=== PATIENT | male | born 1965 | race Caucasian/White ===

== ENCOUNTER 2024-02-28 11:13 | Inpatient (IN) | payer OTHER, SELFPAY ==
[2024-02-28 04:43] VITALS: BMI 30.8
[2024-02-28 04:49] VITALS: BP 163/82
--- NOTE | 2024-02-28 05:16 | ED.SKININJ ---
HPI-Injury
<JIMMY Dean - Last Filed: 02/28/24 06:58>
General
Chief Complaint: Skin Surface Trauma
Time Seen by Provider: 02/28/24 04:56
Travel History
Have you had any contact with someone who has COVID-19?: No
Do you have any symptoms of coronavirus? Fever > 100 degrees, chills, cough, shortness of breath, sore throat, loss of taste or smell, muscle aches, or headache?: No
History of Present Illness-Injury
Is pt an associate of [facility]?: No
Initial Injury comments:
This is a 58 yo male presenting for a laceration x 1 week. He states he cut his L index finger on a pulp grinder last week. States wound became more tender and swollen, and yellow throughout the week. Woke up this morning to throbbing pain. States
extremely tender to touch. He denies purulent drainage.
Past History
<JIMMY Dean - Last Filed: 02/28/24 06:58>
Past History
ED Past Medical History: HTN and Other (Migraine headache)
ED Past Surgical History: Appendectomy
Social History
Tobacco: Smoker
Alcohol: None
Drug: None
Review of Systems
<JIMMY Dean - Last Filed: 02/28/24 06:58>
Review of Systems
Allergies reviewed?: Yes
Constitutional: Reports no symptoms
Phy Exam
<JIMMY Dean - Last Filed: 02/28/24 06:58>
Physical Exam
Physical Exam:
<1 cm closed laceration located on dorsal aspect of L index finger. Finger held in slight flexion, swollen, tender, and pain with passive extension. Area is yellow with no drainage. Sensation intact, capillary refill time normal.
General Physical Exam
General Presentation: well appearing
General age: appears stated age
General Habitus: normal
General Mental: alert
Course
<JIMMY Dean - Last Filed: 02/28/24 06:58>
Orders/Labs/Results
Orders:
Orders
02/28/24 05:08
Finger(s)/Thumb 2 View Lt [CR Finger(s)/thumb Min 2 Vw Lt] Urgent
Comment:
Reason For Exam: possible FB, pus
Indicate Which Finger:: Index Finger
02/28/24 05:24
Tetanus/Diphth/Acelpertussis [Adacel] 0.5 ml IM .ONCE ONE
02/28/24 05:52
Complete Blood Count/With Diff Urgent
Comprehensive Metabolic Panel Urgent
02/28/24 05:53
CeFAZolin 2 GRAM [Ancef] 2 grams in 10 ml IV NOW
Abnormal Lab Results
02/28/24
05:52
RBC 4.13 L 10^6/uL
(4.70-6.10)
MCV 96.9 H fL
(80.0-94.0)
MCH 33.9 H pg
(27.0-31.0)
MPV 11.0 H fL
(7.4-10.4)
Absolute Monos (auto) 0.8 H 10^3/uL
(0.1-0.6)
Lymphocytes % 18.6 L %
(20.5-51.1)
Monocytes % 9.5 H %
(1.7-9.3)
Chloride 111 H mmol/L
(98-107)
Carbon Dioxide 21 L mmol/L
(22-30)
BUN 23 H mg/dl
(9-20)
Glucose 113 H mg/dl
(70-99)
02/28/24 05:52
02/28/24 05:52
Vital Signs
Initial and Last Documented VS:
Initial Vital Signs
Temp Pulse Resp BP Pulse Ox
98.2 F 51 20 163/82 99
02/28/24 04:49 02/28/24 04:49 02/28/24 04:49 02/28/24 04:49 02/28/24 04:49
Last Documented Vital Signs
Temp Pulse Resp BP Pulse Ox
98.2 F 51 20 163/82 99
02/28/24 04:49 02/28/24 04:49 02/28/24 04:49 02/28/24 04:49 02/28/24 04:49
<Celestine Alcantara, DO - Last Filed: 02/28/24 05:31>
Orders/Labs/Results
Orders:
Orders
02/28/24 05:08
Finger(s)/Thumb 2 View Lt [CR Finger(s)/thumb Min 2 Vw Lt] Urgent
Comment:
Reason For Exam: possible FB, pus
Indicate Which Finger:: Index Finger
02/28/24 05:24
Tetanus/Diphth/Acelpertussis [Adacel] 0.5 ml IM .ONCE ONE
02/28/24 05:52
Complete Blood Count/With Diff Urgent
Comprehensive Metabolic Panel Urgent
02/28/24 05:53
CeFAZolin 2 GRAM [Ancef] 2 grams in 10 ml IV NOW
Abnormal Lab Results
02/28/24
05:52
RBC 4.13 L 10^6/uL
(4.70-6.10)
MCV 96.9 H fL
(80.0-94.0)
MCH 33.9 H pg
(27.0-31.0)
MPV 11.0 H fL
(7.4-10.4)
Absolute Monos (auto) 0.8 H 10^3/uL
(0.1-0.6)
Lymphocytes % 18.6 L %
(20.5-51.1)
Monocytes % 9.5 H %
(1.7-9.3)
Chloride 111 H mmol/L
(98-107)
Carbon Dioxide 21 L mmol/L
(22-30)
BUN 23 H mg/dl
(9-20)
Glucose 113 H mg/dl
(70-99)
02/28/24 05:52
02/28/24 05:52
Vital Signs
Initial and Last Documented VS:
Initial Vital Signs
Temp Pulse Resp BP Pulse Ox
98.2 F 51 20 163/82 99
02/28/24 04:49 02/28/24 04:49 02/28/24 04:49 02/28/24 04:49 02/28/24 04:49
Last Documented Vital Signs
Temp Pulse Resp BP Pulse Ox
98.2 F 51 20 163/82 99
02/28/24 04:49 02/28/24 04:49 02/28/24 04:49 02/28/24 04:49 02/28/24 04:49
<JIMMY Dean - Last Filed: 02/28/24 06:58>
MDM/Problems Addressed
Differential Diagnosis Includes:
Infectious Tenosynovitis, abcess
MDM/Problems Addressed:
1. Infectious Tenosynovitis
- Kanaval signs positive
- X ray of L digit
- Orthopedic surgery
2. Finger Abcess
-
<JIMMY Dean - Last Filed: 02/28/24 06:58>
*Critical Care Note
Total Time (30-74mins, 75-104mins- exclusive of procedures): Not Applicable
ED Attending Note
<JIMMY Dean - Last Filed: 02/28/24 06:58>
-
Portions of this chart may have been created with voice recognition software.� Occasional wrong word or��sound alike� substitutions may have occurred due to the inherent limitations of voice recognition software.
<Celestine Alcantara, - Last Filed: 02/28/24 05:31>
ED Attending Note
Patient seen and examined by attending physician: Yes
I performed the substantive portion of visit, reviewed & personally made and approve the management plan that is documented in note by myself or ASHER.: Yes
ED Attending Note:
58-year-old male presents with injury to his left index finger that he sustained over a week ago. He states that a developed abrasion and injury to his left index finger while using a pulp grinder. Is possible that piece of metal flew off into his
wound. Patient denies fever, chills, nausea or vomiting. Patient is concerned due to infection. Patient was seen in conjunction with the PA student. I have reviewed and agree with the history and treatment plan presented. On my independent
physical exam, patient is awake, alert, and oriented x3 and spoke with Dr. Spence who states that patient should get Ancef, and kept in the emergency department until the Ortho PA gets into work. For possible aspiration.
Discharge Plan
Departure
Prescriptions:
No Action
Eliquis 5 mg Tablet
5 mg PO BID Qty: 60 0RF
furosemide 40 mg Tablet
40 mg PO DAILY Qty: 30 0RF
atorvastatin 40 mg Tablet
40 mg PO DAILY
amiodarone 200 mg tablet
200 mg PO DAILY
carvedilol 12.5 mg Tablet
6.25 mg PO BID Qty: 60 0RF
Rx Instructions:
Please note decreased dose
Referrals:
UNKNOWN - PT DOES,NOT KNOW [Unknown Provider] -
Interventions
Interventions:
*Risk Screen - Suicide Last Done: 02/28/24 04:49
*General Assessment Last Done: 02/28/24 04:49
*Neglect/Abuse Screening Last Done: 02/28/24 04:49
ED- Fall Risk Assessment Last Done: 02/28/24 04:49
*ED COVID-19 Vaccine History Last Done: 02/28/24 04:49
ED-Skin Assessment Last Done: 02/28/24 05:44
Discharge Date and Time
Print Language: [place] CITIZ[place]
[2024-02-28] MEDS: ADACEL 0.5 ML IM (05:54)
[2024-02-28 06:04] LABS: % Basophils 0.6 % (0-2); % Eosinophils 1.4 % (0-6); % Immature Granulocytes 0.2 % (0-0.5); % Lymphocytes 18.6 % (20.5-51.1); % Monocytes 9.5 % (1.7-9.3); % Neutrophils 69.7 % (42.2-75.2); Absolute Basophils 0.1 10^3/uL (0-0.2); Absolute Eosinophils 0.1 10^3/uL (0-0.7); Absolute Lymphocytes 1.7 10^3/uL (1.2-3.4); Absolute Monocytes 0.8 10^3/uL (0.1-0.6); Absolute Neutrophils 6.2 10^3/uL (1.4-6.5); Mean Corpuscular Hgb 33.9 pg (27.0-31.0); Mean Corpuscular Volume 96.9 fL (80.0-94.0); Nucleated Red Blood Cells % 0 % (-); Platelet Count 173 10^3/uL (130-400); Red Blood Cell Count 4.13 10^6/uL (4.70-6.10); Red Cell Dist. Width 12.1 % (11.5-14.5); White Blood Cell Count 8.9 10^3/uL (4.8-10.8)
[2024-02-28] MEDS: ANCEF 10 IV (06:08)
[2024-02-28 06:17] LABS: ALT (SGPT) 28 U/L (0-50); AST (SGOT) 29 U/L (17-59); Albumin 4.1 g/dl (3.5-5.0); Alkaline Phosphatase 100 U/L (38-126); Blood Urea Nitrogen 23 mg/dl (9-20); Carbon Dioxide 21 mmol/L (22-30); Chloride 111 mmol/L (98-107); Estimated Creatinine Clearance 108 ml/min; Glucose 113 mg/dl (70-99); Potassium 3.9 mmol/L (3.5-5.1); Sodium 139 mmol/L (135-145); Total Bilirubin 0.5 mg/dl (0.2-1.3); Total Protein 6.5 g/dl (6.3-8.2); eGFR > 60.00
--- NOTE | 2024-02-28 07:58 | CON.ORTHO ---
Consultation
-
Date/Time Consultation Requested: 02/28/2024; 0600
Date/Time Consultation Performed: 02/28/2024; 07
Requesting Provider: unknown
Performing Provider: Sarah Bacon PA-C for Dr. Amos Spence
Reason for Consultation: Left index finger laceration
Consultation - Orthopedics
History
Is a 58-year-old LHD male with past medical history of hypertension and migraine headaches seen today for evaluation of a laceration of his left index finger. 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
finger on a tool grinder operator external. He denies any significant bleeding from the laceration initially, but reports over the last week his finger has become progressively more swollen and tender. He woke up this morning with throbbing pain and it was extremely
tender to touch. This prompted him to present to [facility]. He denies any drainage, or purulence from the wound. He denies any fevers. He denies any issues like this in the past. He has not been evaluated for the wound up to this point.
Allergies / Home Medications
Allergy/AdvReac Type Severity Reaction Status Date / Time
No Known Allergies Allergy Verified 02/28/24 04:47
�Medication �Instructions �Recorded
apixaban 5 mg tablet (Eliquis) 5 mg PO BID Blood clot 02/08/23
prevention/tx #60 tabs
furosemide 40 mg tablet 40 mg PO DAILY Blood clot 02/08/23
prevention/tx #30 tabs
amiodarone 200 mg tablet 200 mg PO DAILY arrythmia 05/05/23
atorvastatin 40 mg tablet 40 mg PO DAILY 05/05/23
carvedilol 12.5 mg tablet 6.25 mg (1/2 x 12.5 mg) PO BID 05/05/23
Arrhythmia #60 tabs
Vital Signs / Lab Results
Temp Pulse Resp BP Pulse Ox
98.2 F 51 20 163/82 99
02/28/24 04:49 04/17/24 04:49 02/28/24 04:49 02/28/24 04:49 02/28/24 04:49
02/28/24 05:52
02/28/24 05:52
XR of the left hand taken today and independently interpreted by me reveal soft tissue swelling over the dorsum of the index finger. No obvious foreign body present.
Directed exam of the left hand reveals small laceration over the dorsal aspect of the PIP joint. Erythema over the dorsum of the finger, no streaking or extension into the rest of the hand. No obvious flexor tenosynovitis present. Small area of
fluctuance over the PIP joint. No active draining, bleeding or purulence able to be expressed. Very limited flexion of the finger secondary to pain. Patient able to maintain full extension. Sensation intact to light touch. Capillary refill less
than 2 seconds.
Assessment / Plan
Left index finger laceration
--Patient was seen and evaluated with the assistance of Dr. Bailey.
--There does appear to be a small collection overlying the PIP joint of Silvestre's left index finger. At this point there is not indication for surgical intervention. Could consider bedside incision and drainage, but will continue to monitor for the
time being.
--Admit patient for IV antibiotics and observation. Recommend Zosyn.
--TID finger soaks with warm water and chlorhexidine.
--Encouraged gentle ROM of the finger. Patient may benefit from PT/OT while admitted.
--Pain control per primary.
--Orthopedics will continue to follow along.
[2024-02-28] MEDS: ZOSYN 100 IV (09:33)
--- NOTE | 2024-02-28 10:36 | HPS.HSE ---
Family Physician
-
Family Physician: Husam Baldwin
Chief Complaint
-
Left second finger pain and swelling
History of Present Illness
58-year-old male injured his left index finger using a grinder mill operator 2 weeks ago. Subsequently developed increasing pain and swelling of the finger over the past 2 weeks. Did not seek medical care prior to arrival today. Has not been on antibiotics.
Denies fevers or chills.
Medical History
Past Medical History
Past Medical History: Reports Other
Additional Past Medical History:
Paroxysmal atrial fibrillation
Essential hypertension
Migraine headaches
Nonischemic cardiomyopathy, chronic heart failure reduced EF
Past Surgical History: Reports Appendectomy
Social History
Tobacco: Smoker
Alcohol: None
Drug: None
Family History
Family History: Not pertinent
Allergies / Home Medications
Allergies reflects when Allergies were last updated in [facility].
Home Medications with original date entered in [facility]
Allergy/Medication List:
Allergies
Allergy/AdvReac Type Severity Reaction Status Date / Time
No Known Allergies Allergy Verified 02/28/24 04:47
Home Medications
acetaminophen 325 mg tablet (Tylenol) 650 mg PO DAILYPRN PRN mild pain 02/28/24
apixaban 5 mg tablet (Eliquis) 5 mg PO BID 02/28/24
carvedilol 6.25 mg tablet 6.25 mg PO BID 02/28/24
lisinopril 5 mg tablet 5 mg PO DAILY 02/28/24
spironolactone 25 mg tablet 25 mg PO DAILY 02/28/24
Review of Systems
-
History Source: Patient
A 12 point ROS was completed and negative except as noted: Yes
Physical Exam
Vital Signs
Vital Signs
Temp Pulse Resp BP Pulse Ox
98.2 F 51 20 163/82 99
02/28/24 04:49 02/28/24 04:49 02/28/24 04:49 02/28/24 04:49 02/28/24 04:49
Physical Exam
General: Well Developed, No Apparent Distress and Comfortable
HEENT: Anicteric and Moist mucous membranes
Respiratory: Clear
Cardiac: S1/S2 and Regular Rhythm
GI: Soft, Non Tender and Non Distended
Genito-urinary: Deferred by me
Musculoskeletal: No Clubbing, No Cyanosis, No Edema and Other (Left second PIP joint diffuse erythema, swelling, tenderness with limited range of motion, superficial ulcer without drainage)
Skin: Warm and Dry
Neuro: AO x 3
Hematologic/Lymphatic: No Lymphadenopathy
Psych: Calm
Laboratory Results
-
02/28/24 05:52
02/28/24 05:52
Laboratory Results
Total Bilirubin 0.5 mg/dl (0.2-1.3) 02/28/24 05:52
AST 29 U/L (17-59) 02/28/24 05:52
ALT 28 U/L (0-50) 02/28/24 05:52
Alkaline Phosphatase 100 U/L (38-126) 02/28/24 05:52
Impression/Plan
-
Left second finger tenosynovitis -involving PIP joint. X-ray of finger shows mild diffuse soft tissue swelling, no foreign body noted. No cortical destruction. Orthopedic surgery recommends admission to the hospital, IV antibiotics, soaks. Admit
to [facility].
Start IV vancomycin, ceftriaxone.
Paroxysmal atrial fibrillation -continue Eliquis if okay with orthopedics.
Chronic heart failure reduced EF -stable.
Essential hypertension -stable.
History of migraines
Obesity due to excess calories
Full code
[2024-02-28 11:43] LABS: Erythrocyte Sed Rate 16 mm/hour (0-20)
[2024-02-28 12:00] VITALS: BP 118/84
[2024-02-28 13:29] VITALS: BP 144/58; BMI 30.3
--- NOTE | 2024-02-28 13:42 | PHA.VAN.IN ---
Assessment
- Assessment
Renal Function: Appears similar to baseline
Concomitant Antimicrobials: ceftriaxone
AUC Dosing Plan
- Dosing Variables
Dosing Weight (kg): 90
Dosing CrCl (ml/min): 108
Vd coefficient (L/kg): 0.7
- Empiric Dosing
Initial / Loading Dose: 2000mg - administration pending
Maintenance Regimen: Vanc 1250mg Q12H starting 02/28 06
Estimated AUC (mcg*h/mL): 452
Estimated Peak (mcg*h/mL): 29.3
Estimated Trough (mcg/ml): 10.9
Estimated Half Life (H): 7.4
- Monitoring
No levels ordered at this time: consider levels in next few days
Pharmacokinetics Vancomycin I
- -
Patient Age: 58
Patient Sex: Male
Vancomycin Day #: 1
Indication: Skin And Soft Tissue
Requesting Provider: Dr. Varela
Pertinent Antimicrobial Allergies:
NKDA
Height / Weight:
Height 5 ft 8 in
Actual Weight 90.35 kg
Pertinent Past Medical History: BMI ~30
- Vital Signs / Lab Results
Temp Pulse Resp BP Pulse Ox
98 F 63 18 144/58 96
02/28/24 13:29 02/28/24 13:29 02/28/24 13:29 02/28/24 13:29 02/28/24 13:29
Lab Results - Hematology
02/28/24
05:52
WBC 8.9
Lab Results - Chemistry
02/28/24
05:52
BUN 23 H
Creatinine 0.8
Estimated Creat Clear 108
Albumin 4.1
--- NOTE | 2024-02-28 14:18 | PTCARENOTE ---
Received pt from ER via [facility]; accompanied by ER staff. PT AAO x3, CAI; has decreased ROM Lt index finger d/t redness/edema/pain. pt ambulatory to bed. VSS. ON room air- pulseox 96%. Abd obese, round, to start reg diet. Pt DTV; will void in BR;
urinal at bedside. Lt index finger reddened/edematous/tender; has yellowed central area with laceration; no drainage noted. Pt instructed to keep LUE elevated on pillow. Oriented to 4East, currently resting quietly. Will continue to monitor.
[2024-02-28] MEDS: ROCEPHIN 2000 MG IV (14:57)
[2024-02-28] MEDS: VANCOCIN 540 MG IV (14:57)
[2024-02-28] MEDS: STERILE WATER FOR INJECTION 20 ML IV (14:57)
[2024-02-28 15:11] VITALS: BP 123/54
[2024-02-28] MEDS: ELIQUIS 5 MG PO (20:19)
[2024-02-28] MEDS: COREG 6.25 MG PO (20:20)
[2024-02-28 23:09] VITALS: BP 124/51
[2024-02-29] MEDS: VANCOCIN 275 MG IV ×2 (06:10→18:08)
[2024-02-29 07:55] VITALS: BP 96/65
--- NOTE | 2024-02-29 08:54 | W.PN.HOSP.TC ---
Today's Communication/Plan
-
Continue antibiotics
Await cultures
Assessment / Plan
Assessment / Plan
Gen-AAOx3, NAD
HEENT-NC, AT, anicteric, clear oral mm
Neck-supple
CV-reg, no M, +S1/S2
Lungs-clear B/L
Abd-soft, NT, ND
Ext-no edema
Musculoskeletal-no cyanosis, clubbing, left index finger with inflammation, erythema, drainage of PIP joint
Skin-warm and dry
Neuro-grossly non-focal
Psych-calm, cooperative
Left second finger tenosynovitis -involving PIP joint. X-ray of finger shows mild diffuse soft tissue swelling, no foreign body noted. No cortical destruction. Incision and drainage performed today by orthopedics. Send fluid for culture.
Continue IV antibiotics. Inflammatory markers are normal.
Paroxysmal atrial fibrillation -continue Eliquis.
Chronic heart failure reduced EF -stable.
Essential hypertension -stable.
History of migraines
Obesity due to excess calories
Full code
Anticipated Discharge: 24 - 48 hours
Subjective/Interval History
-
Date of Service: February 29, 2024
Patient seen and examined. Complaining of throbbing of left index finger.
Objective Data
-
Vital Signs:
Vital Signs
Temp Pulse Resp BP Pulse Ox
98.1 F 55 20 124/51 96
02/28/24 23:09 02/28/24 23:09 02/28/24 23:09 02/28/24 23:09 02/28/24 23:09
I&O
02/28/24 02/29/24 03/01/24
06:59 06:59 06:59
Intake Total 1020 / 1020
Balance 1020 / 1020
Review of Systems
-
History Source: Patient
All other systems: Reviewed and negative
[2024-02-29] MEDS: COREG 6.25 MG PO ×2 (09:22→20:44)
[2024-02-29] MEDS: ALDACTONE 25 MG PO (09:22)
[2024-02-29] MEDS: ELIQUIS 5 MG PO ×2 (09:23→20:43)
[2024-02-29] MEDS: ZESTRIL 5 MG PO (09:23)
--- NOTE | 2024-02-29 12:20 | W.PN.UPDATE ---
Update Note
Progress Note Update
Late document entry because of difficulty signing onto [employer]. Patient was seen February 29, 2024 at 7:30 AM.
Patient feels as though left index finger is about the same. He is tolerating IV antibiotics. He is afebrile while WBC/inflammatory markers remain normal. Small laceration noted over the dorsal aspect left index finger at the PIP joint.
Warmth and erythema noted and smallPT/OT just below the PIP joint dorsally. Tenderness noted in this vicinity. Passive motion is uncomfortable but pain does not track up the extensor tendon. Distal neurovascular was intact. After reviewing risk
and potential complications with patient he has agreed to bedside I&D. The left index finger was cleaned and prepped with warm soapy water, Betadine and alcohol. Then a 11 blade scalpel was used to make a small 3 mm incision over the skin.
Purulent drainage came out and aerobic/anaerobic cultures obtained then sent to microbiology. Additional purulent drainage was manually expressed out the incision. Light dressing was applied. He will continue with IV antibiotics, ice with
elevation and pain medication as needed. He will start dilute Hibiclens soaks and may utilize warm compresses additionally. Reevaluate tomorrow and if improvement may switch over to oral antibiotics and sent home.
[2024-02-29] MEDS: ROCEPHIN 2000 MG IV (14:01)
[2024-02-29] MEDS: STERILE WATER FOR INJECTION 20 ML IV (14:01)
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
--- NOTE | 2024-02-29 14:55 | PHA.VAN.FU ---
Vancomycin Assessment / Plan
- Assessment
Renal Function: No New Labs Today
In the past 24 hrs, patient has been: Afebrile
Concomitant Antimicrobials: ceftriaxone
- Dosing Plan
Continue: Vanc 1250mg Q12H
- Monitoring Plan
No level(s) ordered at this time: consider levels in next few days
- Follow Up
Pharmacy will continue to follow.
Vancomycin Follow UP
- -
Patient Age: 58
Patient Sex: Male
Vancomycin Day #: 2
Indication: Skin And Soft Tissue
Requesting Provider: Dr. Varela
Pertinent Antimicrobial Allergies:
NKDA
Height / Weight:
Height 5 ft 8 in
Actual Weight 90.35 kg
Pertinent Past Medical History: BMI ~30
- Vital Signs / Lab Results
Temp Pulse Resp BP Pulse Ox
98.0 F 63 18 96/65 97
02/29/24 07:55 02/29/24 09:23 02/29/24 07:55 02/29/24 09:23 02/29/24 09:21
Lab Results - Hematology
02/28/24
05:52
WBC 8.9
Lab Results - Chemistry
02/28/24
05:52
BUN 23 H
Creatinine 0.8
Estimated Creat Clear 108
Albumin 4.1
[2024-02-29 15:55] VITALS: BP 122/51
--- NOTE | 2024-02-29 16:54 | PTCARENOTE ---
Pt AAO x3, CAI well, ambulatory in room/rodas, rodo well. VSS. On room air- pulse ox 94%, no SOB noted. Abd obese, firm, rodo reg diet. Voiding in BR without difficulty. Lt index finger dsg currently D/I; pt did warm soaks x2 this shift, utilizing
K-pad to site as ordered. Resting in bed at present, no c/o. Will continue to monitor.
[2024-02-29] MEDS: FLUSH (NSS) 1 FLUSH IV (18:09)
[2024-02-29 20:36] VITALS: BP 160/70
[2024-02-29 23:43] VITALS: BP 134/52
[2024-03-01] MEDS: VANCOCIN 275 MG IV (05:31)
--- NOTE | 2024-03-01 08:25 | W.PN.HOSP.TC ---
Addendum entered and electronically signed by Saul Varela DO 03/01/24 15:13:
I spoke with Dr. Bailey of orthopedics.
Can transition to oral antibiotics and discharge. Gram stain shows preliminary gram-positive cocci. Anticipate this will be staph.
Will discharge on clindamycin, continue dilute Hibiclens soaks for the finger. Follow-up with orthopedics and primary care doctor next week.
Discussed discharge plans with the patient. He is agreeable.
Original Note:
Today's Communication/Plan
-
Await orthopedics input
Assessment / Plan
Assessment / Plan
Gen-AAOx3, NAD
HEENT-NC, AT, anicteric, clear oral mm
Neck-supple
CV-reg, no M, +S1/S2
Lungs-clear B/L
Abd-soft, NT, ND
Ext-no edema
Musculoskeletal-no cyanosis, clubbing, left index finger with inflammation, erythema, drainage of PIP joint
Skin-warm and dry
Neuro-grossly non-focal
Psych-calm, cooperative
Left second finger tenosynovitis -involving PIP joint. X-ray of finger shows mild diffuse soft tissue swelling, no foreign body noted. No cortical destruction. Incision and drainage performed 02/28 by orthopedics. Send fluid for culture.
Continue IV antibiotics. Inflammatory markers are normal. Awaiting Ortho input for today.
Paroxysmal atrial fibrillation -continue Eliquis.
Chronic heart failure reduced EF -stable.
Essential hypertension -stable.
History of migraines
Obesity due to excess calories
Full code
Anticipated Discharge: Within 24 hours
Subjective/Interval History
-
Date of Service: March 01, 2024
Patient seen and examined. States that his range of motion of the finger is improving. No complaints.
Objective Data
-
Vital Signs:
Vital Signs
Temp Pulse Resp BP Pulse Ox
97.7 F 61 14 134/52 97
03/01/24 07:41 03/01/24 07:41 03/01/24 07:41 02/29/24 23:43 03/01/24 07:41
I&O
02/29/24 03/01/24 03/02/24
06:59 06:59 06:59
Intake Total 1020 / 1020 1379 / 1379
Output Total 230 / 230
Balance 1020 / 1020 1149 / 1149
Review of Systems
-
History Source: Patient
All other systems: Reviewed and negative
[2024-03-01 08:30] VITALS: BP 144/63
--- NOTE | 2024-03-01 09:28 | PHA.VAN.FU ---
Addendum entered and electronically signed by Christina Rojas [facility] 03/01/24 09:31:
Will hold off levels for now. Anticipated to be discharged in 24 hours
Original Note:
Vancomycin Assessment / Plan
- Assessment
Renal Function: Stable
WBC's are: WNL
In the past 24 hrs, patient has been: Afebrile
Concomitant Antimicrobials: Ceftriaxone
- Monitoring Plan
Peak Level: 03/01 @ 2100
Trough Level: 03/02 @ 0530
- Follow Up
Pharmacy will continue to follow.
Vancomycin Follow UP
- -
Patient Age: 58
Patient Sex: Male
Vancomycin Day #: 3
Indication: Skin And Soft Tissue
Requesting Provider: Dr. Varela
Pertinent Antimicrobial Allergies:
NKDA
Height / Weight:
Height 5 ft 8 in
Actual Weight 90.35 kg
Pertinent Past Medical History: BMI ~30
- Vital Signs / Lab Results
Temp Pulse Resp BP Pulse Ox
97.7 F 61 14 134/52 97
03/01/24 07:41 03/01/24 07:41 03/01/24 07:41 02/29/24 23:43 03/01/24 07:41
Lab Results - Hematology
02/28/24
05:52
WBC 8.9
Lab Results - Chemistry
02/28/24
05:52
BUN 23 H
Creatinine 0.8
Estimated Creat Clear 108
Albumin 4.1
Microbiology Results
02/29/24 07:30 Body Fluid Culture - Preliminary
Fluid Gram Stain - Preliminary
[2024-03-01] MEDS: FLUSH (NSS) 1 FLUSH IV (09:37)
[2024-03-01] MEDS: ELIQUIS 5 MG PO (09:37)
[2024-03-01] MEDS: ALDACTONE 25 MG PO (09:37)
[2024-03-01] MEDS: ZESTRIL 5 MG PO (09:37)
[2024-03-01] MEDS: COREG 6.25 MG PO (09:37)
--- NOTE | 2024-03-01 10:27 | W.PN.UPDATE ---
Update Note
Progress Note Update
Patient seen this morning on a.m. rounds. Significant improvement about the index finger PIP joint demonstrates spontaneous range of motion with minimal discomfort. Cultures with early growth of gram-positive cocci but pending sensitivities.
Given the patient is typically clinically improved after superficial debridement low suspicion for septic arthritis at the PIP joint. Recommend transition towards oral antibiotics for gram-positive cocci and outpatient follow-up in 1 week, sooner
if progressing or worsening clinical symptoms.
--- NOTE | 2024-03-01 11:02 | CM ---
Patient seen bedside, provided resources for [facility]. Per chart, patient likely to transition to oral antibiotics upon discharge. CM will continue to follow for discharge planning needs.
Plan; home no needs likely.
[2024-03-01] MEDS: ROCEPHIN 2000 MG IV (14:22)
[2024-03-01] MEDS: STERILE WATER FOR INJECTION 20 ML IV (14:23)
--- NOTE | 2024-03-01 15:12 | W.DS.TRANS ---
DC Summary - [employer]
-
Discharge Instructions:
Discharge Diagnosis/Procedures Left 2nd finger tenosynovitis
Diet Regular
Activity As tolerated
Driving Restrictions As prior to admission
Bathing Restrictions None
Instructions:
Stand-Alone Forms:
Changes to Home Medications: No
Discharge Medications:
DC Medications w/original date entered in [employer] & other things you bake
acetaminophen 325 mg tablet (Tylenol) 650 mg PO DAILYPRN PRN mild pain 02/28/24
apixaban 5 mg tablet (Eliquis) 5 mg PO BID Blood Clot Prevention/Tx 02/28/24
carvedilol 6.25 mg tablet 6.25 mg PO BID Blood Pressure 02/28/24
lisinopril 5 mg tablet 5 mg PO DAILY Blood Pressure 02/28/24
spironolactone 25 mg tablet 25 mg PO DAILY Fluid Retention/Swelling 02/28/24
clindamycin HCl 300 mg capsule 600 mg (2 x 300 mg) PO TID #48 caps 03/01/24
Home Medication Changes
Pending Results: No
[2024-03-01 15:26] VITALS: BP 132/55
== END 2024-03-01 17:31 | disposition home or self-care (01) | DRG 558 ==
LOC: 4 EAST ACU 11:13
PROVIDERS: Orthopaedic Surgery Hand Surgery; ADMITTING PHYSICIAN Hospitalist; EMERGENCY PHYSICIAN Student in an Organized Health Care Education/Training Program; FAMILY PHYSICIAN Family Medicine; OTHER PHYSICIAN Orthopaedic Surgery
PROC: 0H9GXZZ Drainage of Left Hand Skin, External Approach (ICD-10-PCS; 2024-02-29)
DX: M65.9 Synovitis and tenosynovitis, unspecified (principal); I50.20 Unspecified systolic (congestive) heart failure; S61.211A Laceration without foreign body of left index finger without damage to nail, initial encounter; Z79.01 Long term (current) use of anticoagulants; F17.200 Nicotine dependence, unspecified, uncomplicated; I48.0 Paroxysmal atrial fibrillation; I11.0 Hypertensive heart disease with heart failure; E66.09 Other obesity due to excess calories; X58.XXXA Exposure to other specified factors, initial encounter
CPT/HCPCS: 73140; 80053; 85025; 85652; 86140; 87015; 87070; 87077; 87147; 87186; 87205; 90471; 90715; 96365; 96375; 99284

== ENCOUNTER 2025-05-23 23:02 | Inpatient (IN) | payer OTHER, SELFPAY ==
[2025-05-23 17:11] VITALS: BP 135/100
[2025-05-23 17:47] LABS: Hematocrit 42.2 % (39.0-52.0); Hemoglobin 13.7 g/dL (13.0-18.0); Mean Corp Hgb Conc. 32.5 g/dL (33.0-37.0); Mean Corpuscular Volume 95.3 fL (80.0-94.0); Nucleated Red Blood Cells % 1.3 % (-); Platelet Count 263 10^3/uL (130-400); Red Cell Dist. Width 16.3 % (11.5-14.5)
[2025-05-23 17:57] LABS: ALT (SGPT) 125 U/L (0-50); AST (SGOT) 116 U/L (17-59); Albumin 4.0 g/dl (3.5-5.0); Alkaline Phosphatase 129 U/L (38-126); Blood Urea Nitrogen 32 mg/dl (9-20); Calcium 8.5 mg/dl (8.4-10.2); Carbon Dioxide 22 mmol/L (22-30); Chloride 106 mmol/L (98-107); Glucose 135 mg/dl (70-99); Potassium 4.1 mmol/L (3.5-5.1); Sodium 136 mmol/L (135-145); Total Protein 6.4 g/dl (6.3-8.2); eGFR > 60.00
--- NOTE | 2025-05-23 19:51 | ED.GENMED ---
History of Present Illness
General
Chief Complaint: Breathing Problem
Source: patient
Exam Limitations: none
Time Seen by Provider: 05/23/25 19:40
History of Present Illness
History of Present Illness:
See MDM
Past History
Past History
ED Past Medical History: HTN and Other (Migraine headache)
ED Past Surgical History: Appendectomy
Social History
Tobacco: Smoker
Alcohol: None
Drug: None
Phy Exam
Physical Exam
Physical Exam:
See MDM
Scores
Heart Failure Risk
Heart Failure Risk Score: Yes
History of Stroke or TIA: No
History of intubation for respiratory distress: No
Heart rate on ED arrival >/= 110: Yes
SaO2 <90% on arrival on room air: No
HR >/=110 during 3min walk test (or too ill to perform test): Yes
ECG has acute ischemic changes: No
Urea >/=12mmol/L (BUN 33.6mg/dL): No
Serum CO2>/=35mmol/L: No
Troponin I or T elevated to TX Level (0.4mg/dL): No
NT-proBNP >/=5,000ng/L (5,000pg/ml): Yes
HF Risk Score: 3
Admission Status: HIGH RISK 15.9% Consider SNF treatment or admission to hospital
Course
Orders/Labs/Results
Orders:
Orders
05/23/25 17:14
Electrocardiogram (*1) Urgent
Reason for Study: Shortness of Breath
EKG- Treatment ONCE
05/23/25 17:29
Complete Blood Count/With Diff Urgent
Comprehensive Metabolic Panel Urgent
05/23/25 19:49
Diltiazem 125 mg/125 ml Nss [Cardizem] 125 mg in 125 ml IV NOW
Initial dose in mg/hr, then titrate:: 5
Titrate to keep:: Heart rate 80-100 bpm
Titrate by mg/hr:: 5 mg/hr
Frequency of titrations (minutes):: 15
Maximum dose in mg/hr:: 15
Diltiazem HCl [Cardizem] 20 mg IV NOW STA
05/23/25 19:52
CR Chest - 2 Views Urgent
Comment:
Reason For Exam: SOB
05/23/25 20:00
NT-proBNP Urgent
PTT Urgent
Prothrombin Time Urgent
Troponin I Urgent
05/23/25 21:16
Aspirin Chewable [Low Strength Aspirin] 324 mg PO NOW STA
Diltiazem HCl [Cardizem] 25 mg IV NOW STA
Furosemide [Lasix] 40 mg IV NOW STA
Abnormal Lab Results
05/23/25 05/23/25
17:29 20:00
WBC 16.8 H 10^3/uL
(4.8-10.8)
RBC 4.43 L 10^6/uL
(4.70-6.10)
MCV 95.3 H fL
(80.0-94.0)
MCHC 32.5 L g/dL
(33.0-37.0)
RDW 16.3 H %
(11.5-14.5)
MPV 11.0 H fL
(7.4-10.4)
Abs Immat Gran (auto) 0.1 H 10^3/uL
(0-0.05)
Absolute Neuts (auto) 11.9 H 10^3/uL
(1.4-6.5)
Absolute Monos (auto) 1.5 H 10^3/uL
(0.1-0.6)
Lymphocytes % 18.8 L %
(20.5-51.1)
PT 16.0 H Sec
(11.4-14.6)
BUN 32 H mg/dl
(9-20)
Glucose 135 H mg/dl
(70-99)
AST 116 H U/L
(17-59)
ALT 125 H U/L
(0-50)
Alkaline Phosphatase 129 H U/L
(38-126)
Troponin I 0.056 H* ng/ml
05/23/25 17:29
05/23/25 17:29
Vital Signs
Initial and Last Documented VS:
Initial Vital Signs
Temp Pulse Resp BP Pulse Ox
97.9 F 162 18 135/100 96
05/23/25 17:11 05/23/25 17:11 05/23/25 17:11 05/23/25 17:11 05/23/25 17:11
Last Documented Vital Signs
Temp Pulse Resp BP Pulse Ox
97.9 F 139 27 129/96 95
05/23/25 17:11 05/23/25 21:04 05/23/25 21:04 05/23/25 20:09 05/23/25 21:04
MDM/Problems Addressed
Differential Diagnosis Includes:
HPI and MDM Narrative:
59-year-old male presenting for evaluation of shortness of breath and palpitations. Patient has a history of A-fib. He states he stopped his medications about 2 weeks ago. Palpitations and tachycardia occurred about 1 week ago. Patient states
that shortness of breath occurred earlier today. On exam, patient is tachycardic and irregular. He is not a cardioversion candidate due to his noncompliance to Eliquis. Patient has +2 pitting edema in bilateral lower extremities. Will place on
Cardizem drip and give Cardizem bolus and obtain chest x-ray with concern for CHF
Physical exam
General: Well appearing and non-toxic
HEENT: protecting airway
Neck: appears supple
CV: No evidence of cyanosis. Tachycardic and irregular
Resp: No accessory muscle use poor air exchange
Abd: Non-distended
Extremities: +2 pitting edema bilateral lower extremities
Neuro: alert
Psych: Normal affect
Skin: Intact
Problems Addressed including Acute and Chronic Conditions affecting care:
1. A-fib with RVR
Acuity: acute
Prognosis: unstable
Details: Based on Eliquis noncompliance, patient is not a cardioversion candidate. Will give Cardizem bolus and placed on Cardizem drip
2. Leg edema
Acuity: acute
Prognosis: stable
Details: Given concern for CHF, will obtain chest x-ray
Updates
Troponin mildly elevated but this could be rate related. Will give aspirin. Chest x-ray consistent with pulmonary edema. Will give IV Lasix. Will give second dose of Cardizem bolus given persistent tachycardia and admit
Given tachypnea and pulse ox of 90%, patient placed on 2 L nasal cannula
Differential Diagnosis (but not limited to): A-fib, congestive heart failure, pneumonia
Testing considered: D-dimer
Drug therapy (if applicable): OTC meds, please see d/c instruction regarding Rx drugs
Amount and/or Complexity of Data Reviewed
Clinical info obtained from: Patient
External data reviewed: N/A
Labs I independently reviewed (but not limited to): Leukocytosis
Radiology: X-ray independently reviewed: Chest x-ray consistent with pulmonary edema
Pulse Ox: not hypoxic
EKG independently reviewed: A-fib with RVR, normal axis, no STEMI
Knife Operator: A-fib
Critical Care: The high probability of a clinically significant, sudden or life threatening deterioration of the cardiovascular system(s) required my full and direct attention, intervention and personal management. The aggregate critical care time
was 33 minutes. This time is in addition to time spent performing reported procedures but includes the following:
[x] Data Review and interpretation
[x] Patient assessment and monitoring of vital signs
[x] Documentation
[x] Medication orders and management
Risk of Complication:
Social Determinants of health: Good social support
Discussed with other providers: Hospitalist
Escalation of Care includes Admit/Obs: Given uncontrolled A-fib and pulmonary edema, will admit
Occasional wrong word or 'sound a like' substitutions may have occurred due to the inherent limitations of voice recognition software. Read the chart carefully and recognize, using context, where substitutions have occurred.
*Pulse Oximetry
SaO2: 90
Nasal Cannula flow liters per minute: 2
Patient hypoxic: yes
*Critical Care Note
Total Time (30-74mins, 75-104mins- exclusive of procedures): 33 min
ED Attending Note
-
Portions of this chart may have been created with voice recognition software.� Occasional wrong word or��sound alike� substitutions may have occurred due to the inherent limitations of voice recognition software.
Discharge Plan
Departure
Patient Disposition: Admit
Date of Disposition: 05/23/25
Time of Disposition: 21:19
Admit to: Telemetry
Presentation/result/management discussed w/ accepting MD/DO: Hospitalist
Discharge Problem:
Pulmonary edema, Atrial fibrillation with RVR
Prescriptions:
No Action
acetaminophen [Tylenol] 325 mg Tablet
325 mg PO DAILYPRN PRN (Reason: mild pain)
carvedilol 6.25 mg Tablet
6.25 mg PO BID
spironolactone 25 mg Tablet
25 mg PO DAILY
lisinopril 5 mg Tablet
5 mg PO DAILY
Eliquis 5 mg Tablet
5 mg PO BID
Referrals:
Husam Baldwin MD [Family Provider, Family Practice]
Interventions
Interventions:
*Risk Screen - Suicide Last Done: 05/23/25 17:14
*General Assessment Last Done: 05/23/25 17:13
*Neglect/Abuse Screening Last Done: 05/23/25 17:14
*ED COVID-19 Vaccine History Last Done: 05/23/25 17:14
ED- Cardiac Assessment Last Done: 05/23/25 20:35
ED- Pulmonary Assessment Last Done: 05/23/25 20:35
Discharge Date and Time
Print Language: PANAMANIAN
[2025-05-23] MEDS: CARDIZEM 20 MG IV (20:03)
[2025-05-23] MEDS: CARDIZEM 125 IV (20:04)
[2025-05-23 20:09] VITALS: BP 129/96; BMI 32.0
[2025-05-23 20:48] LABS: Troponin I 0.056 ng/ml
[2025-05-23 20:49] LABS: APTT 27.2 Sec (23.4-35.0); PT 16.0 Sec (11.4-14.6)
[2025-05-23 20:51] LABS: INR 1.25
[2025-05-23 21:08] VITALS: BP 118/95
[2025-05-23] MEDS: LOW STRENGTH ASPIRIN 324 MG PO (21:23)
[2025-05-23] MEDS: LASIX 40 MG IV (21:24)
[2025-05-23] MEDS: CARDIZEM 25 MG IV (21:24)
[2025-05-23 23:00] VITALS: BP 117/97
--- NOTE | 2025-05-23 23:49 | HPS.HSE ---
Family Physician
-
Family Physician: Husam Baldwin
Chief Complaint
-
Dypsnea
History of Present Illness
59-year-old male with paroxysmal A-fib, hypertension, CHF who presents with dyspnea for the last 2 weeks, progressively worsening. Today his friend encouraged him to come to the ER because he was so short of breath with conversation. Patient is
supposed to be on Eliquis, carvedilol, lisinopril, spironolactone but reports that he recently ran out 2 weeks ago and did not refill his meds due to the cost. He notes progressively worsening lower extremity edema, weight gain, a distended
abdomen, cough productive of white sputum, fatigue, and orthopnea. He denies chest pain, fevers or chills.
In ED patient was found to be in A-fib with RVR with heart rate as high as 177 on EKG.
Medical History
Past Medical History
Past Medical History: Reports Other
Additional Past Medical History:
Paroxysmal atrial fibrillation
Essential hypertension
Migraine headaches
Nonischemic cardiomyopathy, chronic heart failure reduced EF
Past Surgical History: Reports Appendectomy
Social History
Tobacco: Former Smoker
Alcohol: Occasional (1 drink per week socially)
Drug: None
Living: Alone
Family History
Family History: Cancer (Mother) and Other (Father in an accident)
Allergies / Home Medications
Allergies reflects when Allergies were last updated in [facility].
Home Medications with original date entered in [facility]
Allergy/Medication List:
Allergies
Allergy/AdvReac Type Severity Reaction Status Date / Time
No Known Allergies Allergy Verified 02/28/24 13:33
Home Medications
acetaminophen 325 mg tablet (Tylenol) 325 mg PO DAILYPRN PRN mild pain 02/28/24
apixaban 5 mg tablet (Eliquis) 5 mg PO BID Blood Clot Prevention/Tx 02/28/24
carvedilol 6.25 mg tablet 6.25 mg PO BID Blood Pressure 02/28/24
lisinopril 5 mg tablet 5 mg PO DAILY Blood Pressure 02/28/24
spironolactone 25 mg tablet 25 mg PO DAILY Fluid Retention/Swelling 02/28/24
Review of Systems
-
A 12 point ROS was completed and negative except as noted: Yes
Physical Exam
Vital Signs
Vital Signs
Temp Pulse Resp BP Pulse Ox
97.9 F 114 18 118/95 92
05/23/25 17:11 05/23/25 22:47 05/23/25 22:47 05/23/25 21:08 05/23/25 22:30
Physical Exam
General: Respiratory Distress, Obese and Other (Conversational dyspnea)
HEENT: Moist mucous membranes and PERRLA
Respiratory: Rales (Bilaterally at base of); No Accessory Resp Muscle Use
Cardiac: S1/S2, Irregular Rhythm and Tachycardia; No Murmur
GI: Non Tender, Normal Bowel Sounds and Distended
Musculoskeletal: Edema, Right Upper Extremity and Edema, Left Lower Extremity
Skin: Warm and Dry; No Rash, Jaundice or Ulcers
Neuro: Awake, Alert and AO x 3
Hematologic/Lymphatic: No Lymphadenopathy
Psych: Calm
Laboratory Results
-
05/23/25 17:29
05/23/25 17:29
Laboratory Results
PT 16.0 Sec (11.4-14.6) H 05/23/25 20:00
INR 1.25 05/23/25 20:00
APTT 27.2 Sec (23.4-35.0) 05/23/25 20:00
Total Bilirubin 0.9 mg/dl (0.2-1.3) 05/23/25 17:29
AST 116 U/L (17-59) H 05/23/25 17:29
ALT 125 U/L (0-50) H 05/23/25 17:29
Alkaline Phosphatase 129 U/L (38-126) H 05/23/25 17:29
Troponin I 0.056 ng/ml H* 05/23/25 20:00
CXR: Interstitial pulmonary edema with small bilateral pleural effusions.
Data Reviewed
-
Diagnostic Radiology: Image Personally Visualized and interpreted
Lab Data: Labs Reviewed by me
Impression/Plan
-
IMPRESSION:
59-year-old male with A-fib, hypertension, and CHF, presenting with A-fib with RVR and flash pulmonary edema in setting of medical noncompliance.
PLAN:
Atrial fibrillation with RVR:
Patient still tachycardic, but improved. Placed on Cardizem drip, continue. Resume home Coreg and titrate down drip as able. Cardiology consult placed.
Resume Eliquis.
Acute on chronic CHF:
In setting of A-fib with RVR and medical noncompliance. Elevated proBNP and pulmonary edema on x-ray, as well as dyspnea and lower extremity edema. Will check repeat echo, last was from 2022.
Start IV Lasix twice daily.
Resume LAKESHA I, spironolactone, carvedilol.
Daily weights, I/O
Cardiology follow-up
Leukocytosis:
Could be reactive, patient denies any infectious signs or symptoms, and no evidence of infection on current workup. Monitor trend and watch for fever.
Elevated LFTs:
Suspect congestive hepatopathy, continue to trend with diuresis. If not improved then can check abdominal ultrasound
HTN: Continue lisinopril, Coreg, spironolactone
DVT prophylaxis with Eliquis
full code
[2025-05-24] VITALS (56 sets, daily range): BP systolic 44–152; BP diastolic 27–130; BMI 30.3
[2025-05-24] MEDS: COREG PO ×2 (03:10→21:54)
[2025-05-24] MEDS: CARDIZEM 125 IV (03:56)
[2025-05-24 03:58] LABS: Hematocrit 40.3 % (39.0-52.0); Hemoglobin 13.1 g/dL (13.0-18.0); Mean Corp Hgb Conc. 32.5 g/dL (33.0-37.0); Mean Corpuscular Volume 94.2 fL (80.0-94.0); Nucleated Red Blood Cells % 0.9 % (-); Platelet Count 241 10^3/uL (130-400); Red Cell Dist. Width 16.1 % (11.5-14.5)
[2025-05-24 04:20] LABS: Blood Urea Nitrogen 32 mg/dl (9-20); Calcium 8.3 mg/dl (8.4-10.2); Carbon Dioxide 18 mmol/L (22-30); Chloride 107 mmol/L (98-107); Estimated Creatinine Clearance 87 ml/min; Glucose 129 mg/dl (70-99); Potassium 4.0 mmol/L (3.5-5.1); Sodium 138 mmol/L (135-145); eGFR > 60.00
[2025-05-24 04:32] LABS: Troponin I 0.064 ng/ml
[2025-05-24] MEDS: ELIQUIS 5 MG PO ×2 (09:30→21:55)
[2025-05-24] MEDS: ALDACTONE 25 MG PO (09:31)
[2025-05-24] MEDS: ZESTRIL 5 MG PO (09:31)
[2025-05-24] MEDS: LASIX 40 MG IV (09:31)
[2025-05-24] MEDS: COREG 6.25 MG PO (09:31)
--- NOTE | 2025-05-24 09:58 | CON.CAR ---
Addendum entered and electronically signed by Dameon Kyle MD 05/24/25 12:47:
59-year-old man who presented in 2022 with new onset atrial fibrillation and tachycardia mediated cardiomyopathy, now admitted with recurrent atrial fibrillation after running out of medication, with most recent EF in June 2023 51%. Last seen in
our office in December 2019 for
PMH: Nonischemic cardiomyopathy, normal coronary arteries by cardiac catheterization 2022, PAF, hypertension, former smoker, degenerative disc disease, migraines
SH: Lives alone, former smoker 1 drink per week
Family history noncontributory
Outpatient meds (not taking recently) apixaban 5 mg twice daily, carvedilol 6.25 mg twice daily, lisinopril 5 mg daily, spironolactone 25 mg daily, had been on amiodarone as outpatient
128/105, pulse 118, respiratory rate 24, afebrile, weight is 93.1 kg, if accurate 5 kg, now intubated, was obtunded/unresponsive, lungs were clear, bradycardic distant heart sounds, not much edema.
ECG atrial fibrillation, nonspecific ST-T wave changes, PVCs versus aberrantly ventricular conduction, borderline low voltage
White count 18.5, hemoglobin 13.1, BUN and creatinine are 32 and 1, potassium 4.0, proBNP 6860, troponin 0.064
Impression:
As below per Joselyn Holly. Reviewed in detail and agree, unless otherwise specified.
Plan:
Seen after rapid response/code 9 called, bradycardia down, blood pressure less than 50, heart rate approximately 40. Required paralysis and intubation after receiving epi and started on norepinephrine. Now heart rate in 80s, blood pressure
approximately 100.
Suspect this related to diltiazem and hypotension from diuresis.
He presented with initially with atrial fibrillation possibly related to withdrawal of medications and I suspect may now have a recurrence of HFrEF related to a tachycardia mediated cardiomyopathy.
Plan will be for rate control as possible and diuresis.
Initial plan had been for transesophageal echo and cardioversion, we will need to rethink strategy based on his clinical course in the ICU.
Original Note:
Consultation
Consultation Request
Date/Time Consultation Requested: 05/24/2025, 0245
Date/Time Consultation Performed: 05/24/2025, 1000
Requesting Provider: Dr Brasher
Performing Provider: TABITHA Ortiz for Dr Kyle
Reason for Consultation: afib
Medical History
-
Chief Complaint: SOB
History of Present Illness:
59-year-old man past medical history of heart failure recovered EF, paroxysmal/persistent atrial fibrillation, nonischemic cardiomyopathy, PVCs, hypertension presented to ED 05/23/2025 with 2-week history of dyspnea on exertion, abdominal distention
and lower extremity edema. He ran out of meds one week ago and did not refill due to cost. Home meds are Eliquis, carvedilol, spironolactone, lisinopril.
ED workup revealed pulmonary edema on x-ray, elevated proBNP 6860, EKG atrial fibrillation with rapid ventricular response, heart rate 177 bpm.
He was started on diltiazem drip and treated with IV Lasix. Heart rates now improved to 110s. Restarted on home meds including Eliquis, carvedilol, lisinopril, spironolactone.
Troponin 0.056�> 0.064
PMHx:
Paroxysmal/persistent atrial fibrillation
-Status post LENARD/cardioversion January 2023, CV February 2023, started on Amio 01/2023
-Seen by EP, Dr. Uribe in outpatient setting for evaluation for rhythm control. At the time had intermittent hematochezia- GI evaluation advised to ensure no issues with continued anticoagulation. He had colonoscopy which revealed polyp and
internal hemorrhoids and hemorrhoids thought to be source of bleeding.
- He was previously treated with amiodarone, stopped 09/2023 due to concern of half-way toxicity
-in NSR at last cardiology OV 12/2023, per note reports patient did not want to proceed with ablation
Nonischemic cardiomyopathy
Heart failure recovered EF
HTN
Migraine
Appendectomy
Patient had cardiac cath 05/05/2025 with normal coronary arteries
Past Medical History
Past Medical History: Other (as above)
Past Surgical History: Other (as above)
Social History
Tobacco: Former Smoker
Alcohol: Occasional
Employment: Employed
Family History
Family History: CAD and Other (Mom with OK/CHF)
Allergies / Home Medications
Allergy/AdvReac Type Severity Reaction Status Date / Time
No Known Allergies Allergy Verified 02/28/24 13:33
�Medication �Instructions �Recorded �Confirmed �Type
acetaminophen 325 mg tablet 325 mg PO DAILYPRN PRN mild pain 02/28/24 05/23/25 History
(Tylenol)
apixaban 5 mg tablet (Eliquis) 5 mg PO BID Blood Clot 02/28/24 05/23/25 History
Prevention/Tx
carvedilol 6.25 mg tablet 6.25 mg PO BID Blood Pressure 02/28/24 05/23/25 History
lisinopril 5 mg tablet 5 mg PO DAILY Blood Pressure 02/28/24 05/23/25 History
spironolactone 25 mg tablet 25 mg PO DAILY Fluid 02/28/24 05/23/25 History
Retention/Swelling
Review of Systems
-
History Source: Patient
All other systems: Negative unless noted
Physical Exam
Vital Signs
Temp Pulse Resp BP Pulse Ox
97.4 F 118 24 128/105 95
05/24/25 07:49 05/24/25 09:31 05/24/25 07:15 05/24/25 09:31 05/24/25 07:15
Lab Results
05/24/25 03:32
05/24/25 03:32
Troponin I 0.064 ng/ml H* 05/24/25 03:32
Xrc-V-Dcnmurhobfa Pept 6860 pg/ml 05/23/25 20:00
GEN: No distress, awake, Ox3
HEENT: supple, anicteric, mmm
LUNGS: CTA, decreased breath sounds bilateral bases
CV: Irregular irregular, no murmur
ABD: soft, BS+, distended
EXT: Trace lower extremity edema
NEURO: Gross non-focal
SKIN: No rash
Impression / Plan
-
PCP: Dr. Baldwin
Appeals Reviewer Veteran: Dr Donaldson
Assessment:
AFib RVR
Acute heart failure recovered EF
Elevated troponin
Nonischemic cardiomyopathy
HTN
Hyperglycemia
Leukocytosis
Previous cardiovascular testing:
Left heart cath 05/05/2023: Normal coronary arteries
Echo 02/06/2023: EF 41%, mild to moderate MR
Echo 06/29/2023: EF 51%
Plan:
Presents in AFib with rapid ventricular response and acute heart failure.
A-fib:
-ventricular rates still elevated but better controlled with diltiazem gtt at 15 mg/hr and back on Coreg 6.25 mg bid
-Telemetry personally reviewed: Atrial fibrillation 100s to 120s
-Restarted on Eliquis but had been off for a week
- try to wean down Diltiazem gtt, could uptitrate Coreg dose if HRs remain elevated with wean
-h/o CM in setting of afib with RVR in past, 2022. At that time was started on short term Amiodarone and had CV x2, restoring NSR. Ablation discussed but not performed.
-Check TTE
-if doesn't convert spontaneously, tentatively plan for LENARD/DCCC on Monday
-[id number] 2 HTN, HF
-check TSH
-Mildly volume overloaded and elevated BNP and pulm edema on CXR. Requiring O2 3L c/w acute HF
-Cont IV lasix
-Check TTE
-restarted home GDMT: Spironolactone, lisinopril, carvedilol. Consider addition of SGLT2
-Troponin elevation, suspect nonmyocardial troponin elevation
-Trend to peak
Data Reviewed
-
EKG: Tracing Personally Visualized and interpreted
Labs: Labs Reviewed by me
--- NOTE | 2025-05-24 10:00 | PTCARENOTE ---
Addendum entered by Erich Kay RN 05/24/25 12:49:
Patient reported feeling tired and requested to get back to bed. Tech helped patient back to bed. Patient reported dizziness, VSS. Cardizem gtt turned off at 1210. Patient urinated 100ml in bed in urinal. 1215 patient used call moreira but became
restless briefly followed by unresponsive, gasping, hannon and bradycardic. Code 9 called. See code 9 paper documentation.
Original Note:
Patient AAOx3. Up in chair. VSS. Cardizem gtt infusing per protocol, see documentation. Afib, HRs 90-110. Patient denies chest pain. Some SALDA[place]A. 3L NC. Using call moreira appropriately. Will closely monitor.
--- NOTE | 2025-05-24 11:25 | W.PN.HOSP.TC ---
Today's Communication/Plan
-
see plan
Assessment / Plan
Assessment / Plan
Gen: NAD, AAOx3.
Eyes: EOMI, PERRLA, no scleral icterus.
Neck: supple.
CV: tachy, irreg/irreg, +S1/S2, no m/r/g.
Resp: dec BS in the bases
Abd: +BS, soft, NT, ND
Skin: No rashes. 1+ B/L LE edema R>L
Neuro: CN 2-12 intact, non-focal.
Psych: Normal mood and affect.
CXR: Interstitial pulmonary edema with small bilateral pleural effusions.
Atrial fibrillation with RVR:
-s/p LENARD/cardioversion January 2023, CV February 2023, started on Amio 01/2023
-h/o GIB due to hemorrhoids
-in the past pt did not want to have ablation
-cont Coreg/eliquis
-cont Cardizem gtt
Acute on chronic HF with recovered EF:
-due to Afib with RVR due to medical noncompliance
-check echo
-cont ACEi/Aldactone/Coreg
-cont IV Lasix
-daily wts, I/Os
-cards following
Other problems:
Leukocytosis, likely reactive, no evidence of infection
Mild transaminitis, likely due to congestive hepatopathy
Essential HTN: Continue lisinopril/Coreg/spironolactone
Obesity due to excess calories
FULL/Eliquis
Total time spent on today's encounter was 50 minutes which included time spent in counseling the patient/family regarding diagnosis and treatment plan as listed above, goals of care, and symptom management. Case was discussed with nursing staff,
specialists, and care coordinators/case management. All labs and imaging personally reviewed by me. Remainder the time spent in detailed review of previous records, lab data, imaging, and other medical provider documentation.
Anticipated Discharge: 24 - 48 hours
Subjective/Interval History
-
Date of Service: May 24, 2025
No new complaints. Still with shortness of breath and cannot answer whether it is better or worse than yesterday.
Objective Data
-
Labs:
Laboratory Results
05/24/25
03:32
WBC 18.5 H
Hgb 13.1
Hct 40.3
Plt Count 241
Sodium 138
Potassium 4.0
Chloride 107
Carbon Dioxide 18 L
BUN 32 H
Creatinine 1.0
Glucose 129 H
Calcium 8.3 L
Vital Signs:
Vital Signs
Temp Pulse Resp BP Pulse Ox
97.4 F 118 24 128/105 95
05/24/25 07:49 05/24/25 09:31 05/24/25 07:15 05/24/25 09:31 05/24/25 07:15
I&O
05/23/25 05/24/25 05/25/25
06:59 06:59 06:59
Intake Total 120 / 120
Output Total 100 / 100
Balance 20 / 20
--- NOTE | 2025-05-24 12:32 | W.PN.UPDATE ---
Update Note
Progress Note Update
FREELANCE COPYWRITER called for bradycardia and unresponsiveness. Became hypotensive, and was given 1mg epi. Never because pulseless. Intubated for airway protection. Case discussed with cardiology. Stop cardizem gtt. Was given IVFs for hypotension. Stop IVFs. Start
Levophed. Case discussed with Drs. JUSTUS Kyle and Sami, and RN. Transfer to ICU.
[2025-05-24] MEDS: SUBLIMAZE 50 MCG IV ×2 (12:41→13:29)
[2025-05-24 12:44] LABS: Glucose - Point of Care 202 mg/dl (70-99)
[2025-05-24] MEDS: LEVOPHED 250 IV ×4 (12:45→19:58)
--- NOTE | 2025-05-24 12:45 | CON.INTV ---
Consultation
Consultation Request
Date/Time Consultation Requested: 05/24
Date/Time Consultation Performed: 05/24
Reason for Consultation: Critical care
Medical History
-
History of Present Illness:
History obtained from the chart, reviewed case with primary service, cardiology. 59-year-old male with history of hypertension, history of heart failure, atrial fibrillation who brought himself into [facility] because of increasing
shortness of breath. According to ED records, patient had stopped medications about 2 weeks ago. Patient developed palpitations about 1 week ago with increasing shortness of breath. Upon arrival to [facility], afebrile, pulse 162,
breathing at 18, blood pressure 135/100, 96%. Patient was noted to have 2+ edema, started on Cardizem drip. Chest x-ray with evidence of mild heart failure with small pleural effusions. Additional history review revealed noncompliance with
Eliquis. Troponin was mildly elevated. Patient was given aspirin and IV Lasix in the ED as well, admitted 05/23. Hospital course reviewed. Patient with minimal diuresis since admission, code 9 was called in the a.m. of 05/24. Patient apparently
was moving from the chair to the bed, felt fatigued. According to the nurse, 'did not look good', heart rate decreased and code was called. Pulse was not lost. Patient had pulse, heart rate in the 40s. Cardizem drip was stopped, patient was
given IV fluids, epi x 1 with improvement in blood pressure to systolic 100s. Patient with agonal breathing, decreased breath sounds. Decision was made to intubate. Initial breath sounds adequate, patient transferred to ICU for further management.
.
PMH: Atrial fibrillation status post cardioversion 2022 on amiodarone in the past, Eliquis, noncompliant with the latter, history of nonischemic cardiomyopathy with recovered EF 51%, hypertension, history of heart failure systolic/diastolic,
Past Medical History
Past Medical History: None (See above)
Past Surgical History: None (See above)
Social History
Tobacco: Former Smoker (quit )
Alcohol: Occasional (occ beer)
Drug: None
Personal:
Living: Alone
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
Family History
Family History: Other (Mother with coronary disease, heart failure)
Allergies / Home Medications
Allergies
Allergy/AdvReac Type Severity Reaction Status Date / Time
No Known Allergies Allergy Verified 02/28/24 13:33
Home Medications
�Medication �Instructions �Recorded �Confirmed �Last Taken �Type
acetaminophen 325 mg tablet 325 mg PO DAILYPRN PRN mild pain 02/28/24 05/23/25 05/23/25 History
(Tylenol)
apixaban 5 mg tablet (Eliquis) 5 mg PO BID Blood Clot 02/28/24 05/23/25 2 Weeks Ago History
Prevention/Tx ~05/09/25
carvedilol 6.25 mg tablet 6.25 mg PO BID Blood Pressure 02/28/24 05/23/25 2 Weeks Ago History
~05/09/25
lisinopril 5 mg tablet 5 mg PO DAILY Blood Pressure 02/28/24 05/23/25 2 Weeks Ago History
~05/09/25
spironolactone 25 mg tablet 25 mg PO DAILY Fluid 02/28/24 05/23/25 2 Weeks Ago History
Retention/Swelling ~05/09/25
Review of Systems
-
Unable to Obtain full review of systems at this time due to: Acuity and Patient Intubation
History Source: Family
Vitals / Labs / Diagnostic Testing
Vital Signs
Temp Pulse Resp BP Pulse Ox
98.2 F 73 12 91/60 91
05/24/25 11:57 05/24/25 12:30 05/24/25 12:30 05/24/25 12:30 05/24/25 12:43
Lab Data
05/24/25 03:32
05/24/25 03:32
Laboratory Results
05/23/25
20:00
PT 16.0 H
INR 1.25
APTT 27.2
Diagnostic Testing:
Physical Exam
-
HEENT: Normocephalic, Anicteric, Other (Poor dentition) and Other (Large neck)
Cardiovascular: S1/S2, Regular Rhythm (Bradycardia), Murmur (n) and Peripheral Edema (1-2+)
Respiratory: Wheeze (n), Rales (n), Rhonchi (n), Non-Labored Respirations, Other (ET tube) and Other (Decreased breath sounds)
GI: Soft, Non Distended (Obese) and Non Tender
Neurology: Other (Sedated)
Skin: Other (Chronic venous stasis changes) and Other (Mild macular rash right flank)
General: Comfortable
Assessment
-
59-year-old male with history of nonischemic cardiomyopathy recovered in 2022 to 51%, atrial fibrillation with RVR, history of ablation in the past, noncompliant with medications, off anticoagulation, presents with worsening shortness of breath,
palpitations, increased lower extremity TJ admitted 05/23. Started on Cardizem drip, diuresis. Patient had episode of bradycardia with change in mental status, loss of consciousness 05/24. Patient did not lose pulse, did not require CPR. Cardizem
drip stopped, given IV fluids, 1 mg epinephrine with improvement in heart rate and blood pressure but patient with agonal breathing, decreased breath sounds. Decision was made to intubate, transferred to ICU 05/24
VDRF,s/p intubation
Agonal breathing, airway protection
Mental status changes, in the setting of bradycardia
Hypotension, suspect cardiac
Atrial fibrillation with RVR
Admitted 05/23, started on Cardizem drip
History of ablation 2022
Stopped medications 2 weeks ago (Eliquis)
On amiodarone in the past, discontinued
Acute congestive heart failure
Suspect secondary to diastolic dysfunction, poorly controlled atrial fibrillation
[facility] 2022 normal coronaries
Leukocytosis
Mild transaminitis
Conditions present prior to admission
Morbid obesity
Poor dentition
Tobacco history
Family history of coronary disease/heart failure (mother)
Plan/recommendations
At this time, patient is critically ill, intubated for airway protection, mental status changes, agonal breathing
Upon arrival to ICU, persistent hypotension noted, bradycardia in the 40s to 50s
Patient became agitated, was not ventilating appropriately. Improved with suction
Ace catheter placed
Fentanyl drip started, propofol initiated
Was able to better synchronize with the ventilator
Per discussion with cardiology, provided glucagon IV, calcium gluconate, calcium chloride
With this blood pressure improved. Currently on norepinephrine
Vasopressin also added
Presently blood pressure in the 110s, heart rate remains in the 50s
Patient adequately sedated
Breath sounds bilateral
Chest x-ray with what appears to be congestive heart failure, pleural effusions
ABG reviewed. Creatinine increased to 1.6
Moving forward
Continue with volume-cycled ventilation
Hold off on increasing PEEP for now, wean FiO2 to maintain saturation greater than 92%
Decrease to 80%, try to get down to 60%
Reassessed PEEP depending on hemodynamics
Would hold Lasix for now given hypotension but this will be deferred to cardiology. May consider intermittent Lasix as patient appears to be in heart failure
Will discontinue diltiazem for now
Echocardiogram pending although suspect EF will be depressed based on discussion with cardiology
Hold IV fluids
Remains on Eliquis 5 mg twice a day
Dobbhoff tube placed. Can continue with oral meds via Dobbhoff
Creatinine increased to 1.[address]
Urine output minimal
Hold nephrotoxic agents for now
Would prefer to hold on IV contrast head and neck CT imaging at this time. Doubt stroke
Patient thrashing about, attempting to pull tube out, eyes open, tracking appropriately when in ICU prior to resedation
This will be deferred to primary service and neurology
I did contact patient family currently in [place]
Spoke with [id number] and sister Frances
All questions answered
Reviewed with critical care nursing, respiratory care, pharmacy
Reviewed with primary service, cardiology
TCCT 76 min
[2025-05-24 12:54] LABS: Hematocrit 44.1 % (39.0-52.0); Hemoglobin 14.2 g/dL (13.0-18.0); Mean Corp Hgb Conc. 32.2 g/dL (33.0-37.0); Mean Corpuscular Volume 96.9 fL (80.0-94.0); Nucleated Red Blood Cells % 2.1 % (-); Platelet Count 239 10^3/uL (130-400); Red Cell Dist. Width 16.4 % (11.5-14.5)
--- NOTE | 2025-05-24 12:58 | W.PN.UPDATE ---
Update Note
Progress Note Update
Case discussed with JUSTUS Kyle over [facility]. He raised the concern of whether pt's unresponsive episode could be due to acute stroke. In my opinion the alternative etiology of cardiogenic syncope due to bradycardia in the setting of uncontrolled
atrial fibrillation on a Cardizem drip as well as decompensated congestive heart failure is exceedingly more likely. Nevertheless I did place an order for stat CT scan of the brain. I did discuss the case with Dr. Lovell over the phone and she
will see the pt in consult. Dr. Gallardo updated over the phone. Dr. Lovell will also be ordering CTA head/neck and CT Brain perfusion as per my discussion with her.
[2025-05-24 13:06] LABS: APTT 27.8 Sec (23.4-35.0); INR 1.70; PT 20.2 Sec (11.4-14.6)
--- NOTE | 2025-05-24 13:06 | CON.NEURO ---
Consultation
Order
Date of Consultation: 05/24/25
Requesting Provider: Giovanni Villarreal MD
Reason for Consult: Change in mental status.
Neurology Consultation Note.
HPI: This is a 59-year-old man who presented to [facility] 05/23/2025 with dyspnea and found to have atrial fibrillation RVR. Neurology consultation was requested for evaluation and management of acute encephalopathy.
The patient sustained unwitnessed fall?. VS(12:19) BP�49/38, heart rate�46, afebrile
EKG: atrial fibrillation, ventricular rate�51 with QTc�495 ms.
He was intubated after being given 100 mg of Succinylcholine and 100mg of Propofol
PDMP: none
ER labs: Glucose�135, AST�168, ALT�125, normal sodium, creatinine�1.1, troponin�0.056
Labs: Fingerstick�202, Na 129, WBC 20.0, creatinine 1, proBNP 6860, troponin 0.064
Mr. Pennington was intubated and started on Levophed.
MAR: Fentanyl 50 mcg given at 12:41 today.
PMH: persistent AFib, HFrEF, HTN, IGT, NICM, BMI 30, medication nonadherence, migraine LUNDY wo aura
PSH:appendectomy, eye surgery?
SH: Lives alone, former smoker, no history excessive alcohol use
FH: premature coronary artery disease
All:NKDA
ROS: Unable to obtain
General: Sedated, intubated
Cardio: Regular rate
Mental Status: opens eyes to sternal rub, does not attend or follow requests
Cranial Nerves: Pupils are 2.5 mm, nonreactive. Negative oculocephalics, corneals, gag. RR=vent
Motor: increased motor tone in LEs
Reflexes: neg clonus at the ankles
Sensory: does not grimace or localize
Coordination: No tremors myoclonic movements
Gait: unable
Assessment and Plan:
I. Vasovagal syncope
II. Multifactorial encephalopathy (toxic, vascular)
III. Permanent A-fib
- Continue Telemetry monitoring
- Avoid cerebral hypoperfusion
- Continue aspirin 81 mg once a day for stroke prophylaxis
- MRI without emily
- Please follow-up CTA/CTP
- Please check HbA1C, LDL.
- DVT prophylaxis.
I personally reviewed all radiology and labs along with past medical records pertinent to current medical problems. Total time spent in patient care is 60 minutes.
Thank you for allowing us to participate in the care of this patient. We will continue to follow. Please do not hesitate to contact us with any questions or concerns.
Subjective/Objective
Subjective Data
Date of Service: May 24, 2025
Objective Data
Vital Signs
Temp Pulse Resp BP Pulse Ox
36.8 C 73 12 91/60 91
05/24/25 11:57 05/24/25 12:30 05/24/25 12:30 05/24/25 12:30 05/24/25 12:43
Lab Results
05/24/25 12:43
PT 16.0 Sec (11.4-14.6) H 05/23/25 20:00
INR 1.25 05/23/25 20:00
APTT 27.2 Sec (23.4-35.0) 05/23/25 20:00
Sodium 138 mmol/L (135-145) 05/24/25 03:32
Potassium 4.0 mmol/L (3.5-5.1) 05/24/25 03:32
BUN 32 mg/dl (9-20) H 05/24/25 03:32
Glucose 129 mg/dl (70-99) H 05/24/25 03:32
Calcium 8.3 mg/dl (8.4-10.2) L 05/24/25 03:32
Fmf-W-Zyvhuwznqbs Pept 6860 pg/ml 05/23/25 20:00
Patient Allergies
No Known Allergies Allergy (Verified 02/28/24 13:33)
Medications
-
Active Medications
Generic Name Dose Route Start Last Admin
Trade Name Freq PRN Reason Stop Dose Admin
Acetaminophen 325 mg 05/24/25 02:45
Acetaminophen 325 Mg Tablet PO 06/21/25 02:44
DAILYPRN PRN
mild pain
Apixaban 5 mg 05/24/25 08:00 05/24/25 09:30
Apixaban (Eliquis) 5 Mg Tablet PO 06/21/25 07:59 5 mg
BID DEMETRI Administration
Carvedilol 6.25 mg 05/24/25 02:45 05/24/25 09:31
Carvedilol 6.25 Mg Tablet PO 06/21/25 02:44 6.25 mg
BID DEMETRI Administration
Fentanyl Citrate 50 mcg 05/24/25 12:32 05/24/25 12:41
Fentanyl (50 Mcg/Ml) 100 Mcg/2 Ml Ampul IV 06/07/25 12:31 50 mcg
[id number] PRN Administration
see protocol
Protocol
Fentanyl Citrate 50 mcg 05/24/25 12:39
Fentanyl (50 Mcg/Ml) 100 Mcg/2 Ml Ampul IV 06/07/25 12:38
[id number] PRN
see protocol
Protocol
Furosemide 40 mg 05/24/25 08:00 05/24/25 09:31
Furosemide 40 Mg (10 Mg/Ml) 4 Ml Vial IV 06/21/25 07:59 40 mg
BID AT 0800,1600 DEMETRI Administration
Diltiazem HCl 125 mg in 125 mls @ 0 mls/hr 05/24/25 04:00 05/24/25 03:56
Cardizem IV 125 mls
PER PROTOCOL DEMETRI Administration
Protocol
Per Protocol
Norepinephrine Bitartrate 4 mg in 250 mls @ 0 mls/hr 05/24/25 12:45 05/24/25 12:45
Levophed IV 250 mls
PER PROTOCOL DEMETRI Administration
Protocol
Per Protocol
Propofol 1,000,000 mcg in 100 mls @ 0 mls/hr 05/24/25 12:45
Diprivan IV
PER PROTOCOL DEMETRI
Protocol
Per Protocol
Fentanyl Citrate 1,000 mcg in 100 mls @ 0 mls/hr 05/24/25 12:45
Sublimaze IV
PER PROTOCOL DEMETRI
Protocol
Per Protocol
Lisinopril 5 mg 05/24/25 08:00 05/24/25 09:31
Lisinopril 5 Mg Tablet PO 06/21/25 07:59 5 mg
DAILY DEMETRI Administration
Polyethylene Glycol 17 grams 05/25/25 08:00
Polyethylene Glycol Powder 17 Grams Packet TUBE 06/22/25 07:59
DAILY DEMETRI
Polyethylene Glycol 17 grams 05/25/25 08:00
Polyethylene Glycol Powder 17 Grams Packet TUBE 06/22/25 07:59
DAILY DEMETRI
Sodium Chloride 0 flush 05/24/25 03:00
Sodium Chloride 0.9% (Flush) Syringe IV 06/21/25 02:59
PER PROTOCOL DEMETRI
Spironolactone 25 mg 05/24/25 08:00 05/24/25 09:31
Spironolactone 25 Mg Tablet PO 06/21/25 07:59 25 mg
DAILY DEMETRI Administration
Home Medications
�Medication �Instructions �Recorded
acetaminophen 325 mg tablet 325 mg PO DAILYPRN PRN mild pain 02/28/24
(Tylenol)
apixaban 5 mg tablet (Eliquis) 5 mg PO BID Blood Clot 02/28/24
Prevention/Tx
carvedilol 6.25 mg tablet 6.25 mg PO BID Blood Pressure 02/28/24
lisinopril 5 mg tablet 5 mg PO DAILY Blood Pressure 02/28/24
spironolactone 25 mg tablet 25 mg PO DAILY Fluid 02/28/24
Retention/Swelling
Vital Signs and Labs
-
Vital Signs and Labs:
Vital Signs
Temp Pulse Resp BP Pulse Ox
36.8 C 73 12 91/60 91
05/24/25 11:57 05/24/25 12:30 05/24/25 12:30 05/24/25 12:30 05/24/25 12:43
Lab Results
05/24/25 12:43
PT 16.0 Sec (11.4-14.6) H 05/23/25 20:00
INR 1.25 05/23/25 20:00
APTT 27.2 Sec (23.4-35.0) 05/23/25 20:00
Sodium 138 mmol/L (135-145) 05/24/25 03:32
Potassium 4.0 mmol/L (3.5-5.1) 05/24/25 03:32
BUN 32 mg/dl (9-20) H 05/24/25 03:32
Glucose 129 mg/dl (70-99) H 05/24/25 03:32
Calcium 8.3 mg/dl (8.4-10.2) L 05/24/25 03:32
Xoe-V-Gecgoibuezs Pept 6860 pg/ml 05/23/25 20:00
Medications
-
Medications:
Generic Name Dose Route Start Last Admin
Trade Name Freq PRN Reason Stop Dose Admin
Acetaminophen 325 mg 05/24/25 02:45
Acetaminophen 325 Mg Tablet PO 06/21/25 02:44
DAILYPRN PRN
mild pain
Apixaban 5 mg 05/24/25 08:00 05/24/25 09:30
Apixaban (Eliquis) 5 Mg Tablet PO 06/21/25 07:59 5 mg
BID DEMETRI Administration
Carvedilol 6.25 mg 05/24/25 02:45 05/24/25 09:31
Carvedilol 6.25 Mg Tablet PO 06/21/25 02:44 6.25 mg
BID DEMETRI Administration
Fentanyl Citrate 50 mcg 05/24/25 12:32 05/24/25 12:41
Fentanyl (50 Mcg/Ml) 100 Mcg/2 Ml Ampul IV 06/07/25 12:31 50 mcg
[id number] PRN Administration
see protocol
Protocol
Fentanyl Citrate 50 mcg 05/24/25 12:39
Fentanyl (50 Mcg/Ml) 100 Mcg/2 Ml Ampul IV 06/07/25 12:38
[id number] PRN
see protocol
Protocol
Furosemide 40 mg 05/24/25 08:00 05/24/25 09:31
Furosemide 40 Mg (10 Mg/Ml) 4 Ml Vial IV 06/21/25 07:59 40 mg
BID AT 0800,1600 DEMETRI Administration
Diltiazem HCl 125 mg in 125 mls @ 0 mls/hr 05/24/25 04:00 05/24/25 03:56
Cardizem IV 125 mls
PER PROTOCOL DEMETRI Administration
Protocol
Per Protocol
Norepinephrine Bitartrate 4 mg in 250 mls @ 0 mls/hr 05/24/25 12:45 05/24/25 12:45
Levophed IV 250 mls
PER PROTOCOL DEMETRI Administration
Protocol
Per Protocol
Propofol 1,000,000 mcg in 100 mls @ 0 mls/hr 05/24/25 12:45
Diprivan IV
PER PROTOCOL DEMETRI
Protocol
Per Protocol
Fentanyl Citrate 1,000 mcg in 100 mls @ 0 mls/hr 05/24/25 12:45
Sublimaze IV
PER PROTOCOL DEMETRI
Protocol
Per Protocol
Lisinopril 5 mg 05/24/25 08:00 05/24/25 09:31
Lisinopril 5 Mg Tablet PO 06/21/25 07:59 5 mg
DAILY DEMETRI Administration
Polyethylene Glycol 17 grams 05/25/25 08:00
Polyethylene Glycol Powder 17 Grams Packet TUBE 06/22/25 07:59
DAILY DEMETRI
Polyethylene Glycol 17 grams 05/25/25 08:00
Polyethylene Glycol Powder 17 Grams Packet TUBE 06/22/25 07:59
DAILY DEMETRI
Sodium Chloride 0 flush 05/24/25 03:00
Sodium Chloride 0.9% (Flush) Syringe IV 06/21/25 02:59
PER PROTOCOL DEMETRI
Spironolactone 25 mg 05/24/25 08:00 05/24/25 09:31
Spironolactone 25 Mg Tablet PO 06/21/25 07:59 25 mg
DAILY DEMETRI Administration
Home Medications
-
Home Medications
acetaminophen 325 mg tablet (Tylenol) 325 mg PO DAILYPRN PRN mild pain 02/28/24
apixaban 5 mg tablet (Eliquis) 5 mg PO BID Blood Clot Prevention/Tx 02/28/24
carvedilol 6.25 mg tablet 6.25 mg PO BID Blood Pressure 02/28/24
lisinopril 5 mg tablet 5 mg PO DAILY Blood Pressure 02/28/24
spironolactone 25 mg tablet 25 mg PO DAILY Fluid Retention/Swelling 02/28/24
[2025-05-24 13:12] LABS: B.E. -11.6 mmol/L; O2 Saturation % 92.7 % (94-98); PCO2 39 mmHg (35-48); PO2 72 mmHg (83-108)
[2025-05-24] MEDS: DIPRIVAN 100 IV (13:13)
[2025-05-24 13:17] LABS: HCO3 15.6 mmol/L (21-28)
[2025-05-24 13:27] LABS: Troponin I 0.071 ng/ml
[2025-05-24] MEDS: SUBLIMAZE 100 IV ×2 (13:30→22:29)
[2025-05-24] MEDS: PITRESSIN 100 IV ×2 (13:33→19:57)
--- NOTE | 2025-05-24 13:40 | PTCARENOTE ---
echo done at bedside
[2025-05-24] MEDS: CALCIUM CHLORIDE 10% SYRINGE 500 MG IV (13:55)
--- NOTE | 2025-05-24 14:00 | W.PN.ANESINT ---
Anesthesia Intubation Note
- Intubation Note
Intubation Note:
Diagnosis: Cardiac Arrest
Blade: Mac 3
Tube Size: 8.0
Depth: 23 cm @lip
Side Taped: right
Drugs Used: succs- 100 mg, propofol-100mg
Grade View: 1
EtCO2 Present: yes
Atraumatic: yes
Attempts: 1
Insertion Start and Stop Time: 12:31-12:32
SaO2 Pre: 74
SaO2 Post: 97
Glidescope Used: no
Other Airway Adjustments: no
Pre-Oxygenated: yes
Portable Chest X-Ray: yes
RSI: yes
Suctioned: no
Bilateral Breath Sounds Confirmed: yes
Vent Settings:
Settings per ___Attending Physician
[2025-05-24 14:03] LABS: Glucose - Point of Care 147 mg/dl (70-99)
--- NOTE | 2025-05-24 14:22 | PTCARENOTE ---
IV team at bedside to place picc
[2025-05-24 14:29] LABS: ALT (SGPT) 274 U/L (0-50); AST (SGOT) 370 U/L (17-59); Albumin 3.2 g/dl (3.5-5.0); Alkaline Phosphatase 103 U/L (38-126); Blood Urea Nitrogen 36 mg/dl (9-20); Calcium 8.0 mg/dl (8.4-10.2); Carbon Dioxide 15 mmol/L (22-30); Chloride 108 mmol/L (98-107); Estimated Creatinine Clearance 55 ml/min; Glucose 148 mg/dl (70-99); Potassium 4.3 mmol/L (3.5-5.1); Sodium 136 mmol/L (135-145); Total Protein 5.5 g/dl (6.3-8.2); Triglycerides 99 mg/dl (10-149); eGFR 48.72
[2025-05-24] MEDS: CALCIUM GLUCONATE 100 IV (14:42)
[2025-05-24 15:41] LABS: Magnesium 2.3 mg/dl (1.6-2.3)
--- NOTE | 2025-05-24 15:55 | VATNOTE ---
Rt. Picc inserted today with tip in right atrium. TT Dr. Swain, Radiologist, recommended to retract tip 6cm's to place tip SVC. Endorsed per protocol. aluminum molder aware.
--- NOTE | 2025-05-24 17:24 | PTCARENOTE ---
Received pt after being intubated in IMU for agonal breathing with bradycardia. Pt was given epi/about 200 ml ivf and initiated on levo prior to transfer. Upon transfer, pt diaphoretic, initially minimally responsive, but coughing and
overbreathing vent. Shortly after transfer, pt woke, attempting to pull out ett/dht. Agitated requiring multiple fentanyl boluses and initiation of fentanyl and propofol gtts. Pt also continued to be hypotensive despite increasing levo, so
vasopressin added. Pt also given calcium/glucagon as charted for reversal of cardizem that had been stopped prior to intubation. BP has improved, weaning levo as charted. Otherwise please see work list.
--- NOTE | 2025-05-24 21:21 | PTCARENOTE ---
Assumed care of pt. approx 1900.
Remains intubated/sedated. See titration flowsheets.
Tolerating vent settings approp. volumes.
Vasopressors downtitrating.
ICU ASHER bedside for arterial line placement.
CT scans to be completed upon patient stability.
--- NOTE | 2025-05-24 21:55 | W.PN.UPDATE ---
Update Note
Progress Note Update
� Left Wrist Arrow 20 (01/14)�
Diagnosis:��Acute Respiratory failure
IV Line Comments: Uneventful Procedure�
Hermes's test completed pre-procedure: Yes�
A-Line Comments: Sterile technique as per standard protocol, Ultrasound guided insertion�
Functioning A-line in situ: Yes�
A-line Insertion Start Time:�2109�
A-line in at:��2129
[2025-05-24 22:06] LABS: B.E. -4.9 mmol/L; HCO3 16.7 mmol/L (21-28); O2 Saturation % 98.2 % (94-98); PCO2 23 mmHg (35-48); PO2 112 mmHg (83-108); Potassium 3.7 mMOL/L (3.5-5.1); Sodium 130 mMOL/L (136-145)
[2025-05-24 22:34] LABS: Blood Urea Nitrogen 41 mg/dl (9-20); Calcium 9.2 mg/dl (8.4-10.2); Carbon Dioxide 13 mmol/L (22-30); Chloride 106 mmol/L (98-107); Estimated Creatinine Clearance 58 ml/min; Glucose 168 mg/dl (70-99); Potassium 3.8 mmol/L (3.5-5.1); Sodium 131 mmol/L (135-145); eGFR 52.64
[2025-05-24] MEDS: SODIUM BICARBONATE 50 MEQ IV (22:56)
[2025-05-24] MEDS: VERSED 2 MG IV (22:56)
[2025-05-24] MEDS: KCL ELIXIR 20 MEQ TUBE (22:56)
--- NOTE | 2025-05-25 00:09 | PTCARENOTE ---
Addendum entered by Moreno Kyle RN 05/25/25 00:27:
Rate decreased to 16, amp bicarb given. K repleted.
Original Note:
Pt. taken to CT scan uneventfully --> returned to room.
No further change in assessment.
Vasopressor titrations made from Arterial metrics --> correlating within 10 pts. of NIBP.
[2025-05-25] MEDS: DIPRIVAN 100 IV ×3 (03:03→21:04)
[2025-05-25] MEDS: LEVOPHED 258 MG IV ×2 (03:03→22:21)
[2025-05-25] MEDS: PITRESSIN 100 IV (03:20)
[2025-05-25 03:35] LABS: B.E. -4.8 mmol/L; HCO3 17.7 mmol/L (21-28); O2 Saturation % 98.5 % (94-98); PCO2 26 mmHg (35-48); PO2 120 mmHg (83-108); Potassium 4.0 mMOL/L (3.5-5.1); Sodium 129 mMOL/L (136-145)
--- NOTE | 2025-05-25 03:39 | PTCARENOTE ---
No change in assessment.
[2025-05-25 03:40] LABS: Hematocrit 41.2 % (39.0-52.0); Hemoglobin 13.8 g/dL (13.0-18.0); Mean Corp Hgb Conc. 33.5 g/dL (33.0-37.0); Mean Corpuscular Volume 91.8 fL (80.0-94.0); Platelet Count 231 10^3/uL (130-400); Red Cell Dist. Width 16.6 % (11.5-14.5)
[2025-05-25 04:02] LABS: Blood Urea Nitrogen 41 mg/dl (9-20); Calcium 8.5 mg/dl (8.4-10.2); Carbon Dioxide 15 mmol/L (22-30); Chloride 106 mmol/L (98-107); Estimated Creatinine Clearance 67 ml/min; Glucose 145 mg/dl (70-99); Magnesium 2.1 mg/dl (1.6-2.3); Potassium 4.3 mmol/L (3.5-5.1); Sodium 132 mmol/L (135-145); eGFR > 60.00
[2025-05-25] MEDS: SODIUM BICARBONATE 50 MEQ IV (05:13)
[2025-05-25 05:40] VITALS: BMI 30.6
--- NOTE | 2025-05-25 06:59 | W.PN.INTV ---
Today's Communication / Plan
Recommendations
Daily chest x-ray, ABG
Failed sedation vacation today with heart rate in the 150s, agitation
Doubt pneumonia, continue with heart failure treatment per cardiology
Lasix currently held
Start tube feeds
Assessment
-
59-year-old male with history of nonischemic cardiomyopathy recovered in 2022 to 51%, atrial fibrillation with RVR, history of ablation in the past, noncompliant with medications, off anticoagulation, presents with worsening shortness of breath,
palpitations, increased lower extremity TJ admitted 05/23. Started on Cardizem drip, diuresis. Patient had episode of bradycardia with change in mental status, loss of consciousness 05/24. Patient did not lose pulse, did not require CPR. Cardizem
drip stopped, given IV fluids, 1 mg epinephrine with improvement in heart rate and blood pressure but patient with agonal breathing, decreased breath sounds. Decision was made to intubate, transferred to ICU 05/24
VDRF,s/p intubation, 05/24
Agonal breathing, airway protection
Mental status changes, in the setting of bradycardia
Hypotension, suspect cardiac
Atrial fibrillation with RVR
Admitted 05/23, started on Cardizem drip
History of ablation 2022
Stopped medications 2 weeks ago (Eliquis)
On amiodarone in the past, discontinued
Acute congestive heart failure
Suspect secondary to diastolic dysfunction, poorly controlled atrial fibrillation
[facility] 2022 normal coronaries
Leukocytosis
Mild transaminitis
Conditions present prior to admission
Morbid obesity
Poor dentition
Tobacco history
Family history of coronary disease/heart failure (mother)
Plan/recommendations
At this time, patient is critically ill, remains on vasopressin, norepinephrine
This morning, with sedation weaned, became tachycardic in the 150s, dyssynchronous with the ventilator
Given EF of 20%, was placed back on sedation
Moderate secretions per respiratory
Urine output 500+, creatinine decreased to 1.3
Moving forward
Continue with volume-cycled ventilation
Remains on AC 16/500/5/40%
Ppk 26, Pplat 19
Maintain PEEP of 5
We will try to wean pressors as able. Presently on vasopressin and norepinephrine
Obtain chest x-ray today
suspect heart failure, pleural effusions
Daily chest x-ray, ABG
Maintain sedation for now given tachycardia in the 150s and agitation with sedation vacation this a.m.
Defer Lasix therapy to cardiology, currently being held
Remains on norepinephrine, vasopressin. Attempt to wean pressors
Not sure whether he needs better rate control but with any sedation vacation, heart rate goes into the 150s
Echocardiogram EF 15 to 20%, dilated RV with hypokinesis, PA pressure 33. This is worse compared to 2022 when EF was 51%
Hold IV fluids
Hope to avoid persistent tachycardia in the setting
Patient did receive glucagon, calcium gluconate given possibility of Cardizem induced bradycardia yesterday
Remains on Eliquis 5 mg twice a day via Dobbhoff
Transaminitis likely from heart failure
Minimal troponin leak
Cardiology following
Creatinine increased to 1.6, now 1.3
[address] in [address]
Urine output minimal, but picking up
Hold nephrotoxic agents for now
Neurology following patient
No acute findings. However there is right vertebral artery pathology
Defer further workup to primary service
Presently, patient is moving all extremities when agitated, nodding appropriately
Dobbhoff tube in place
Will start tube feeds
I did contact patient family currently in [place]
Spoke with [id number] and sister Frances on 05/24
Reviewed with critical care nursing, respiratory care
Reviewed with primary service
TCCT 40 min
Subjective Dataa
Subjective Data
Date of Service:
Date of Service: May 25, 2025
Subjective:
Patient remains critically ill, on norepinephrine and vasopressin. Remains ventilator dependent. Patient does open eyes and follow commands, but then easily gets agitated with sedation weaned, heart rate in the 150s. Mild secretions noted
Objective Data
Data Reviewed
Vital Signs / I&O / Oxygen:
Vital Signs
Temp Pulse Resp BP Pulse Ox
98.3 F 72 16 126/79 97
05/25/25 03:26 05/25/25 06:00 05/25/25 06:00 05/24/25 21:00 05/25/25 06:00
Intake and Output
05/23/25 05/24/25 05/25/25
06:59 06:59 06:59
Intake Total 120 / 120 1677.3 / 1677.3
Output Total 100 / 100 675 / 675
Balance 20 20 1002.3 / 1002.3
SaO2 [A/C] 98
SaO2 97
Nasal Cannula flow liters per 3
minute
Physical Exam
General: Comfortable and Other (Upper extremity A-line, right upper extremity PICC)
HEENT: Normocephalic and Anicteric
Cardiovascular: S1-S2, Irregular Rhythm (Tachycardic at times), Murmur (n) and Peripheral Edema (1+)
Respiratory: Wheeze (n), Crackles (n), Rhonchi (n), Non-Labored Respirations, Stridor (n), Crepitus (n), ET Tube and Other (Decreased breath sounds)
GI: Soft, Non Distended (Obese) and Non Tender
Neurology: Awake and Lethargic (Sedated, moves extremities, nods appropriately)
Skin: Good Color (n), Cyanosis (n) and Jaundice (n)
Labs/Micro/Reports
Lab Data
05/25/25 03:26
05/25/25 03:26
Laboratory Results
05/24/25 05/24/25 05/24/25
12:43 13:03 21:56
PT 20.2 H
INR 1.70
APTT 27.8
pH 7.21 L 7.47 H
pCO2 39 23 L
pO2 72 L 112 H
HCO3 15.6 L* 16.7 L
O2 Delivery Level Not Reportable
05/25/25
03:26
PT
INR
APTT
pH 7.44
pCO2 26 L
pO2 120 H
HCO3 17.7 L
O2 Delivery Level
Microbiology
05/24/25 13:48 Endotracheal Gram Stain - Preliminary
[2025-05-25 07:05] VITALS: BP 124/89
--- NOTE | 2025-05-25 07:36 | W.PN.HOSP.TC ---
Today's Communication/Plan
-
see plan
Assessment / Plan
Assessment / Plan
Gen: NAD, AAOx3.
Eyes: EOMI, PERRLA, no scleral icterus.
Neck: supple.
CV: tachy, irreg/irreg, +S1/S2, no m/r/g.
Resp: dec BS in the bases
Abd: +BS, soft, NT, ND
Skin: No rashes. 1+ B/L LE edema R>L
Neuro: CN 2-12 intact, non-focal.
Psych: Normal mood and affect.
CXR: Interstitial pulmonary edema with small bilateral pleural effusions.
Echo:
1. Top normal left ventricular size with severe global hypokinesis, EF 15 to 20% with possible akinesis of the inferior segments
2. Thickened mitral leaflets, moderate mitral regurgitation, mitral annular calcification, and dilated left atrium
3. Aortic sclerosis without stenosis or regurgitation
4. Borderline dilated right ventricle with hypokinesis and dilated right atrium, mild tricuspid regurgitation, pulmonary artery systolic pressure 33mmHg
In June 2023, the ejection fraction was 51%. The apical septum was akinetic there is mild mitral regurgitation.
CXR 05/25/25: Progressed prominence of the central vasculature and opacification lower lung roberts concerning for pulmonary edema. Bilateral pneumonia and pleural effusions cannot be excluded. Cardiomegaly. Stable.
CT brain: No acute intracranial abnormality noted.
CTA head/neck: No evidence of acute vascular pathology. No M1 nor M2 occlusion. Right vertebral artery pathology as described above. Unclear if chronic/congenital or acute. Large bilateral pleural effusions. New. Moderate bilateral lower lobe
consolidation. This may represent pneumonia or atelectasis. New. Multilevel degenerative disc disease.
Atrial fibrillation with RVR:
-s/p LENARD/cardioversion January 2023, CV February 2023, started on Amio 01/2023
-h/o GIB due to hemorrhoids
-in the past pt did not want to have ablation
-was on a Cardizem gtt. On 05/24/25 pt developed bradycardia and hypotension while on the Cardizem drip, received 1mg epi, was intubated for airway protection. BB/ACEi/Aldactone held for hypotension.
-currently intubated/sedated (but arousable)
-cont eliquis
-as per cards, likely will start Amio gtt without bolus today
Unresponsive episode:
-very likely due to hypotension/bradycardia
-appreciate neurology
-CT brain and CTA head/neck above, no evidence of CVA or vascular occlusion
-neuro following
-check a1c and FLP
-currently intubated/sedated (but arousable). Case discussed with Dr. Gallardo today. As pt had agitation with tachycardia today he will remain intubated today.
MELANIA:
-due to hypoperfusion due to cardiogenic shock
-improving
-Non-AG met acidosis likely due to MELANIA
Acute on chronic HFrEF:
-due to Afib with RVR due to medical noncompliance
-previously had a recovered EF, now EF 15-20%
-ACEi/Aldactone/Coreg/IV Lasix have been on hold with hypotension/cardiogenic shock, currently on Levophed. Was on Neosynephrine overnight, stopped 0800 05/25/25.
-case discussed with Dr. JUSTUS Kyle, will start IV Lasix with vasopressor support
-daily wts, I/Os
-cards following
Other problems:
Hyponatremia, mild, trend
Leukocytosis, likely reactive, no evidence of infection
Mild transaminitis, likely due to congestive hepatopathy
Essential HTN: Continue lisinopril/Coreg/spironolactone
Obesity due to excess calories
FULL/Eliquis
Total critical care time spent = 41 min
Anticipated Discharge: > 48 hours
Subjective/Interval History
-
Date of Service: May 25, 2025
Patient arousable and nods his head when asked if how he is feeling.
Objective Data
-
Labs:
Laboratory Results
05/24/25 05/25/25
21:56 03:26
WBC 19.0 H
Hgb 13.8
Hct 41.2
Plt Count 231
HCO3 16.7 L 17.7 L
Sodium 131 L 132 L
Potassium 3.8 4.3
Chloride 106 106
Carbon Dioxide 13 L* 15 L
BUN 41 H 41 H
Creatinine 1.5 H 1.3
Glucose 168 H 145 H
Calcium 9.2 8.5
Vital Signs:
Vital Signs
Temp Pulse Resp BP Pulse Ox
98.3 F 72 16 126/79 97
05/25/25 03:26 05/25/25 06:00 05/25/25 06:00 05/24/25 21:00 05/25/25 06:00
I&O
05/24/25 05/25/25 05/26/25
06:59 06:59 06:59
Intake Total 120 / 120 1677.3 / 1719.9 42.6 / 42.6
Output Total 100 / 100 675 / 715 40 / 40
Balance 20 / 20 1002.3 / 1004.9 2.6 / 2.6
--- NOTE | 2025-05-25 07:39 | W.PN.NEURO.1 ---
Today's Communication / Plan
-
.
Subjective/Objective
Subjective Data
Date of Service: May 25, 2025
Neurology follow-up note.
24-hour events: Intermittently hypotensive down to 92/64, tachycardic up to 130, afebrile.
Continues to require vasopressin and fentanyl.
CTA�no LVO.
PMH: persistent AFib, HFrEF, HTN, IGT, NICM, BMI 30, medication nonadherence, migraine LUNDY wo aura
PSH:appendectomy, eye surgery?
SH: Lives alone, former smoker, no history excessive alcohol use
FH: premature coronary artery disease
All:NKDA
ROS: Unable to obtain
General: Sedated, intubated
Cardio: Regular rate
Mental Status: Awake, attends to examiner. Follows simple requests consistently. Increase processing time. No hemineglect.
Cranial Nerves: Pupils are 2.5 mm, surgical. Blink to threat bilaterally.
Motor: increased motor tone in LEs
Reflexes: neg clonus at the ankles
Sensory: Grimaces to noxious stimuli.
Coordination: No tremors myoclonic movements
Gait: unable
Assessment and Plan:
I. Multifactorial encephalopathy (toxic, vascular), clinically improved.
II. Syncope
III. Permanent A-fib
- Continue Telemetry monitoring
- Avoid cerebral hypoperfusion
- Eliquis 5 mg twice daily for stroke prophylaxis
- Will follow.
I personally reviewed all radiology and labs along with past medical records pertinent to current medical problems. Total time spent in patient care is 35 minutes.
Thank you for allowing us to participate in the care of this patient. We will continue to follow. Please do not hesitate to contact us with any questions or concerns.
Objective Data
Vital Signs
Temp Pulse Resp BP Pulse Ox
36.8 C 72 16 126/79 97
05/25/25 03:26 05/25/25 06:00 05/25/25 06:00 05/24/25 21:00 05/25/25 06:00
Lab Results
05/25/25 03:26
05/25/25 03:26
PT 20.2 Sec (11.4-14.6) H 05/24/25 12:43
INR 1.70 05/24/25 12:43
APTT 27.8 Sec (23.4-35.0) 05/24/25 12:43
Sodium 132 mmol/L (135-145) L 05/25/25 03:26
Potassium 4.3 mmol/L (3.5-5.1) 05/25/25 03:26
BUN 41 mg/dl (9-20) H 05/25/25 03:26
Glucose 145 mg/dl (70-99) H 05/25/25 03:26
Calcium 8.5 mg/dl (8.4-10.2) 05/25/25 03:26
Phosphorus 8.3 mg/dl (2.5-4.5) H 05/24/25 13:45
Wkl-W-Hgmkmqbgfcr Pept 6860 pg/ml 05/23/25 20:00
Patient Allergies
No Known Allergies Allergy (Verified 02/28/24 13:33)
Vital Signs and Labs
-
Vital Signs and Labs:
Vital Signs
Temp Pulse Resp BP Pulse Ox
37.0 C 108 16 123/63 95
05/25/25 11:06 05/25/25 10:00 05/25/25 10:00 05/25/25 11:02 05/25/25 10:37
Lab Results
05/25/25 03:26
05/25/25 03:26
PT 20.2 Sec (11.4-14.6) H 05/24/25 12:43
INR 1.70 05/24/25 12:43
APTT 27.8 Sec (23.4-35.0) 05/24/25 12:43
Sodium 132 mmol/L (135-145) L 05/25/25 03:26
Potassium 4.3 mmol/L (3.5-5.1) 05/25/25 03:26
BUN 41 mg/dl (9-20) H 05/25/25 03:26
Glucose 145 mg/dl (70-99) H 05/25/25 03:26
Calcium 8.5 mg/dl (8.4-10.2) 05/25/25 03:26
Phosphorus 8.3 mg/dl (2.5-4.5) H 05/24/25 13:45
Xit-B-Hwlnskrxhgt Pept 6860 pg/ml 05/23/25 20:00
LDL Cholesterol, Calc Cancelled 05/25/25 07:41
Medications
-
Medications:
Generic Name Dose Route Start Last Admin
Trade Name Freq PRN Reason Stop Dose Admin
Acetaminophen 325 mg 05/24/25 02:45
Acetaminophen 325 Mg Tablet PO 06/21/25 02:44
DAILYPRN PRN
mild pain
Apixaban 5 mg 05/24/25 08:00 05/25/25 07:48
Apixaban (Eliquis) 5 Mg Tablet PO 06/21/25 07:59 5 mg
BID DEMETRI Administration
Carvedilol 6.25 mg 05/24/25 02:45 05/24/25 21:54
Carvedilol 6.25 Mg Tablet PO 06/21/25 02:44 Not Given
On Hold: 05/24/25 21:50 BID DEMETRI
Fentanyl Citrate 50 mcg 05/24/25 12:32 05/25/25 08:45
Fentanyl (50 Mcg/Ml) 100 Mcg/2 Ml Ampul IV 06/07/25 12:31 50 mcg
[id number] PRN Administration
see protocol
Protocol
Fentanyl Citrate 50 mcg 05/24/25 12:39
Fentanyl (50 Mcg/Ml) 100 Mcg/2 Ml Ampul IV 06/07/25 12:38
[id number] PRN
see protocol
Protocol
Furosemide 40 mg 05/24/25 08:00 05/24/25 09:31
Furosemide 40 Mg (10 Mg/Ml) 4 Ml Vial IV 06/21/25 07:59 40 mg
On Hold: 05/24/25 15:23 BID AT 0800,1600 DEMETRI Administration
Propofol 1,000,000 mcg in 100 mls @ 0 mls/hr 05/24/25 12:45 05/25/25 03:03
Diprivan IV 100 mls
PER PROTOCOL DEMETRI Administration
Protocol
Per Protocol
Fentanyl Citrate 1,000 mcg in 100 mls @ 0 mls/hr 05/24/25 12:45 05/25/25 08:47
Sublimaze IV 100 mls
PER PROTOCOL DEMETRI Administration
Protocol
Per Protocol
Vasopressin 20 units in 100 mls @ 0 mls/hr 05/24/25 18:20 05/25/25 03:20
Pitressin IV 100 mls
PER PROTOCOL DEMETRI Administration
Protocol
Per Protocol
Norepinephrine Bitartrate 8 mg 258 mls @ 0 mls/hr 05/25/25 00:30 05/25/25 03:03
/ Sodium Chloride IV 258 mls
PER PROTOCOL DEMETRI Administration
Protocol
Per Protocol
Lisinopril 5 mg 05/24/25 08:00 05/24/25 09:31
Lisinopril 5 Mg Tablet PO 06/21/25 07:59 5 mg
On Hold: 05/24/25 15:23 DAILY DEMETRI Administration
Midazolam HCl 2 mg 05/24/25 13:23 05/24/25 22:56
Midazolam (Preservative Free) 1 Mg/Ml 2 Ml Vial IV 06/21/25 13:22 2 mg
Q2HPRN PRN Administration
agitation
Polyethylene Glycol 17 grams 05/25/25 08:00 05/25/25 07:49
Polyethylene Glycol Powder 17 Grams Packet TUBE 06/22/25 07:59 17 grams
DAILY DEMETRI Administration
Sodium Chloride 0 flush 05/24/25 03:00
Sodium Chloride 0.9% (Flush) Syringe IV 06/21/25 02:59
PER PROTOCOL DEMETRI
Spironolactone 25 mg 05/24/25 08:00 05/24/25 09:31
Spironolactone 25 Mg Tablet PO 06/21/25 07:59 25 mg
On Hold: 05/24/25 15:24 DAILY DEMETRI Administration
Home Medications
-
Home Medications
acetaminophen 325 mg tablet (Tylenol) 325 mg PO DAILYPRN PRN mild pain 02/28/24
apixaban 5 mg tablet (Eliquis) 5 mg PO BID Blood Clot Prevention/Tx 02/28/24
carvedilol 6.25 mg tablet 6.25 mg PO BID Blood Pressure 02/28/24
lisinopril 5 mg tablet 5 mg PO DAILY Blood Pressure 02/28/24
spironolactone 25 mg tablet 25 mg PO DAILY Fluid Retention/Swelling 02/28/24
[2025-05-25] MEDS: ELIQUIS 5 MG PO ×2 (07:48→21:04)
[2025-05-25] MEDS: MIRALAX 17 GRAMS TUBE (07:49)
[2025-05-25] MEDS: SUBLIMAZE 50 MCG IV ×3 (08:06→17:12)
[2025-05-25 08:15] VITALS: BP 148/88
[2025-05-25 08:17] LABS: HDL Cholesterol 29 mg/dl; LDL Cholesterol, Calculated 49 mg/dl; Very Low Density Lipoprotein 23 mg/dl (0-30)
[2025-05-25] MEDS: SUBLIMAZE 100 IV ×2 (08:47→22:19)
[2025-05-25 08:53] VITALS: BP 97/69
--- NOTE | 2025-05-25 09:38 | PTCARENOTE ---
Sister Frances was called and given update.
[2025-05-25 09:40] VITALS: BP 92/64
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
--- NOTE | 2025-05-25 11:00 | W.PN.CARDCBS ---
Today's Communication / Plan
-
IV amiodarone for rate control
Continue anticoagulation
IV Lasix
Avoid calcium blockers
Eventual transesophageal echo/cardioversion
Impression / Plan
-
PCP: Dr. Baldwin
Senior Controls Analyst: Dr Donaldson
Assessment:
AFib RVR
Acute heart failure with reduced EF, possibly tachycardia mediated
Transient cardiogenic shock in the setting of IV diltiazem, requiring pressors, calcium, glucagon
Elevated troponin
Nonischemic cardiomyopathy
HTN
Hyperglycemia
Leukocytosis
Previous cardiovascular testing:
Left heart cath 05/05/2023: Normal coronary arteries
Echo 02/06/2023: EF 41%, mild to moderate MR
Echo 06/29/2023: EF 51%
Echo 05/24/2025: EF 15 to 20%, top normal LV, possible inferior akinesis with severe global hypokinesis, moderate MR, MAC, dilated left atrium, aortic sclerosis, borderline dilated RV with hypokinesis and dilated RA, pulmonary artery pressure was 33
at the time of the study
Plan:
He remains in acute heart failure with reduced EF in the setting of atrial fibrillation, possibly with tachycardia induced cardiomyopathy.
He was transiently in cardiogenic shock yesterday with IV diltiazem requiring intubation, inotropic support/pressor support, and calcium/glucagon
Currently doing better, Levophed is down to 4 mcg/min. Off vasopressin.
Ventricular response is now rapid, he had been with a heart rate of 40, junctional and with blood pressures under 50 mmHg systolic, blood pressure now much improved.
Agree with IV Lasix.
We will start IV amiodarone for rate control.
Will need to hold off on transesophageal echo and cardioversion at the present time.
Progress Note - Senior Controls Analyst
Subjective
Date of Service: May 25, 2025:
59-year-old man who presented in 2022 with new onset atrial fibrillation and tachycardia mediated cardiomyopathy, now admitted with recurrent atrial fibrillation after running out of medication, with most recent EF in June 2023 51%. Last seen in
our office in December 2023. Following admission, patient had rapid response/code 9 with bradycardia and essentially PEA, diltiazem discontinued, intubated, placed on pressors, received calcium and glucagon for presumed calcium charlie toxicity,
now improved, still intubated pressors weaning, still in atrial fibrillation now with RVR. Plan had been for transesophageal echo and cardioversion 05/26
PMH: Nonischemic cardiomyopathy, normal coronary arteries by cardiac catheterization 2022, PAF, hypertension, former smoker, degenerative disc disease, migraines
Current meds: Apixaban 5 mg twice daily, carvedilol on hold, lisinopril on hold, spironolactone on hold, furosemide 40 mg IV twice daily on hold, MiraLAX, propofol, fentanyl, vasopressin, now stopped, norepinephrine at 4
92/64, pulse 108, respirations 16, afebrile, sats are 95%, weight is 94 kg, had been 93.1 kg yesterday and on admission was 98 kg, sedated but awake nods in response to questions appropriately, diminished breath sounds in bases, relatively
tachycardic, neck veins hard to assess, obese, edema
CTA head neck with pleural effusions, bilateral lower lobe consolidation
Chest x-ray large bilateral effusions head CT NAD
ECG junctional rhythm, low voltage,
White count 19, hemoglobin 13.8, platelets 231, INR 1.7, 7.4 03/08/120/18 on ventilator
Sodium 132 potassium 4.3, BUN and creatinine are 41 and 1.3, troponin is 0.071
ECG today: Atrial fibrillation, nonspecific ST and T wave changes, rate 115 bpm
Objective
Labs:
05/25/25 03:26
05/25/25 03:26
Labs
Hgb 13.8 g/dL (13.0-18.0) 05/25/25 03:26
Hct 41.2 % (39.0-52.0) 05/25/25 03:26
Plt Count 231 10^3/uL (130-400) 05/25/25 03:26
PT 20.2 Sec (11.4-14.6) H 05/24/25 12:43
INR 1.70 05/24/25 12:43
APTT 27.8 Sec (23.4-35.0) 05/24/25 12:43
Sodium 132 mmol/L (135-145) L 05/25/25 03:26
Potassium 4.3 mmol/L (3.5-5.1) 05/25/25 03:26
BUN 41 mg/dl (9-20) H 05/25/25 03:26
Creatinine 1.3 mg/dL (0.7-1.3) 05/25/25 03:26
Glucose 145 mg/dl (70-99) H 05/25/25 03:26
Troponins
05/23/25 05/24/25 05/24/25
20:00 03:32 12:43
Troponin I 0.056 H* 0.064 H* 0.071 H*
Vital Signs and I&O:
Vital Signs
Temp Pulse Resp BP Pulse Ox
36.5 C 108 16 92/64 95
05/25/25 07:00 05/25/25 10:00 05/25/25 10:00 05/25/25 09:40 05/25/25 10:37
Vital Signs
Temp Pulse Resp BP Pulse Ox
36.5 C 108 16 92/64 95
05/25/25 07:00 05/25/25 10:00 05/25/25 10:00 05/25/25 09:40 05/25/25 10:37
Intake & Output
05/23/25 05/24/25 05/25/25 05/26/25
07:59 07:59 07:59 07:59
Intake Total 120 / 120 1719.9 / 1891.8 222.4 / 222.4
Output Total 100 / 100 715 / 760 130 / 130
Balance 20 20 1004.9 / 1131.8 92.4 / 92.4
Physical Exam
Physical Exam
See above
[2025-05-25] MEDS: LASIX 40 MG IV ×2 (11:02→18:03)
[2025-05-25 11:07] VITALS: BP 113/75
[2025-05-25 12:00] LABS: Glycohemoglobin (HgbA1c) 5.6 % (4.0-5.6)
[2025-05-25] MEDS: CORDARONE 518 MG IV (13:40)
--- NOTE | 2025-05-25 14:19 | PTCARENOTE ---
Systems reviewed. No new changes. Pt easily arouses. Denies c/o cp/sob/nausea. Shrugs when asked if he is comfortable. Resting easily when undisturbed. Otherwise see work list
[2025-05-25 16:46] LABS: Calcium 8.2 mg/dl (8.4-10.2); Magnesium 1.9 mg/dl (1.6-2.3); Potassium 3.6 mmol/L (3.5-5.1)
[2025-05-25 17:58] VITALS: BP 87/60
[2025-05-25] MEDS: MAGNESIUM SULFATE 100 IV (18:02)
[2025-05-25] MEDS: KCL 270 MEQ IV (18:02)
--- NOTE | 2025-05-25 20:02 | PTCARENOTE ---
Addendum entered by Moreno Kyle RN 05/25/25 22:24:
RT/ICU ASHER notified discussed switching back to CMV --> switched back to CMV /.
No further changes in assessment.
Original Note:
Assumed care of pt. approx 1900.
Remains intubated and sedated. Tolerating ASV mode at this time.
Pressors weaned down and reviewed with day team.
See assessment flowsheet for details.
--- NOTE | 2025-05-25 23:47 | PTCARENOTE ---
No further change in assessment.
[2025-05-26] MEDS: DIPRIVAN 100 IV ×4 (00:45→18:41)
[2025-05-26 03:18] LABS: B.E. 3.7 mmol/L; HCO3 26.1 mmol/L (21-28); O2 Saturation % 95.9 % (94-98); PCO2 32 mmHg (35-48); PO2 72 mmHg (83-108)
[2025-05-26 03:34] LABS: Hematocrit 40.0 % (39.0-52.0); Hemoglobin 13.2 g/dL (13.0-18.0); Mean Corp Hgb Conc. 33.0 g/dL (33.0-37.0); Mean Corpuscular Volume 92.8 fL (80.0-94.0); Platelet Count 194 10^3/uL (130-400); Red Cell Dist. Width 17.4 % (11.5-14.5)
[2025-05-26 03:59] LABS: Blood Urea Nitrogen 30 mg/dl (9-20); Calcium 7.5 mg/dl (8.4-10.2); Carbon Dioxide 22 mmol/L (22-30); Chloride 108 mmol/L (98-107); Estimated Creatinine Clearance 80 ml/min; Glucose 121 mg/dl (70-99); Potassium 3.7 mmol/L (3.5-5.1); Sodium 135 mmol/L (135-145); eGFR > 60.00
--- NOTE | 2025-05-26 05:18 | PTCARENOTE ---
Vasopressors titrated off.
No further change in assessment.
[2025-05-26 06:00] VITALS: BMI 30.5
--- NOTE | 2025-05-26 07:15 | PTCARENOTE ---
Pt rec'd from night RN, intubated and sedated with Fent/Prop/ and Amiodarone gtts infusing via right DL PICC. RASS -3 with minimal eyelid fluttering to tactile stim. Per protocol, fent and prop turned off for SAT at 08:45 and 09:05. Pt with syed
cath draining yellow urine, left radial art line leveled and zeroed, tolerating current vent settings of 16/500/5/40%, right nare DHT with Jevity 1.5 at ordered rate. Pt in afib on tele as prior, HR in 120-130 range at rest. Pt able to follow
commands during initial phase of SAT, wiggling toes and squeezing hands. Pt turned and repositioned, CHG bath and syed care provided, plan was discussed with Dr. Kyle at the bedside. Safe environment maintained.
--- NOTE | 2025-05-26 08:11 | W.PN.CARDCBS ---
Today's Communication / Plan
-
Convert to oral amiodarone
Add digoxin for rate control
Continue furosemide 40 mg IV twice daily
Continue Eliquis
Impression / Plan
-
PCP: Dr. Baldwin
Inventory Control Planner: Dr Donaldson
Assessment:
AFib RVR
Acute heart failure with reduced EF, possibly tachycardia mediated
Transient cardiogenic shock in the setting of IV diltiazem, requiring pressors, calcium, glucagon
Elevated troponin
Nonischemic cardiomyopathy
HTN
Hyperglycemia
Leukocytosis
Previous cardiovascular testing:
Left heart cath 05/05/2023: Normal coronary arteries
Echo 02/06/2023: EF 41%, mild to moderate MR
Echo 06/29/2023: EF 51%
Echo 05/24/2025: EF 15 to 20%, top normal LV, possible inferior akinesis with severe global hypokinesis, moderate MR, MAC, dilated left atrium, aortic sclerosis, borderline dilated RV with hypokinesis and dilated RA, pulmonary artery pressure was 33
at the time of the study
Plan:
He remains critically ill but overall is improving.
Regarding heart failure he is diuresing, continue IV furosemide 40 mg twice daily
He remains with rapid ventricular response to atrial fibrillation on IV amiodarone for rate control. Avoid calcium blockers. Carvedilol on hold at present related to hypotension. Will add digoxin. Will need to follow level closely given that
patient is on amiodarone.
Continue Eliquis.
Switch amiodarone to oral.
Eventual plan will still be for transesophageal echo and cardioversion.
If blood pressure becomes an issue, Erick-Synephrine may be a better choice than Levophed given A-fib with RVR, though afterload increase.
Progress Note - Inventory Control Planner
Subjective
Date of Service: May 26, 2025:
59-year-old man who presented in 2022 with new onset atrial fibrillation and tachycardia mediated cardiomyopathy, now admitted with recurrent atrial fibrillation after running out of medication, with most recent EF in June 2023 51%. Last seen in
our office in December 2023, at which time he was in sinus rhythm and doing well with improved EF. Thereafter, lost to follow-up but presented on May 24 with heart failure and AF and RVR. He was treated with diltiazem and diuretics. 18 hours
following admission, patient had rapid response/code 9 with bradycardia and essentially PEA, profound hypotension, diltiazem discontinued, intubated, placed on pressors, received calcium and glucagon for presumed calcium charlie toxicity, now
improved, still intubated pressors weaning, still in atrial fibrillation now with RVR. Plan had been for transesophageal echo and cardioversion 05/26
PMH: Nonischemic cardiomyopathy, normal coronary arteries by cardiac catheterization 2022, PAF, hypertension, former smoker, degenerative disc disease, migraines
Current meds: Apixaban 5 mg twice daily, carvedilol 6.25 twice daily, lisinopril 5 mg a day, spironolactone 25 mg a day, furosemide 40 mg IV twice daily, MiraLAX, propofol, IV amiodarone
Systolic blood pressure around 100 pulse 120, respirations 16, afebrile, intake and output -3.2 L, weight is 93.7 kg, if accurate unchanged. Sedated, intubated, lungs with scattered wheezes decreased in bases, JVD not obviously elevated,Soft
systolic murmur, tachycardic abdomen obese, without much clubbing cyanosis or edema
Chest x-ray today, cardiomegaly, effusions, mild vascular congestion, endotracheal tube in place
White count is 14.4, platelets are 194, potassium is 3.7, bicarb is 22, BUN/creatinine are 30 and 1.1
ABG 7.52, 32, 72, bicarb is 26.1, sats are 96%'s
Objective
Labs:
05/26/25 03:04
05/26/25 03:04
Labs
Hgb 13.2 g/dL (13.0-18.0) 05/26/25 03:04
Hct 40.0 % (39.0-52.0) 05/26/25 03:04
Plt Count 194 10^3/uL (130-400) 05/26/25 03:04
PT 20.2 Sec (11.4-14.6) H 05/24/25 12:43
INR 1.70 05/24/25 12:43
APTT 27.8 Sec (23.4-35.0) 05/24/25 12:43
Sodium 135 mmol/L (135-145) 05/26/25 03:04
Potassium 3.7 mmol/L (3.5-5.1) 05/26/25 03:04
BUN 30 mg/dl (9-20) H 05/26/25 03:04
Creatinine 1.1 mg/dL (0.7-1.3) 05/26/25 03:04
Glucose 121 mg/dl (70-99) H 05/26/25 03:04
Troponins
05/23/25 05/24/25 05/24/25
20:00 03:32 12:43
Troponin I 0.056 H* 0.064 H* 0.071 H*
Vital Signs and I&O:
Vital Signs
Temp Pulse Resp BP Pulse Ox
37.0 C 120 16 87/60 93
05/26/25 07:14 05/26/25 06:15 05/26/25 06:15 05/25/25 17:58 05/26/25 08:00
Vital Signs
Temp Pulse Resp BP Pulse Ox
37.0 C 120 16 87/60 93
05/26/25 07:14 05/26/25 06:15 05/26/25 06:15 05/25/25 17:58 05/26/25 08:00
Intake & Output
05/24/25 05/25/25 05/26/25 05/27/25
07:59 07:59 07:59 07:59
Intake Total 120 / 120 1719.9 / 1891.8 1235.9 / 1235.9
Output Total 100 / 715 / 760 4255 / 4255
Balance 1004.9 / 1131.8 -3019.1 / -3019.1
Physical Exam
Physical Exam
See above
[2025-05-26] MEDS: LASIX 40 MG IV ×2 (08:47→16:29)
[2025-05-26] MEDS: MIRALAX 17 GRAMS TUBE (08:47)
[2025-05-26] MEDS: ELIQUIS 5 MG PO ×2 (08:47→20:17)
--- NOTE | 2025-05-26 09:31 | PTCARENOTE ---
Fent and Prop weaned off for RASS -3, pt now opening eyes and following commands, able to CAI.
[2025-05-26] MEDS: SUBLIMAZE 50 MCG IV ×4 (09:49→22:10)
--- NOTE | 2025-05-26 09:58 | PTCARENOTE ---
Pt awakened and coughing / gagging, tachy to 180s, fighting ventilator, reaching for tube, Fent bolus administered, Prop gtt resumed -See MAR. Frequent suction for whitish secrections via oral and endotracheal tube required. No response to lasix
yet. Safe environment maintained. Restraints tightened.
[2025-05-26 10:06] VITALS: BP 94/59
[2025-05-26] MEDS: KCL ELIXIR 40 MEQ TUBE (10:57)
[2025-05-26] MEDS: LANOXIN 250 MCG IV (10:57)
[2025-05-26 11:33] LABS: Magnesium 2.0 mg/dl (1.6-2.3)
[2025-05-26 12:09] VITALS: BMI 30.5
--- NOTE | 2025-05-26 12:28 | PTCARENOTE ---
Pt's was leaking urine around syed cath and saturated underpad, foely repositioned and flushed, now with brisk return clear yellow urine. See worklist for I+O.
--- NOTE | 2025-05-26 13:36 | W.PN.HOSP.TC ---
Today's Communication/Plan
-
amiodarone switched to PO
digoxin
iv diuresis
vent weaning/Trial SBT and extubation once Afib under control
Assessment / Plan
Assessment / Plan
Gen: NAD, AAOx3.
Eyes: EOMI, PERRLA, no scleral icterus.
Neck: supple.
CV: tachy, irreg/irreg, +S1/S2, no m/r/g.
Resp: dec BS in the bases
Abd: +BS, soft, NT, ND
Skin: No rashes. 1+ B/L LE edema R>L
Neuro: CN 2-12 intact, non-focal.
Psych: Normal mood and affect.
CXR: Interstitial pulmonary edema with small bilateral pleural effusions.
Echo:
1. Top normal left ventricular size with severe global hypokinesis, EF 15 to 20% with possible akinesis of the inferior segments
2. Thickened mitral leaflets, moderate mitral regurgitation, mitral annular calcification, and dilated left atrium
3. Aortic sclerosis without stenosis or regurgitation
4. Borderline dilated right ventricle with hypokinesis and dilated right atrium, mild tricuspid regurgitation, pulmonary artery systolic pressure 33mmHg
In June 2023, the ejection fraction was 51%. The apical septum was akinetic there is mild mitral regurgitation.
CXR 05/25/25: Progressed prominence of the central vasculature and opacification lower lung roberts concerning for pulmonary edema. Bilateral pneumonia and pleural effusions cannot be excluded. Cardiomegaly. Stable.
CT brain: No acute intracranial abnormality noted.
CTA head/neck: No evidence of acute vascular pathology. No M1 nor M2 occlusion. Right vertebral artery pathology as described above. Unclear if chronic/congenital or acute. Large bilateral pleural effusions. New. Moderate bilateral lower lobe
consolidation. This may represent pneumonia or atelectasis. New. Multilevel degenerative disc disease.
Ventilator dependent respiratory failure
� In setting of unresponsiveness, hypotension/bradycardia
� Was holding off on extubation until rates of atrial fibrillation under control
� Trial SBT once hemodynamically stable, will hold extubation within 24 to 48 hours
�CT imaging with no evidence of severe vascular occlusion
� Neurology was on board
� Continue propofol, fentanyl for now
Atrial fibrillation with RVR:
-s/p LENARD/cardioversion January 2023, CV February 2023, started on Amio 01/2023
-h/o GIB due to hemorrhoids
-in the past pt did not want to have ablation
-was on a Cardizem gtt. On 05/24/25 pt developed bradycardia and hypotension while on the Cardizem drip, received 1mg epi, was intubated for airway protection. BB/ACEi/Aldactone held for hypotension.
-Mechanically ventilated, Goal RASS 0 to -2 (but arousable)
-cont eliquis
�Amiodarone drip, switch to oral
� Add digoxin
Acute on chronic HFrEF:
-due to Afib with RVR + medical noncompliance
-previously had a recovered EF, now EF 15-20%
-ACEi/Aldactone/Coreg/IV Lasix have been on hold with hypotension/cardiogenic shock
-Now off presors
-re-initiate IV lasix
-daily wts, I/Os
-cards following
#Respiratory Alkalosis
-likely related to agitation on the vent
-propofol as needed
-vent management as per craft center director
MELANIA, likely pre-renal, cardiorenal
-due to hypoperfusion due to cardiogenic shock
-improving
-improving
Other problems:
Hyponatremia, likely SIADH, mild, trend with diuresis
Leukocytosis, likely reactive, no evidence of infection
Mild transaminitis, likely due to congestive hepatopathy
Essential HTN: Continue spironolactone; holding lisinopril due to MELANIA; Holding coreg with afib management and BP control
Obesity due to excess calories
FULL/Eliquis
Total critical care time spent = 45 min
Anticipated Discharge: > 48 hours
Subjective/Interval History
-
Date of Service: May 26, 2025
Remains mechanically ventilated, A-fib with RVR
Objective Data
-
Labs:
Laboratory Results
05/26/25
03:04
WBC 14.4 H
Hgb 13.2
Hct 40.0
Plt Count 194
HCO3 26.1
Sodium 135
Potassium 3.7
Chloride 108 H
Carbon Dioxide 22
BUN 30 H
Creatinine 1.1
Glucose 121 H
Calcium 7.5 L
Vital Signs:
Vital Signs
Temp Pulse Resp BP Pulse Ox
100.2 F 124 21 107/55 94
05/26/25 11:07 05/26/25 12:00 05/26/25 12:00 05/26/25 08:47 05/26/25 12:00
I&O
05/25/25 05/26/25 05/27/25
06:59 06:59 06:59
Intake Total 1677.3 / 1719.9 1198.2 / 1278.5 745.4 / 745.4
Output Total 675 / 715 4295 / 4295 746 / 746
Balance 1002.3 / 1004.9 -3096.8 / -3016.5 -0.6 / -0.6
Review of Systems
-
History Source: Patient
All other systems: Not reviewed unless documented
Data Reviewed
-
Diagnostic Radiology: Report Reviewed by me
Labs: Labs Reviewed by me
--- NOTE | 2025-05-26 14:10 | W.PN.INTV ---
Today's Communication / Plan
Recommendations
- Chest x-ray and ABG in a.m.
- Change vent settings to 450/16/40%/5
- Avoid SAT for today due to RVR. Reattempt SAT/SBT in a.m.
Assessment
-
59-year-old male with history of nonischemic cardiomyopathy recovered in 2022 to 51%, atrial fibrillation with RVR, history of ablation in the past, noncompliant with medications, off anticoagulation, presents with worsening shortness of breath,
palpitations, increased lower extremity TJ admitted 05/23. Started on Cardizem drip, diuresis. Patient had episode of bradycardia with change in mental status, loss of consciousness 05/24. Patient did not lose pulse, did not require CPR. Cardizem
drip stopped, given IV fluids, 1 mg epinephrine with improvement in heart rate and blood pressure but patient with agonal breathing, decreased breath sounds. Decision was made to intubate, transferred to ICU 05/24
Conditions present prior to admission
Morbid obesity
Poor dentition
Tobacco history
Family history of coronary disease/heart failure (mother)
05/26 Overview: Patient currently intubated, mechanically ventilated, 500/16/40%/5. ABG this morning 7.52, 32, 72.
Currently amiodarone infusion also patient is on propofol and fentanyl infusion. Tube feed ongoing. Fluid balance -2.7 L. SAT was attempted, patient developed atrial fibrillation with rapid ventricular rate into 140s to 150s.
Assessment and plan:
#1. Acute respiratory failure with altered mental status, bradycardia and agonal breathing
- Patient emergently intubated and mechanically ventilated on 05/24
- SAT attempt 05/26, patient developed significant rapid ventricular rate, SVT aborted and sedation resumed
- Currently sedated with propofol and fentanyl
- Continue tube feeding, on bowel regimen
#2. Atrial fibrillation with rapid ventricular response
- Admitted to hospital 05/23, had been on Cardizem infusion which has been discontinued due to bradycardia and respiratory failure. Patient required calcium and glucagon in the setting of Cardizem related bradycardia
- Reportedly stopped taking medication as outpatient
- Currently on Eliquis 5 mg p.o. twice daily, amiodarone infusion, digoxin started per cardiology service
#3. Brief cardiogenic shock in the setting of bradycardia after IV Cardizem
- Patient briefly required pressors, received calcium and glucagon with resolution of bradycardia
- Currently patient is tachycardiac with rapid ventricular rate with underlying atrial fibrillation and is on multiple farooq blocking agents
- Cardiology service on case
#4. Acute heart failure with reduced ejection fraction, suspect tachycardia mediated cardiomyopathy
- Continue Lasix 40 mg twice daily, 2.7 L negative fluid balance over last 24 hours
- Continue spironolactone and potassium as prescribed
- Magnesium 2.0 this morning, potassium slightly low at 3.7
- MELANIA improving with diuresis, suggestive of cardiorenal syndrome
#5. MELANIA
- Improving with diuresis, suggestive of cardiorenal syndrome
- Continue Lasix and Aldactone, monitor renal function closely
#6. Nonischemic cardiomyopathy
- Left heart cath in 2022 without significant obstructive coronary artery disease
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
#7. Mild respiratory alkalosis
- Decrease tidal volume to 450 mL, updated vent settings 450/16/40%/5
- Follow-up chest x-ray and ABG in a.m.
#8. Pulmonary hypertension
- Pulmonary artery systolic pressure around 33 with borderline dilated RV with hypokinesis with dilated right atrium on echo.
- Suspect group 2 related to left heart failure and also dilated cardiomyopathy.
- Continue to optimize volume, continue supplemental oxygen as needed to keep saturations above 90%
- Further workup as outpatient may include sleep study, pulmonary function testing etc.
DVT prophylaxis, currently anticoagulated with Eliquis p.o. twice daily
Add GI prophylaxis with IV PPI
Critical Care time 45 mins -- The patient is admitted for acute critical illness for the treatment of vital organ failure and/or prevention of further life-threatening conditions. Total care includes time spent in review of history, physical exam,
medications, hemodynamic/ventilator parameters, laboratory data, imaging and discussion with house staff, pharmacy, respiratory therapy, member service specialist, and nursing.
Data:
ECHO 05/2025: 1. Top normal left ventricular size with severe global hypokinesis, EF 15 to
20% with possible akinesis of the inferior segments
2. Thickened mitral leaflets, moderate mitral regurgitation, mitral annular
calcification, and dilated left atrium
3. Aortic sclerosis without stenosis or regurgitation
4. Borderline dilated right ventricle with hypokinesis and dilated right
atrium, mild tricuspid regurgitation, pulmonary artery systolic pressure 33
mmHg
Subjective Dataa
Subjective Data
Date of Service:
Date of Service: May 26, 2025
Subjective:
Patient awake, lightly sedated, intubated and mechanically ventilated
Review of Systems
General: Unobtainable - Sedation
Objective Data
Data Reviewed
Vital Signs / I&O / Oxygen:
Vital Signs
Temp Pulse Resp BP Pulse Ox
100.2 F 124 21 107/55 94
05/26/25 11:07 05/26/25 12:00 05/26/25 12:00 05/26/25 08:47 05/26/25 12:00
Intake and Output
05/25/25 05/26/25 05/27/25
06:59 06:59 06:59
Intake Total 1677.3 / 1719.9 1198.2 / 1278.5 817.6 / 817.6
Output Total 675 / 715 4295 / 4295 1026 / 1026
Balance 1002.3 / 1004.9 -3096.8 / -3016.5 -208.4 / -208.4
SaO2 [A/C] 94
SaO2 95
Nasal Cannula flow liters per 3
minute
Physical Exam
General: Comfortable and Other
HEENT: Normocephalic and Anicteric
Cardiovascular: S1-S2, Irregular Rhythm (A-fib with RVR on monitor), Murmur (n) and Peripheral Edema (Trace)
Respiratory: Wheeze (n), Crackles (n), Rhonchi (n), Non-Labored Respirations, Stridor (n), Crepitus (n), ET Tube and Other (Decreased breath sounds)
GI: Soft, Non Distended (Obese) and Non Tender
Neurology: Other (Lightly sedated, wakes up with little stimulation)
Skin: Good Color (n), Cyanosis (n) and Jaundice (n)
Labs/Micro/Reports
Lab Data
05/26/25 03:04
05/26/25 03:04
Laboratory Results
05/26/25
03:04
pH 7.52 H
pCO2 32 L
pO2 72 L
HCO3 26.1
O2 Delivery Level
Microbiology
05/24/25 13:48 Endotracheal Respiratory Culture - Final
Usual Respiratory Viviane
05/24/25 13:48 Endotracheal Gram Stain - Final
--- NOTE | 2025-05-26 14:16 | PN.CDI ---
CDI
- -
CDI:
Physician Documentation Request
Admit Date: 05/23/25 23:02
Dear Doctor Cori,
Clinical Indicators:
Patient admitted with atrial fibrillation w/RVR and acute on chronic HFrEF;
05/26 PN, 'Ventilator dependent respiratory failure'
ABG:
05/24/25
13:03
pH 7.21 L
pCO2 39
pO2 72 L
HCO3 15.6 L*
Please clarify the type and acuity of respiratory failure:
Acute hypoxic respiratory failure
Other, please specify
Use of terms such as suspected, likely, concern for, or probable (associated with a specific diagnosis that is being evaluated, monitored, or treated as if it exists) are acceptable and can be coded in the inpatient setting, when documented at the
time of discharge.
Thank you,
DANIEL Lopez RN
CDI Specialist
available via tiger text
Please use your independent medical judgment in providing your response.
[2025-05-26] MEDS: PROTONIX IV 40 MG IV (14:37)
--- NOTE | 2025-05-26 14:37 | PN.CDI ---
CDI
- -
CDI:
Physician Documentation Request
Admit Date: 05/23/25 23:02
Dear Doctor Cori,
Clinical Indicators:
Patient admitted with atrial fibrillation w/RVR and acute on chronic HFrEF.
05/24 Cardiology consult, 'suspect nonmyocardial troponin elevation'
Troponin trend:
05/23/25 05/24/25 05/24/25
20:00 03:32 12:43
Troponin I 0.056 H* 0.064 H* 0.071 H*
Based on the above, could you clarify in the progress notes, the appropriate diagnosis, if significant, that supports the above abnormalities and additional evaluation, monitoring and/or treatment rendered:
Non ischemic myocardial injury
Elevated troponin only
Other, please specify
Use of terms such as suspected, likely, concern for, or probable (associated with a specific diagnosis that is being evaluated, monitored, or treated as if it exists) are acceptable and can be coded in the inpatient setting, when documented at the
time of discharge.
Thank you,
DANIEL Lopez RN
CDI Specialist
available via tiger text
Please use your independent medical judgment in providing your response.
[2025-05-26] MEDS: LANOXIN 125 MCG TUBE (14:38)
--- NOTE | 2025-05-26 14:40 | PTCARENOTE ---
Addendum entered by Andrew Tobar RN 05/26/25 14:58:
Amio gtt dc'd per orders, PO given via NGT. Pt continues with adequate urine output via syed.
Original Note:
Tube feeds adjusted to 30/hr as per orders, new goal rate 40/hr. with Prosource added.
[2025-05-26] MEDS: NSS (PRESERVATIVE FREE) 10 ML IV (14:41)
[2025-05-26] MEDS: PACERONE 400 MG TUBE ×2 (16:30→22:14)
--- NOTE | 2025-05-26 16:31 | CM ---
Remains intubated, IV/Meds. Discharge POC: TBD with medical progression.
--- NOTE | 2025-05-26 16:38 | PTCARENOTE ---
Pt reassessed, PRN Fent bolus given for agitation intermittently, see worklist. Amio gtt dc'd per order, po given-see JAN. Digoxin also administered per orders, see JAN. HR improving, currently 94 in afib. Sister Frances at bedside to visit, update
provided, questions answered. Safe environment continues.
[2025-05-26 16:49] VITALS: BP 108/73
[2025-05-26 19:25] VITALS: BP 92/50
[2025-05-26 20:30] VITALS: BP 98/66
--- NOTE | 2025-05-26 21:17 | PTCARENOTE ---
Received pt from previous RN. Pt is drowsy/lethargic, restless. B/l wrist restraints in place. Afib with PVCs on the monitor. ETT #8 @ 22 cm, AC 16/450/40%/5, O2 sat 92%, lungs coarse, productive moist cough. Right nare dobhoff @ 70 cm, Jevity 1.5
at goal 40 ml/hr with 25 ml water flush. Ace in place. SCDs in place. Prop at 30 mcgs (see worklist). Mouth care provided. Left radial ramila zeroed and transduced. Safe environment maintained.
[2025-05-26] MEDS: LEVOPHED 250 IV (23:33)
--- NOTE | 2025-05-26 23:35 | PTCARENOTE ---
Systems reviewed. ICU RIVET [employer]ATER notified, pts MAP in the 50s-60s, Levo gtt started @ 2 mcgs (see worklist).
[2025-05-27] VITALS: BP 111/69
[2025-05-27] MEDS: DIPRIVAN 100 IV ×5 (00:13→23:46)
[2025-05-27 04:00] VITALS: BP 108/69
[2025-05-27 04:19] LABS: B.E. 7.0 mmol/L; HCO3 30.2 mmol/L (21-28); O2 Saturation % 96.6 % (94-98); PCO2 37 mmHg (35-48); PO2 74 mmHg (83-108)
[2025-05-27 04:22] VITALS: BMI 29.2
--- NOTE | 2025-05-27 04:26 | PTCARENOTE ---
Systems reviewed, no new changes in assessment. Levo gtt titrated (see worklist). Prop gtt maintained. AM labs provided. Safe environment maintained.
[2025-05-27 04:31] LABS: Hematocrit 39.1 % (39.0-52.0); Hemoglobin 13.0 g/dL (13.0-18.0); Mean Corp Hgb Conc. 33.2 g/dL (33.0-37.0); Mean Corpuscular Volume 93.8 fL (80.0-94.0); Platelet Count 159 10^3/uL (130-400); Red Cell Dist. Width 17.0 % (11.5-14.5)
[2025-05-27 04:55] LABS: ALT (SGPT) 193 U/L (0-50); AST (SGOT) 52 U/L (17-59); Albumin 2.8 g/dl (3.5-5.0); Alkaline Phosphatase 98 U/L (38-126); Blood Urea Nitrogen 23 mg/dl (9-20); Calcium 7.5 mg/dl (8.4-10.2); Carbon Dioxide 30 mmol/L (22-30); Chloride 104 mmol/L (98-107); Estimated Creatinine Clearance 86 ml/min; Glucose 138 mg/dl (70-99); Potassium 3.8 mmol/L (3.5-5.1); Sodium 135 mmol/L (135-145); Total Protein 5.0 g/dl (6.3-8.2); Triglycerides 99 mg/dl (10-149); eGFR > 60.00
[2025-05-27] MEDS: KCL ELIXIR 20 MEQ TUBE ×2 (05:11→07:25)
[2025-05-27] MEDS: CALCIUM GLUCONATE 130 MG IV (05:45)
--- NOTE | 2025-05-27 07:14 | PTCARENOTE ---
Assumed care 0700.
Remains intubated/sedated RASS -1. Awaiting rounds w. Front Office Associate to discuss SAT/SBT plan.
Norepi titrated off.
[2025-05-27] MEDS: ALDACTONE 25 MG TUBE (07:24)
[2025-05-27] MEDS: ELIQUIS 5 MG PO ×2 (07:24→19:36)
[2025-05-27] MEDS: PACERONE 400 MG TUBE ×3 (07:24→22:42)
[2025-05-27] MEDS: PROTONIX IV 40 MG IV (07:25)
[2025-05-27] MEDS: MIRALAX 17 GRAMS TUBE (07:25)
[2025-05-27] MEDS: LASIX 40 MG IV ×2 (07:25→17:13)
[2025-05-27] MEDS: NSS (PRESERVATIVE FREE) 10 ML IV (07:25)
[2025-05-27 08:00] VITALS: BP 117/71
--- NOTE | 2025-05-27 10:19 | W.PN.CARDCBS ---
Today's Communication / Plan
-
Heart rates remain rapid in A-fib�continue amiodarone and digoxin for rate control
Levophed may be further driving tachycardia, consider transition to phenylephrine or vasopressin
Continue IV Lasix
Impression / Plan
-
PCP: Dr. Baldwin
Shelving Supervisor: Dr Donaldson
Assessment:
AFib RVR
Acute heart failure with reduced EF, possibly tachycardia mediated
Transient cardiogenic shock in the setting of IV diltiazem, requiring pressors, calcium, glucagon
Elevated troponin
Nonischemic cardiomyopathy
HTN
Hyperglycemia
Leukocytosis
Previous cardiovascular testing:
Left heart cath 05/05/2023: Normal coronary arteries
Echo 02/06/2023: EF 41%, mild to moderate MR
Echo 06/29/2023: EF 51%
Echo 05/24/2025: EF 15 to 20%, top normal LV, possible inferior akinesis with severe global hypokinesis, moderate MR, MAC, dilated left atrium, aortic sclerosis, borderline dilated RV with hypokinesis and dilated RA, pulmonary artery pressure was 33
at the time of the study
Plan:
Critically ill, intubated in the MICU on levophed
He remains with rapid ventricular response to atrial fibrillation
Cont PO amiodarone and digoxin for rate control
Avoid calcium blockers given systolic dysfunction
Carvedilol on hold at present related to hypotension
Levophed is likely driving up heart rate, would consider phenylephrine or vasopressin as alternatives
If rates remain difficult to control will need to consider direct-current cardioversion when optimized from a volume standpoint
Continue Eliquis
Regarding acute heart failure with severely reduced left ventricular ejection fraction, he is diuresing and Cr remains stable
Continue IV furosemide 40 mg twice daily
Wean ventilatory support as able
Hypotension limits GDMT at this time
Low-level troponin elevation noted
Nonspecific ST/T wave changes on ECG are similar to prior tracings
Left heart catheterization in 2022 with normal coronaries
Overall suspect nonischemic myocardial injury troponin elevation due to acute heart failure and A-fib RVR
CC time - 33 minutes
Progress Note - Shelving Supervisor
Subjective
Date of Service: May 27, 2025
No acute overnight events. Remains intubated and sedated in the medical ICU.
Objective
Labs:
05/27/25 04:11
05/27/25 04:11
Labs
Hgb 13.0 g/dL (13.0-18.0) 05/27/25 04:11
Hct 39.1 % (39.0-52.0) 05/27/25 04:11
Plt Count 159 10^3/uL (130-400) 05/27/25 04:11
PT 20.2 Sec (11.4-14.6) H 05/24/25 12:43
INR 1.70 05/24/25 12:43
APTT 27.8 Sec (23.4-35.0) 05/24/25 12:43
Sodium 135 mmol/L (135-145) 05/27/25 04:11
Potassium 3.8 mmol/L (3.5-5.1) 05/27/25 04:11
BUN 23 mg/dl (9-20) H 05/27/25 04:11
Creatinine 0.9 mg/dL (0.7-1.3) 05/27/25 04:11
Glucose 138 mg/dl (70-99) H 05/27/25 04:11
Troponins
05/24/25
12:43
Troponin I 0.071 H*
Vital Signs and I&O:
Vital Signs
Temp Pulse Resp BP Pulse Ox
100.4 F H 121 20 117/71 93
05/27/25 08:00 05/27/25 09:15 05/27/25 09:15 05/27/25 08:00 05/27/25 09:15
Vital Signs
Temp Pulse Resp BP Pulse Ox
100.4 F H 121 20 117/71 93
05/27/25 08:00 05/27/25 09:15 05/27/25 09:15 05/27/25 08:00 05/27/25 09:15
Intake & Output
05/25/25 05/26/25 05/27/25 05/28/25
06:59 06:59 06:59 06:59
Intake Total 1677.3 / 1719.9 1198.2 / 1278.5 2284.4 / 2301.2 50.4 / 50.4
Output Total 675 / 715 4295 / 4295 3451 / 3521 1969 / 1969
Balance 1002.3 / 1004.9 -3096.8 / -3016.5 -1166.6 / -1219.8 -1919.6 / -1919.6
Physical Exam
Physical Exam
Gen: NAD
HEENT: NC/AT, sclera anicteric
Neck: No JVD
CV: Tachycardic, irregularly irregular
Lungs: Mechanically ventilated
Abd: S/ND
: Ace with naif urine.
Ext: 1+ LE edema
Skin: Warm, dry.
Neuro: Sedated
[2025-05-27] MEDS: SUBLIMAZE 100 IV (11:13)
[2025-05-27] MEDS: LANOXIN 125 MCG TUBE (11:26)
[2025-05-27] MEDS: SENOKOT-S 2 TABLET TUBE ×2 (11:26→19:36)
[2025-05-27] MEDS: MAXIPIME 1000 MG IV ×3 (11:27→23:07)
[2025-05-27] MEDS: STERILE WATER FOR INJECTION 10 ML IV ×3 (11:28→23:07)
--- NOTE | 2025-05-27 11:34 | PTCARENOTE ---
ROUND NOTES:
No SBT/SAT due to uncontrolled tachycardia worsening CXR.
Continue aggressive diuresis. --> Enlarging effusions potential thoracentesis.
Now febrile low grade fever --> Robertson cX. --> start ABX.
Fentanyl added to decrease Diprivan rate.
[2025-05-27 12:00] VITALS: BP 117/70
--- NOTE | 2025-05-27 13:23 | W.PN.HOSP.TC ---
Today's Communication/Plan
-
iv diuresis
cards for control of afib
maintain on vent today
Assessment / Plan
Assessment / Plan
Gen: NAD, AAOx3.
Eyes: EOMI, PERRLA, no scleral icterus.
Neck: supple.
CV: tachy, irreg/irreg, +S1/S2, no m/r/g.
Resp: dec BS in the bases
Abd: +BS, soft, NT, ND
Skin: No rashes. 1+ B/L LE edema R>L
Neuro: CN 2-12 intact, non-focal.
Psych: Normal mood and affect.
CXR: Interstitial pulmonary edema with small bilateral pleural effusions.
Echo:
1. Top normal left ventricular size with severe global hypokinesis, EF 15 to 20% with possible akinesis of the inferior segments
2. Thickened mitral leaflets, moderate mitral regurgitation, mitral annular calcification, and dilated left atrium
3. Aortic sclerosis without stenosis or regurgitation
4. Borderline dilated right ventricle with hypokinesis and dilated right atrium, mild tricuspid regurgitation, pulmonary artery systolic pressure 33mmHg
In June 2023, the ejection fraction was 51%. The apical septum was akinetic there is mild mitral regurgitation.
CXR 05/25/25: Progressed prominence of the central vasculature and opacification lower lung roberts concerning for pulmonary edema. Bilateral pneumonia and pleural effusions cannot be excluded. Cardiomegaly. Stable.
CT brain: No acute intracranial abnormality noted.
CTA head/neck: No evidence of acute vascular pathology. No M1 nor M2 occlusion. Right vertebral artery pathology as described above. Unclear if chronic/congenital or acute. Large bilateral pleural effusions. New. Moderate bilateral lower lobe
consolidation. This may represent pneumonia or atelectasis. New. Multilevel degenerative disc disease.
Ventilator dependent respiratory failure
� In setting of unresponsiveness, hypotension/bradycardia
� Was holding off on extubation until rates of atrial fibrillation under control
� Trial SBT once hemodynamically stable, will hold extubation within 24 to 48 hours
�CT imaging with no evidence of severe vascular occlusion
� Neurology was on board
� Continue propofol, fentanyl for now
Atrial fibrillation with RVR:
-s/p LENARD/cardioversion January 2023, CV February 2023, started on Amio 01/2023
-h/o GIB due to hemorrhoids
-in the past pt did not want to have ablation
-was on a Cardizem gtt. On 05/24/25 pt developed bradycardia and hypotension while on the Cardizem drip, received 1mg epi, was intubated for airway protection. BB/ACEi/Aldactone held for hypotension.
-Mechanically ventilated, Goal RASS 0 to -2 (but arousable)
-cont eliquis
�Amiodarone drip, switch to oral
� Add digoxin
Acute on chronic HFrEF:
-due to Afib with RVR + medical noncompliance
-previously had a recovered EF, now EF 15-20%
-ACEi/Aldactone/Coreg/IV Lasix have been on hold with hypotension/cardiogenic shock
-Now off presors
- IV lasix
-daily wts, I/Os
-cards following
#Respiratory Alkalosis
-likely related to agitation on the vent
-propofol as needed
-vent management as per insulation technician
MELANIA, likely pre-renal, cardiorenal
-due to hypoperfusion due to cardiogenic shock
-improving
-improving
Other problems:
Hyponatremia, likely SIADH, mild, trend with diuresis
Leukocytosis, likely reactive, no evidence of infection
Mild transaminitis, likely due to congestive hepatopathy
Essential HTN: Continue spironolactone; holding lisinopril due to MELANIA; Holding coreg with afib management and BP control
Obesity due to excess calories
FULL/Eliquis
Total critical care time spent = 42 min
Anticipated Discharge: > 48 hours
Subjective/Interval History
-
Date of Service: May 27, 2025
no acute changes, still in rapid afib
Objective Data
-
Labs:
Laboratory Results
05/27/25
04:11
WBC 14.8 H
Hgb 13.0
Hct 39.1
Plt Count 159
HCO3 30.2 H
Sodium 135
Potassium 3.8
Chloride 104
Carbon Dioxide 30
BUN 23 H
Creatinine 0.9
Glucose 138 H
Calcium 7.5 L
Total Bilirubin 0.9
AST 52
ALT 193 H
Alkaline Phosphatase 98
Vital Signs:
Vital Signs
Temp Pulse Resp BP Pulse Ox
100.6 F H 129 19 117/71 96
05/27/25 12:00 05/27/25 11:30 05/27/25 11:30 05/27/25 08:00 05/27/25 12:00
I&O
05/26/25 05/27/25 05/28/25
06:59 06:59 06:59
Intake Total 1198.2 / 1278.5 2284.4 / 2301.2 117.6 / 117.6
Output Total 4295 / 4295 3451 / 3521 4020 / 4020
Balance -3096.8 / -3016.5 -1166.6 / -1219.8 -3902.4 / -3902.4
Review of Systems
-
History Source: Patient
All other systems: Not reviewed unless documented
Data Reviewed
-
Diagnostic Radiology: Report Reviewed by me
Labs: Labs Reviewed by me
--- NOTE | 2025-05-27 13:32 | W.PN.INTV ---
Today's Communication / Plan
Recommendations
- Blood cultures x 2, send tracheal aspirate for Gram stain and culture sensitivities
- Initiate IV cefepime, check nasal MRSA screen
- BMP later today to monitor electrolytes in view of large-volume diuresis
- Follow-up chest x-ray and ABG in a.m.
- DC Levophed, switch to phenylephrine on an as-needed basis
Assessment
-
59-year-old male with history of nonischemic cardiomyopathy recovered in 2022 to 51%, atrial fibrillation with RVR, history of ablation in the past, noncompliant with medications, off anticoagulation, presents with worsening shortness of breath,
palpitations, increased lower extremity TJ admitted 05/23. Started on Cardizem drip, diuresis. Patient had episode of bradycardia with change in mental status, loss of consciousness 05/24. Patient did not lose pulse, did not require CPR. Cardizem
drip stopped, given IV fluids, 1 mg epinephrine with improvement in heart rate and blood pressure but patient with agonal breathing, decreased breath sounds. Decision was made to intubate, transferred to ICU 05/24
Conditions present prior to admission
Morbid obesity
Poor dentition
Tobacco history
Family history of coronary disease/heart failure (mother)
05/27 Overview: Patient currently intubated, mechanically ventilated, 450/16/40%/5. ABG this morning 7.52, 37, 74
Currently on propofol and fentanyl infusion. Tube feed ongoing. Fluid balance -4.8 L. A-fib with RVR in 120s to 140s, SAT and SBT not pursued.
Assessment and plan:
#1. Acute respiratory failure with altered mental status, bradycardia and agonal breathing
- Patient emergently intubated and mechanically ventilated on 05/24
- SAT attempt 05/26, patient developed significant rapid ventricular rate, SAT aborted and sedation resumed
- 05/27, continues to have rapid ventricular rate, SAT/SBT not attempted
- Currently sedated with propofol and fentanyl
- Continue tube feeding, on bowel regimen
#2. Atrial fibrillation with rapid ventricular response
- Admitted to hospital 05/23, had been on Cardizem infusion which has been discontinued due to bradycardia and respiratory failure. Patient required calcium and glucagon in the setting of Cardizem related bradycardia
- Reportedly stopped taking medication as outpatient
- Currently on Eliquis 5 mg p.o. twice daily, amiodarone PO, digoxin started per cardiology service
- Rapid ventricular rate suboptimally controlled but overall improving
#3. Brief cardiogenic shock in the setting of bradycardia after IV Cardizem
- Patient briefly required pressors, received calcium and glucagon with resolution of bradycardia
- Currently patient is tachycardiac with rapid ventricular rate with underlying atrial fibrillation and is on multiple farooq blocking agents
- Cardiology service on case
- DC Levophed, will use phenylephrine on an as-needed basis
#4. 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
- Continue Lasix 40 mg twice daily, significant urine output. Monitor electrolytes later in the evening
- Continue spironolactone and potassium as prescribed
- MELANIA improving with diuresis, suggestive of cardiorenal syndrome
- Bilateral pleural effusions noted, suspect related to volume overload, diurese and reassess in 48 to 72 hours.
#5. MELANIA
- Improving with diuresis, suggestive of cardiorenal syndrome
- Continue Lasix and Aldactone, monitor renal function closely
- Check electrolytes again later today
#6. Nonischemic cardiomyopathy
- Left heart cath in 2022 without significant obstructive coronary artery disease
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
#7. Mild respiratory alkalosis
- Decrease tidal volume to 420 mL, respiratory rate down to 15, updated vent settings 420/15/40%/5
- Follow-up chest x-ray and ABG in a.m.
#8. Pulmonary hypertension
- Pulmonary artery systolic pressure around 33 with borderline dilated RV with hypokinesis with dilated right atrium on echo.
- Suspect group 2 related to left heart failure and also dilated cardiomyopathy.
- Continue to optimize volume, continue supplemental oxygen as needed to keep saturations above 90%
- Further workup as outpatient may include sleep study, pulmonary function testing etc.
#9. Fever with concern for VAP
- Patient noted to have low-grade fever, endotracheal secretions turning more purulent, continue chest x-ray opacities noted
- Blood cultures x 2, send tracheal aspirate for Gram stain and cultures with sensitivities
- Check MRSA screen
- Start cefepime IV. If MRSA screen positive, will add IV vancomycin also
- Add Tylenol on as-needed basis
DVT prophylaxis, currently anticoagulated with Eliquis p.o. twice daily
Add GI prophylaxis with IV PPI
Critical Care time 46 mins -- The patient is admitted for acute critical illness for the treatment of vital organ failure and/or prevention of further life-threatening conditions. Total care includes time spent in review of history, physical exam,
medications, hemodynamic/ventilator parameters, laboratory data, imaging and discussion with house staff, pharmacy, respiratory therapy, lens silverer, and nursing.
Data:
ECHO 05/2025: 1. Top normal left ventricular size with severe global hypokinesis, EF 15 to
20% with possible akinesis of the inferior segments
2. Thickened mitral leaflets, moderate mitral regurgitation, mitral annular
calcification, and dilated left atrium
3. Aortic sclerosis without stenosis or regurgitation
4. Borderline dilated right ventricle with hypokinesis and dilated right
atrium, mild tricuspid regurgitation, pulmonary artery systolic pressure 33
mmHg
Subjective Dataa
Subjective Data
Date of Service:
Date of Service: May 27, 2025
Subjective:
Patient currently intubated, mechanically ventilated and sedated.
Review of Systems
General: Unobtainable - Sedation
Objective Data
Data Reviewed
Vital Signs / I&O / Oxygen:
Vital Signs
Temp Pulse Resp BP Pulse Ox
100.6 F H 129 19 117/71 96
05/27/25 12:00 05/27/25 11:30 05/27/25 11:30 05/27/25 08:00 05/27/25 12:00
Intake and Output
05/26/25 05/27/25 05/28/25
06:59 06:59 06:59
Intake Total 1198.2 / 1278.5 2284.4 / 2301.2 117.6 / 117.6
Output Total 4295 / 4295 3451 / 3521 4020 / 4020
Balance -3096.8 / -3016.5 -1166.6 / -1219.8 -3902.4 / -3902.4
SaO2 [A/C] 96
SaO2 92
Nasal Cannula flow liters per 3
minute
Physical Exam
General: Comfortable and Other
HEENT: Normocephalic and Anicteric
Cardiovascular: S1-S2, Irregular Rhythm (A-fib with RVR on monitor), Murmur (n) and Peripheral Edema (Trace)
Respiratory: Wheeze (n), Crackles (n), Rhonchi (n), Non-Labored Respirations, Stridor (n), Crepitus (n), ET Tube and Other (Decreased breath sounds)
GI: Soft, Non Distended (Obese) and Non Tender
Neurology: Other (Lightly sedated, wakes up with little stimulation)
Skin: Good Color (n), Cyanosis (n) and Jaundice (n)
Labs/Micro/Reports
Lab Data
05/27/25 04:11
Laboratory Results
05/27/25
04:11
pH 7.52 H
pCO2 37
pO2 74 L
HCO3 30.2 H
O2 Delivery Level
Microbiology
05/24/25 13:48 Endotracheal Respiratory Culture - Final
Usual Respiratory Viviane
05/24/25 13:48 Endotracheal Gram Stain - Final
[2025-05-27] MEDS: TYLENOL ORAL SOLUTION 650 MG TUBE ×2 (13:36→23:07)
[2025-05-27] MEDS: NEO-SYNEPHRINE 250 IV (14:53)
--- NOTE | 2025-05-27 15:54 | CM ---
Remains intubated, IV/AB, IV/Lasix . [employer] insurance liaison called to offer support with discharge planning: July @ [phone] until 06/02/25 then Jeanette Lovelace @ [phone]. Discharge POC: TBD with medical progression.
--- NOTE | 2025-05-27 16:00 | PTCARENOTE ---
Levo changed to phenyl-ephrine and started at low dose.
Cont. diuresis.
No further change in assessment.
[2025-05-27 16:55] LABS: Blood Urea Nitrogen 22 mg/dl (9-20); Calcium 8.2 mg/dl (8.4-10.2); Carbon Dioxide 29 mmol/L (22-30); Chloride 102 mmol/L (98-107); Estimated Creatinine Clearance 86 ml/min; Glucose 130 mg/dl (70-99); Potassium 4.6 mmol/L (3.5-5.1); Sodium 137 mmol/L (135-145); eGFR > 60.00
--- NOTE | 2025-05-27 20:33 | PTCARENOTE ---
Received pt from previous RN. Pt is intubated and sedated, drowsy, lethargic. Afib with PVCs on the monitor. ETT #8 @ 22cm, AC 15/420/40%/5, lungs coarse, excessive oral secretions thick white bloody tinged. Right nare dobhoff @ 70 cm, Jevity 1.5 at
40 ml/hr, 25 ml water flush. Ace in place, hygiene provided. SCDs in place. Received pt on prop, fent, and abdullahi (see worklist). G bath provided. Safe environment maintained.
--- NOTE | 2025-05-27 23:18 | PTCARENOTE ---
Systems reviewed, no new changes in assessment. Erick gtt titrated off MAP >65. PRN Tylenol given for temp of 100.8 (see MAR). Safe environment maintained.
[2025-05-28 04:20] LABS: B.E. 7.0 mmol/L; HCO3 30.2 mmol/L (21-28); O2 Saturation % 97.6 % (94-98); PCO2 37 mmHg (35-48); PO2 80 mmHg (83-108)
[2025-05-28 04:22] LABS: Hematocrit 43.0 % (39.0-52.0); Hemoglobin 14.0 g/dL (13.0-18.0); Mean Corp Hgb Conc. 32.6 g/dL (33.0-37.0); Mean Corpuscular Volume 95.1 fL (80.0-94.0); O2 Therapy 40; Platelet Count 149 10^3/uL (130-400); Red Cell Dist. Width 17.2 % (11.5-14.5)
[2025-05-28] MEDS: TYLENOL ORAL SOLUTION 650 MG TUBE ×3 (04:28→18:23)
--- NOTE | 2025-05-28 04:35 | PTCARENOTE ---
Systems reviewed, no new changes in assessment. Prop and fent gtts maintained. AM labs provided. Safe environment maintained.
[2025-05-28 04:53] LABS: ALT (SGPT) 140 U/L (0-50); AST (SGOT) 36 U/L (17-59); Albumin 3.0 g/dl (3.5-5.0); Alkaline Phosphatase 95 U/L (38-126); Calcium 7.7 mg/dl (8.4-10.2); Carbon Dioxide 28 mmol/L (22-30); Chloride 100 mmol/L (98-107); Estimated Creatinine Clearance 86 ml/min; Glucose 154 mg/dl (70-99); Magnesium 2.1 mg/dl (1.6-2.3); Potassium 4.5 mmol/L (3.5-5.1); Sodium 135 mmol/L (135-145); Total Protein 5.4 g/dl (6.3-8.2); eGFR > 60.00
[2025-05-28] MEDS: SUBLIMAZE 100 IV (05:00)
[2025-05-28 05:01] LABS: Blood Urea Nitrogen 25 mg/dl (9-20)
[2025-05-28] MEDS: MAXIPIME 1000 MG IV ×4 (05:25→23:24)
[2025-05-28] MEDS: STERILE WATER FOR INJECTION 10 ML IV ×4 (05:25→23:24)
[2025-05-28] MEDS: SUBLIMAZE 50 MCG IV ×5 (05:44→19:23)
[2025-05-28 06:00] VITALS: BMI 27.7
[2025-05-28 08:25] VITALS: BP 133/89
[2025-05-28 08:30] VITALS: BP 133/89
[2025-05-28] MEDS: PACERONE 400 MG TUBE ×3 (08:47→21:52)
[2025-05-28] MEDS: DIPRIVAN 100 IV (08:49)
[2025-05-28] MEDS: PROTONIX IV 40 MG IV (08:54)
[2025-05-28] MEDS: LASIX 40 MG IV (08:54)
[2025-05-28] MEDS: NSS (PRESERVATIVE FREE) 10 ML IV (08:54)
[2025-05-28] MEDS: MIRALAX 17 GRAMS TUBE (08:55)
[2025-05-28] MEDS: FLUSH (NSS) 3 FLUSH IV (08:55)
[2025-05-28] MEDS: KCL ELIXIR 20 MEQ TUBE (08:55)
[2025-05-28] MEDS: SENOKOT-S 2 TABLET TUBE ×2 (08:55→20:09)
[2025-05-28] MEDS: ELIQUIS 5 MG PO ×2 (08:55→20:09)
--- NOTE | 2025-05-28 09:15 | W.PN.CARDCBS ---
Today's Communication / Plan
-
Continue oral amiodarone and digoxin for rate control. Ventricular rates not ideal.
Continues to have fevers and remains critically ill.
If blood pressure tolerates would try to add back low-dose carvedilol if possible.
Continue Eliquis.
Will decrease Lasix to 40 mg IV daily as he has diuresed significantly. Hopefully over next 24 to 48 hours can start restarting GDMT for LVEF of 15 to 20%
Impression / Plan
-
PCP: Dr. Baldwin
Building Construction Supervisor: Dr Donaldson
Assessment:
AFib RVR
Acute heart failure with reduced EF, possibly tachycardia mediated
Transient cardiogenic shock in the setting of IV diltiazem, requiring pressors, calcium, glucagon
Elevated troponin
Nonischemic cardiomyopathy
HTN
Hyperglycemia
Leukocytosis
Previous cardiovascular testing:
Left heart cath 05/05/2023: Normal coronary arteries
Echo 02/06/2023: EF 41%, mild to moderate MR
Echo 06/29/2023: EF 51%
Echo 05/24/2025: EF 15 to 20%, top normal LV, possible inferior akinesis with severe global hypokinesis, moderate MR, MAC, dilated left atrium, aortic sclerosis, borderline dilated RV with hypokinesis and dilated RA, pulmonary artery pressure was 33
at the time of the study
Plan:
Remains intubated in the ICU. Continues to have fevers on cefepime with significant secretions.
His blood pressure is improved he is now off Levophed. If pressor needed would use Erick-Synephrine.
He remains with rapid ventricular response to atrial fibrillation
Cont PO amiodarone and digoxin for rate control. Ventricular rates are not ideal but for now would make no changes as long as heart rate remains in the 110-130 range.
Avoid calcium blockers given systolic dysfunction
If blood pressure remains stable would consider adding low-dose carvedilol via tube.
If rates remain difficult to control will need to consider direct-current cardioversion when optimized from a volume standpoint
Continue Eliquis
Regarding acute heart failure with severely reduced left ventricular ejection fraction, he is diuresing and Cr remains stable
Will continue IV Lasix but decrease dose to 40 mg IV daily as he has diuresed significantly.
Wean ventilatory support as able
Hypotension limits GDMT at this time
Low-level troponin elevation noted
Nonspecific ST/T wave changes on ECG are similar to prior tracings
Left heart catheterization in 2022 with normal coronaries
Overall suspect nonischemic myocardial injury troponin elevation due to acute heart failure and A-fib RVR
Discussed with nursing
CC time - 36 minutes
Progress Note - Building Construction Supervisor
Subjective
Date of Service: May 28, 2025
Remains in A-fib with modestly elevated rates. Remains febrile with significant secretions from endotracheal tube. Now off Levophed.
Objective
Labs:
05/28/25 04:14
05/28/25 04:14
Labs
Hgb 14.0 g/dL (13.0-18.0) 05/28/25 04:14
Hct 43.0 % (39.0-52.0) 05/28/25 04:14
Plt Count 149 10^3/uL (130-400) 05/28/25 04:14
PT 20.2 Sec (11.4-14.6) H 05/24/25 12:43
INR 1.70 05/24/25 12:43
APTT 27.8 Sec (23.4-35.0) 05/24/25 12:43
Sodium 135 mmol/L (135-145) 05/28/25 04:14
Potassium 4.5 mmol/L (3.5-5.1) 05/28/25 04:14
BUN 25 mg/dl (9-20) H 05/28/25 04:14
Creatinine 0.9 mg/dL (0.7-1.3) 05/28/25 04:14
Glucose 154 mg/dl (70-99) H 05/28/25 04:14
Vital Signs and I&O:
Vital Signs
Temp Pulse Resp BP Pulse Ox
101.5 F H 121 19 134/70 97
05/28/25 07:22 05/28/25 08:54 05/28/25 06:30 05/28/25 08:54 05/28/25 07:43
Vital Signs
Temp Pulse Resp BP Pulse Ox
101.5 F H 121 19 134/70 97
05/28/25 07:22 05/28/25 08:54 05/28/25 06:30 05/28/25 08:54 05/28/25 07:43
Intake & Output
05/26/25 05/27/25 05/28/25 05/29/25
06:59 06:59 06:59 06:59
Intake Total 1198.2 / 1278.5 2284.4 / 2301.2 1294.4 / 1294.4
Output Total 4295 / 4295 3451 / 3521 7080 / 7080
Balance -3096.8 / -3016.5 -1166.6 / -1219.8 -5785.6 / -5785.6
Physical Exam
Physical Exam
GEN: No distress, intubated/sedated
HEENT: supple, anicteric, mmm, ET tube
LUNGS: bilat rhonchi
CV: Irreg, tachy, S1/S2, 1/6 syst LSB, no gallop
ABD: soft, BS+, NT/ND
EXT: No edema
NEURO: Gross non-focal
SKIN: No rash
--- NOTE | 2025-05-28 09:20 | PTCARENOTE ---
Rec'd pt at 0800 resting in bed. Rec'd pt sedated on Diprivan at 10 mcg and Fentanyl at 25 mcg both infusing via R arm DL PICC. On those doses pt is mostly restful but will open his eyes to verbal and tactile stimuli. Would not grasp hands or move
feet to command but did not his head no when asked if he was comfortable- then dozed back off. Does CAI. Skin is pink wm and dry. Temp 101.6 core- Medicated with Tylenol 650 mg via FT at 0855. Respirs- Rec'd pt intubated with #8 ETT 22 cm elaine-
repositioned in the center of his mouth at the 22 cm elaine. Currently on AC 15, tv 420, peep 5 Fio2 40%- sats are 99%. Adding rate to 24-26 and TV mostly 418-430. BS are coarse throughout. Coughing a frequent moist cough- suctioned via ETT for large
amt of thick whitish/martinez sl bloody tinged secretions and copious clear/whitish oral secretions. Monitor AFib in the 120's-130's range but does go up into the 140's with stimulation. VS as documented. Pt with L radial A line-site wnl. Zeroed and
recalibrated, overall congruent with cuff BP. + pulses. +1 LE edema. KH SCD's in place. Abd is soft with + BS. Pt with R nare feeding tube with Jevity 1.5 tube feeds at 40 ml/hr with 25 ml/hr flush. Tolerating- <5 ml residual. No stool currently.
Thermistor syed draining yellow urine. Lasix given as ordered. Turned and repositioned. Skin and mouth care given. Bilat soft wrist restraints in place for pt safety. Updated on plan of care. Kojo Oshea and Candace in to see pt and updated.
--- NOTE | 2025-05-28 10:15 | PTCARENOTE ---
Dr. Oshea in to see pt. Pt with a RASS of -2- will open eyes to verbal stimuli then dozes back off. Still with large amt of secretions via ETT and orally. Diurising from Lasix. Decision made to change pt to ASV 80% MV, 40% fio2 and peep of 5. Sats
are 98%. RR 22-23. TV 390-420. Goal to try to wake pt up more- Diprivan decreased to 10 mcg. IV Fentanyl remains at 25 mcg
--- NOTE | 2025-05-28 11:25 | PTCARENOTE ---
Tolerating ASV settings RR 20-26 with TV in the 300's. Sats 98%. ABG sent as ordered. Tolerating Diprivan at 10 mcg. Mostly is restful but will open eyes to command.
[2025-05-28 11:38] LABS: B.E. 7.5 mmol/L; HCO3 31.1 mmol/L (21-28); O2 Saturation % 98.3 % (94-98); PCO2 39 mmHg (35-48); PO2 100 mmHg (83-108)
--- NOTE | 2025-05-28 12:10 | W.PN.INTV ---
Today's Communication / Plan
Recommendations
- Switch ventilator mode to ASV with 80% of minute ventilation. ABG in an hour
- Follow-up chest x-ray in a.m.
- Initiate SAT, wean sedation as tolerated
Assessment
-
59-year-old male with history of nonischemic cardiomyopathy recovered in 2022 to 51%, atrial fibrillation with RVR, history of ablation in the past, noncompliant with medications, off anticoagulation, presents with worsening shortness of breath,
palpitations, increased lower extremity TJ admitted 05/23. Started on Cardizem drip, diuresis. Patient had episode of bradycardia with change in mental status, loss of consciousness 05/24. Patient did not lose pulse, did not require CPR. Cardizem
drip stopped, given IV fluids, 1 mg epinephrine with improvement in heart rate and blood pressure but patient with agonal breathing, decreased breath sounds. Decision was made to intubate, transferred to ICU 05/24
Conditions present prior to admission
Morbid obesity
Poor dentition
Tobacco history
Family history of coronary disease/heart failure (mother)
05/28 Overview: Patient currently intubated, mechanically ventilated, 420/15/40%/5. ABG this morning 7.51, 39, 100. Significant endotracheal secretions noted. Currently on propofol and fentanyl infusion. Tube feed ongoing. Fluid balance -2.6 L.
A-fib with RVR in 120s to 130s. Not requiring any pressors currently, MAP of 90. Tube feeding ongoing.
Assessment and plan:
#1. Acute respiratory failure with altered mental status, bradycardia and agonal breathing (?cardizem related)
- Patient emergently intubated and mechanically ventilated on 05/24
- SAT attempt 05/26, patient developed significant rapid ventricular rate, SAT aborted and sedation resumed
- 05/27, continues to have rapid ventricular rate, SAT/SBT not attempted
- Currently sedated with propofol and fentanyl
- Continue tube feeding, on bowel regimen
- Start weaning sedation, SAT today. Switch to weaning mode, ASV with 80% target minute ventilation.
- Patient still having significant secretions, not ready for extubation
#2. Atrial fibrillation with rapid ventricular response
- Admitted to hospital 05/23, had been on Cardizem infusion which has been discontinued due to bradycardia and respiratory failure. Patient required calcium and glucagon in the setting of Cardizem related bradycardia
- Reportedly stopped taking medication as outpatient
- Currently on Eliquis 5 mg p.o. twice daily, amiodarone PO, digoxin started per cardiology service. Coreg on hold due to hypotension.
- Rapid ventricular rate suboptimally controlled but overall improving
#3. Brief cardiogenic shock in the setting of bradycardia after IV Cardizem
- Patient briefly required pressors, received calcium and glucagon with resolution of bradycardia
- Currently patient is tachycardiac with rapid ventricular rate with underlying atrial fibrillation and is on multiple farooq blocking agents
- Cardiology service on case
- DC Levophed, will use phenylephrine on an as-needed basis, not requiring any pressors currently.
#4. 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
- Continue Lasix 40 mg twice daily, significant urine output. Monitor electrolytes later in the evening
- Continue spironolactone and potassium as prescribed
- MELANIA improving with diuresis, suggestive of cardiorenal syndrome
- Bilateral pleural effusions noted, suspect related to volume overload, diurese and reassess in 48 to 72 hours.
#5. MELANIA
- Improving with diuresis, suggestive of cardiorenal syndrome
- Lasix dose lowered to once daily per cardiology service.
#6. Nonischemic cardiomyopathy
- Left heart cath in 2022 without significant obstructive coronary artery disease
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
#7. Mild respiratory alkalosis
- Switch to ASV mode
#8. Pulmonary hypertension
- Pulmonary artery systolic pressure around 33 with borderline dilated RV with hypokinesis with dilated right atrium on echo.
- Suspect group 2 related to left heart failure and also dilated cardiomyopathy.
- Continue to optimize volume, continue supplemental oxygen as needed to keep saturations above 90%
- Further workup as outpatient may include sleep study, pulmonary function testing etc.
#9. Fever with concern for VAP
- Patient noted to have low-grade fever, endotracheal secretions turning more purulent, chest x-ray opacities noted
- Blood cultures x 2, sent tracheal aspirate for Gram stain and cultures with sensitivities
- Negative MRSA screen
- Continue cefepime for now
- Add Tylenol on as-needed basis
DVT prophylaxis, currently anticoagulated with Eliquis p.o. twice daily
GI prophylaxis with IV PPI
Critical Care time 44 mins -- The patient is admitted for acute critical illness for the treatment of vital organ failure and/or prevention of further life-threatening conditions. Total care includes time spent in review of history, physical exam,
medications, hemodynamic/ventilator parameters, laboratory data, imaging and discussion with house staff, pharmacy, respiratory therapy, pediatric orthodontist, and nursing.
Data:
ECHO 05/2025: 1. Top normal left ventricular size with severe global hypokinesis, EF 15 to
20% with possible akinesis of the inferior segments
2. Thickened mitral leaflets, moderate mitral regurgitation, mitral annular
calcification, and dilated left atrium
3. Aortic sclerosis without stenosis or regurgitation
4. Borderline dilated right ventricle with hypokinesis and dilated right
atrium, mild tricuspid regurgitation, pulmonary artery systolic pressure 33
mmHg
Subjective Dataa
Subjective Data
Date of Service:
Date of Service: May 28, 2025
Subjective:
Patient currently intubated, mechanically ventilated and sedated.
Review of Systems
General: Unobtainable - Sedation
Objective Data
Data Reviewed
Vital Signs / I&O / Oxygen:
Vital Signs
Temp Pulse Resp BP Pulse Ox
100.5 F H 121 21 134/70 97
05/28/25 11:26 05/28/25 11:00 05/28/25 11:00 05/28/25 08:54 05/28/25 11:00
Intake and Output
05/27/25 05/28/25 05/29/25
06:59 06:59 06:59
Intake Total 2284.4 / 2301.2 1294.4 / 1370.3 398.6 / 398.6
Output Total 3451 / 3521 7080 / 7080 585 / 585
Balance -1166.6 / -1219.8 -5785.6 / -5709.7 -186.4 / -186.4
SaO2 [ASV] 97
SaO2 [A/C] 99
SaO2 97
Nasal Cannula flow liters per 3
minute
Physical Exam
General: Comfortable and Other
HEENT: Normocephalic and Anicteric
Cardiovascular: S1-S2, Irregular Rhythm (A-fib with RVR on monitor), Murmur (n) and Peripheral Edema (Resolving)
Respiratory: Wheeze (n), Crackles (Bilaterally), Rhonchi (n), Non-Labored Respirations, Stridor (n), Crepitus (n), ET Tube and Other (Decreased breath sounds)
GI: Soft, Non Distended (Obese) and Non Tender
Neurology: Other (Lightly sedated, wakes up with little stimulation)
Skin: Good Color (n), Cyanosis (n) and Jaundice (n)
Labs/Micro/Reports
Lab Data
05/28/25 04:14
05/28/25 04:14
Laboratory Results
05/28/25 05/28/25
04:14 11:25
pH 7.52 H 7.51 H
pCO2 37 39
pO2 80 L 100
HCO3 30.2 H 31.1 H
O2 Delivery Level 40
Microbiology
05/27/25 11:40 Tracheal Aspirate Gram Stain - Preliminary
05/27/25 11:39 Nose Nasal Screen MRSA (PCR) - Final
MRSA not detected - performed by PCR methodology.
05/24/25 13:48 Endotracheal Respiratory Culture - Final
Usual Respiratory Viviane
05/24/25 13:48 Endotracheal Gram Stain - Final
--- NOTE | 2025-05-28 12:25 | PTCARENOTE ---
Since Propophol off pt is more wakeful- opens eyes-will nod head intermittently but has these restless twitching movement. HR 130 up to 150 and BP elevated to 160- Coughing frequently. Suctioned for large amt thick tannish/white secretions.
Medicated with Fentanyl 50 mcg IV and dose increased to 50 mcg/hr. RR 24-30.
--- NOTE | 2025-05-28 12:53 | W.PN.HOSP.TC ---
Today's Communication/Plan
-
f/u cultures
abx
lasix
Vent mangement for Resp Alkalosis
Assessment / Plan
Assessment / Plan
Gen: NAD, AAOx3.
Eyes: EOMI, PERRLA, no scleral icterus.
Neck: supple.
CV: tachy, irreg/irreg, +S1/S2, no m/r/g.
Resp: dec BS in the bases
Abd: +BS, soft, NT, ND
Skin: No rashes. 1+ B/L LE edema R>L
Neuro: CN 2-12 intact, non-focal.
Psych: Normal mood and affect.
CXR: Interstitial pulmonary edema with small bilateral pleural effusions.
Echo:
1. Top normal left ventricular size with severe global hypokinesis, EF 15 to 20% with possible akinesis of the inferior segments
2. Thickened mitral leaflets, moderate mitral regurgitation, mitral annular calcification, and dilated left atrium
3. Aortic sclerosis without stenosis or regurgitation
4. Borderline dilated right ventricle with hypokinesis and dilated right atrium, mild tricuspid regurgitation, pulmonary artery systolic pressure 33mmHg
In June 2023, the ejection fraction was 51%. The apical septum was akinetic there is mild mitral regurgitation.
CXR 05/25/25: Progressed prominence of the central vasculature and opacification lower lung roberts concerning for pulmonary edema. Bilateral pneumonia and pleural effusions cannot be excluded. Cardiomegaly. Stable.
CT brain: No acute intracranial abnormality noted.
CTA head/neck: No evidence of acute vascular pathology. No M1 nor M2 occlusion. Right vertebral artery pathology as described above. Unclear if chronic/congenital or acute. Large bilateral pleural effusions. New. Moderate bilateral lower lobe
consolidation. This may represent pneumonia or atelectasis. New. Multilevel degenerative disc disease.
Ventilator dependent respiratory failure
� In setting of unresponsiveness, hypotension/bradycardia; now with increased secretions
� Was holding off on extubation until rates of atrial fibrillation under control
� Trial SBT once hemodynamically stable
�CT imaging with no evidence of severe vascular occlusion
� Neurology was on board
� Continue propofol, fentanyl for now
Atrial fibrillation with RVR:
-s/p LENARD/cardioversion January 2023, CV February 2023, started on Amio 01/2023
-h/o GIB due to hemorrhoids
-in the past pt did not want to have ablation
-was on a Cardizem gtt. On 05/24/25 pt developed bradycardia and hypotension while on the Cardizem drip, received 1mg epi, was intubated for airway protection. BB/ACEi/Aldactone held for hypotension.
-Mechanically ventilated, Goal RASS 0 to -2 (but arousable)
-cont eliquis
�Amiodarone
� Add digoxin
#Fever
-concern for developing VAP
-on Cefepime
-F?u blood cultures, trach cultures
-Neg MRSA
Acute on chronic HFrEF:
-due to Afib with RVR + medical noncompliance
-previously had a recovered EF, now EF 15-20%
-ACEi/Aldactone/Coreg/IV Lasix have been on hold with hypotension/cardiogenic shock
-Now off presors
- IV lasix - monitor BPs with fever
-daily wts, I/Os
-cards following
#Respiratory Alkalosis
-Switch to ASV and monitor
-propofol as needed
-vent management as per field installation technician
MELANIA, likely pre-renal, cardiorenal
-due to hypoperfusion due to cardiogenic shock
-improving
Other problems:
Hyponatremia, likely SIADH, mild, trend with diuresis
Leukocytosis, likely reactive, no evidence of infection
Mild transaminitis, likely due to congestive hepatopathy
Essential HTN: Continue spironolactone; holding lisinopril due to MELANIA; Holding coreg with afib management and BP control
Obesity due to excess calories
FULL/Eliquis
Total critical care time spent = 43 min
Anticipated Discharge: > 48 hours
Subjective/Interval History
-
Date of Service: May 28, 2025
increased trach secretions production
Objective Data
-
Labs:
Laboratory Results
05/28/25 05/28/25
04:14 11:25
WBC 15.7 H
Hgb 14.0
Hct 43.0
Plt Count 149
HCO3 30.2 H 31.1 H
Sodium 135
Potassium 4.5
Chloride 100
Carbon Dioxide 28
BUN 25 H
Creatinine 0.9
Glucose 154 H
Calcium 7.7 L
Total Bilirubin 1.2
AST 36
ALT 140 H
Alkaline Phosphatase 95
Vital Signs:
Vital Signs
Temp Pulse Resp BP Pulse Ox
100.5 F H 121 21 134/70 97
05/28/25 11:26 05/28/25 11:00 05/28/25 11:00 05/28/25 08:54 05/28/25 11:00
I&O
05/27/25 05/28/25 05/29/25
06:59 06:59 06:59
Intake Total 2284.4 / 2301.2 1294.4 / 1370.3 398.6 / 398.6
Output Total 3451 / 3521 7080 / 7080 585 / 585
Balance -1166.6 / -1219.8 -5785.6 / -5709.7 -186.4 / -186.4
Review of Systems
-
Unable to obtain full review of systems at this time due to: Patient Intubation
History Source: Patient
Data Reviewed
-
Diagnostic Radiology: Report Reviewed by me
Labs: Labs Reviewed by me
--- NOTE | 2025-05-28 13:00 | PTCARENOTE ---
Calmer post Fentanyl bolus
[2025-05-28] MEDS: FLUSH (NSS) 1 FLUSH IV (13:23)
[2025-05-28] MEDS: LANOXIN 125 MCG TUBE (13:23)
--- NOTE | 2025-05-28 14:00 | PTCARENOTE ---
Pt remains resting. HR mostly 120-130's up to [address] Oshea in and updated. VS as documented. Remains somewhat wakeful. Pt has occasional restless 'twitch' like movements but overall is not moving all over the bed. Opens eyes in a startle
like response on his own and to commands. Will nod head to some questions and did follow basic commands to squeeze hands and move feet. Does nod yes and no at times to questions. Tends to doze back off then 'startle' himself awake. Overall
tolerating ASV ventilation- RR 21-26 and TV 260-340. Bs are coarse. Still requiring suctioning for large amts of thick tannish/whitish at times bloody tinged secretions. HR 120-140's AFIb. Tolerating tube feeds- Per Hand Box Folder Rate increased to 50
ml/hr currently. Dr. Oshea updated on HR and resp status. Propophol has been off since 1130
--- NOTE | 2025-05-28 15:01 | CM ---
Intubated, IV/AB, IV/Lasix, initiate SAT, wean sedation as tolerated. Discharge POC: TBD based on medical progression.
--- NOTE | 2025-05-28 16:15 | PTCARENOTE ---
Assessment overall is unchanged. Restful until he starts coughing then starts to get restless, turning head and coughing frequently. Remedicated with Fentanyl 50 mcg IV to help relax pt. Suctioned. BS are coarse. Overall is tolerating ASV settings.
Sats are 97%. RR when not coughing is 19-22 and TV 400-500. PP 17. HR 116-130's Afib. Tolerating tube feeds. Urine output as documented. Ace draining mostly yellow but at times sl bloody tinged urine. Turned and repositioned. Sweaty- complete CHG
bath given. Soft wrist restraints remain on as pt tends to want to reach up toward ETT. Continues to nod head to stimuli and open eyes.
[2025-05-28 16:16] VITALS: BP 94/58
--- NOTE | 2025-05-28 17:40 | PTCARENOTE ---
Pt restful after previous dose of Fentanyl for about an hr now restless again. BP elevated into the 170-190 syst. Coughing-large amt of secretions. Shaking head side to side. Sweaty. HR int he 140-150's. Diprivan turned back on at at 10 mcg at 1720
and currently Fentanyl 50 mcg IV given at 1735. ETT - new llanos placed on pt and ETT retaped at the 22 cm elaine R side of the mouth. Repositioned. Suctioned
[2025-05-28] MEDS: FLUSH (NSS) 2 FLUSH IV (18:23)
[2025-05-28 18:32] VITALS: BP 115/82
--- NOTE | 2025-05-28 18:40 | PTCARENOTE ---
More restful since Fentanyl bolus and Propophol back on. Still will open eyes but HR down to the 118-128 range. No other changes.
--- NOTE | 2025-05-28 20:53 | PTCARENOTE ---
Received pt from previous RN. Pt is drowsy, lethargic, opens eyes to verbal stimuli, does not follow commands. B/l wrist restraints in place. Afib on the monitor. ETT #8 22 at the lip. ASV 80% MV, 40% FiO2, 5 peep, O2 sat 96%, lungs coarse.
Productive, moist frequent cough, suctioning provided. Right nare dobhoff @ 70 cm, Jevity 1.5 increased to goal at 55 ml/hr, with 25 ml water flush. Ace in place, draining naif, blood tinged urine. SCDs in place. Received pt on 10 mcgs of prop
and 50 mcgs of fent. Prop titrated and fent bolus given (see MAR and worklist). Bharati zeroed and transduced. Safe environment maintained.
--- NOTE | 2025-05-28 23:53 | PTCARENOTE ---
Systems reviewed, no new changes in assessment. Prop and fent gtts maintained (see worklist). Mouth care provided. Safe environment maintained.
[2025-05-29] VITALS (7 sets, daily range): BP systolic 112–133; BMI 27.5
[2025-05-29] MEDS: DIPRIVAN 100 IV ×2 (00:25→10:00)
[2025-05-29] MEDS: SUBLIMAZE 50 MCG IV ×2 (00:30→08:51)
[2025-05-29 04:26] LABS: B.E. 7.5 mmol/L; HCO3 32.7 mmol/L (21-28); O2 Saturation % 95.9 % (94-98); PCO2 47 mmHg (35-48); PO2 76 mmHg (83-108)
[2025-05-29 04:30] LABS: Hematocrit 42.5 % (39.0-52.0); Hemoglobin 13.5 g/dL (13.0-18.0); Mean Corp Hgb Conc. 31.8 g/dL (33.0-37.0); Mean Corpuscular Volume 97.0 fL (80.0-94.0); Platelet Count 139 10^3/uL (130-400); Red Cell Dist. Width 16.4 % (11.5-14.5)
[2025-05-29] MEDS: TYLENOL ORAL SOLUTION 650 MG TUBE ×3 (04:39→23:14)
--- NOTE | 2025-05-29 04:50 | PTCARENOTE ---
Systems reviewed, no new changes in assessment. Prop and fent gtt maintained. AM labs provided. Safe environment maintained.
[2025-05-29 04:59] LABS: ALT (SGPT) 90 U/L (0-50); AST (SGOT) 26 U/L (17-59); Albumin 2.9 g/dl (3.5-5.0); Alkaline Phosphatase 100 U/L (38-126); Blood Urea Nitrogen 33 mg/dl (9-20); Calcium 7.9 mg/dl (8.4-10.2); Carbon Dioxide 30 mmol/L (22-30); Chloride 101 mmol/L (98-107); Estimated Creatinine Clearance 86 ml/min; Glucose 159 mg/dl (70-99); Potassium 4.6 mmol/L (3.5-5.1); Sodium 136 mmol/L (135-145); Total Protein 5.4 g/dl (6.3-8.2); eGFR > 60.00
[2025-05-29] MEDS: MAXIPIME 1000 MG IV ×4 (05:11→23:14)
[2025-05-29] MEDS: STERILE WATER FOR INJECTION 10 ML IV ×4 (05:12→23:14)
[2025-05-29] MEDS: SUBLIMAZE 100 IV (06:11)
--- NOTE | 2025-05-29 08:00 | PTCARENOTE ---
Assumed care of patient. Pt rec'd sedated on ventilator. Restrained. Pt occasionally opens eyes...does not follow commands. Pupils 2/sluggish. Fentanyl prn provided prior to oral care and repositioning. S1 S2 irregular w/ afib on monitor.
Weak PP. +1 LLE. Knee hi SCD's on...heels elevated on pillows. #8 ETT 22cm left lip. Current vent settings: ASV 80% min vol/PEEP 5/FIO2 40%....sats 98%. Lungs diminished and coarse throughout. Suctioned via ETT for thick martinez. Right nare dhf
(@ 70cm) w/ Jevity 1.5 @ 55ml/hr (goal rate) and 25ml/hr H20 flushes. Abdomen round...hyper BS. Temp sensing syed draining naif urine. Syed care done. Skin pale in color. Sacrum intact. Left radial ramila..flushed and zeroed. #18P LAC.
#20P LH. Right DL PICC w/ fentanyl and diprivan gtts infusing...see interventions. VS documented. Safe environment confirmed. Will continue to monitor closely.
[2025-05-29] MEDS: NSS (PRESERVATIVE FREE) 10 ML IV (08:13)
[2025-05-29] MEDS: PROTONIX IV 40 MG IV (08:13)
[2025-05-29] MEDS: LASIX 40 MG IV (08:14)
[2025-05-29] MEDS: SENOKOT-S 2 TABLET TUBE ×2 (08:17→19:56)
[2025-05-29] MEDS: KCL ELIXIR 20 MEQ TUBE (08:17)
[2025-05-29] MEDS: ELIQUIS 5 MG PO (08:17)
[2025-05-29] MEDS: PACERONE 400 MG TUBE ×3 (08:18→23:12)
[2025-05-29] MEDS: MIRALAX 17 GRAMS TUBE (08:18)
--- NOTE | 2025-05-29 10:37 | CM ---
Rag Collector received a phone call from patient's sister, Frances Cortez, . Sister was seeking direction regarding FMLA paperwork completion and DC plan process. Instructed sister to contact patient's PCP and ask if they will
complete FMLA forms; if they are unwilling to do so, instructed sister to bring the forms to the hospital for the Hospitalist/Retirement Plan Counselor to complete.
CM explained that disposition is unknown at this time. Rag Collector will contact her when patient is stable enough for PT/OT to evaluate and recommendations are identified.
--- NOTE | 2025-05-29 10:53 | W.PN.CARDCBS ---
Today's Communication / Plan
-
ok to use precedex to help with sedation when agitated. Ideally would be better for him if we could get him off the ventilator.
Continue Lasix 40 mg IV daily. He has diuresed well and weight is down.
He remains in A-fib with modestly elevated rates. Okay to continue amiodarone and digoxin. Will add back low-dose carvedilol today 3.125 mg twice daily via tube.
will likely decrease Amiodarone over next 24 hours
Abnormal troponin is likely nonischemic myocardial injury.
Impression / Plan
-
PCP: Dr. Baldwin
Wheel Installer: Dr Donaldson
Assessment:
AFib RVR
Acute heart failure with reduced EF, possibly tachycardia mediated
Transient cardiogenic shock in the setting of IV diltiazem, requiring pressors, calcium, glucagon
Elevated troponin
Nonischemic cardiomyopathy
HTN
Hyperglycemia
Leukocytosis
Previous cardiovascular testing:
Left heart cath 05/05/2023: Normal coronary arteries
Echo 02/06/2023: EF 41%, mild to moderate MR
Echo 06/29/2023: EF 51%
Echo 05/24/2025: EF 15 to 20%, top normal LV, possible inferior akinesis with severe global hypokinesis, moderate MR, MAC, dilated left atrium, aortic sclerosis, borderline dilated RV with hypokinesis and dilated RA, pulmonary artery pressure was 33
at the time of the study
Plan:
Remains intubated in the ICU. Continues to have low grade fevers on cefepime with significant secretions.
His blood pressure is improved he is now off Levophed. If pressor needed would use Erick-Synephrine. Remains off pressors
Hopefully can wean to extubate today. OK for precedex to help with sedation
He remains nn atrial fibrillation with modestly elevated rates. Will attempt to add low-dose carvedilol via tube today.
Cont PO amiodarone and digoxin for rate control.
Avoid calcium blockers given systolic dysfunction
If rates remain difficult to control will need to consider direct-current cardioversion when optimized from a volume standpoint
Continue Eliquis
Regarding acute heart failure with severely reduced left ventricular ejection fraction, he is diuresing and Cr remains stable
Will continue IV Lasix 40 mg IV daily as he has diuresed significantly.
Wean ventilatory support as able
Hypotension limits GDMT at this time
Low-level troponin elevation noted
Nonspecific ST/T wave changes on ECG are similar to prior tracings
Left heart catheterization in 2022 with normal coronaries
Overall suspect nonischemic myocardial injury troponin elevation due to acute heart failure and A-fib RVR
Discussed with nursing
CC time - 31 minutes
Progress Note - Wheel Installer
Subjective
Date of Service: May 29, 2025
Remains agitated on ventilator when weaning. Still in A-fib with modestly elevated ventricular rates. Now off pressors. Still with low-grade fevers
Objective
Labs:
05/29/25 04:17
05/29/25 04:17
Labs
Hgb 13.5 g/dL (13.0-18.0) 05/29/25 04:17
Hct 42.5 % (39.0-52.0) 05/29/25 04:17
Plt Count 139 10^3/uL (130-400) 05/29/25 04:17
PT 20.2 Sec (11.4-14.6) H 05/24/25 12:43
INR 1.70 05/24/25 12:43
APTT 27.8 Sec (23.4-35.0) 05/24/25 12:43
Sodium 136 mmol/L (135-145) 05/29/25 04:17
Potassium 4.6 mmol/L (3.5-5.1) 05/29/25 04:17
BUN 33 mg/dl (9-20) H 05/29/25 04:17
Creatinine 0.9 mg/dL (0.7-1.3) 05/29/25 04:17
Glucose 159 mg/dl (70-99) H 05/29/25 04:17
Vital Signs and I&O:
Vital Signs
Temp Pulse Resp BP Pulse Ox
100.1 F 129 22 130/66 92
05/29/25 08:00 05/29/25 08:18 05/29/25 06:30 05/29/25 08:18 05/29/25 08:06
Vital Signs
Temp Pulse Resp BP Pulse Ox
100.1 F 129 22 130/66 92
05/29/25 08:00 05/29/25 08:18 05/29/25 06:30 05/29/25 08:18 05/29/25 08:06
Intake & Output
05/27/25 05/28/25 05/29/25 05/30/25
06:59 06:59 06:59 06:59
Intake Total 2284.4 / 2301.2 1294.4 / 1370.3 2165.3 / 2258.7 361.8 / 361.8
Output Total 3451 / 3521 7080 / 7080 2115 / 2165 400 / 400
Balance -1166.6 / -1219.8 -5785.6 / -5709.7 50.3 / 93.7 -38.2 / -38.2
Physical Exam
Physical Exam
GEN: intubated/ sedated
HEENT: supple, anicteric, mmm, ET tube
LUNGS: bilat rhonchi
CV: Irreg, S1/S2, 1/6 syst LSB, S4+
ABD: soft, BS+, NT/ND
EXT: No edema
NEURO: Gross non-focal
SKIN: No rash
[2025-05-29] MEDS: LANOXIN 125 MCG TUBE (11:06)
--- NOTE | 2025-05-29 11:45 | PTCARENOTE ---
No major changes in physical assessment since am. Precedex gtt initiated per MD orders @ 1030. Probable SBT today. VS documented. Safe environment confirmed. Will continue to monitor.
--- NOTE | 2025-05-29 12:24 | PTCARENOTE ---
Pt placed on CPAP 5/PSV 5 at 1158 by RPT. Sats 96%. RR 16-28. Pt appears comfortable...will continue to monitor.
[2025-05-29 13:12] LABS: B.E. 7.1 mmol/L; HCO3 31.2 mmol/L (21-28); O2 Saturation % 98.6 % (94-98); PCO2 41 mmHg (35-48); PO2 100 mmHg (83-108)
--- NOTE | 2025-05-29 13:41 | W.PN.HOSP.TC ---
Addendum entered and electronically signed by Carlos A Persaud MD 05/29/25 15:49:
Sepsis
Original Note:
Today's Communication/Plan
-
Add Coreg
Cont Lasix
Cont Abx
attempt initiating Precedex to facilitate extubation
Assessment / Plan
Assessment / Plan
Gen: NAD, AAOx3.
Eyes: EOMI, PERRLA, no scleral icterus.
Neck: supple.
CV: tachy, irreg/irreg, +S1/S2, no m/r/g.
Resp: dec BS in the bases
Abd: +BS, soft, NT, ND
Skin: No rashes. 1+ B/L LE edema R>L
Neuro: CN 2-12 intact, non-focal.
Psych: Normal mood and affect.
CXR: Interstitial pulmonary edema with small bilateral pleural effusions.
Echo:
1. Top normal left ventricular size with severe global hypokinesis, EF 15 to 20% with possible akinesis of the inferior segments
2. Thickened mitral leaflets, moderate mitral regurgitation, mitral annular calcification, and dilated left atrium
3. Aortic sclerosis without stenosis or regurgitation
4. Borderline dilated right ventricle with hypokinesis and dilated right atrium, mild tricuspid regurgitation, pulmonary artery systolic pressure 33mmHg
In June 2023, the ejection fraction was 51%. The apical septum was akinetic there is mild mitral regurgitation.
CXR 05/25/25: Progressed prominence of the central vasculature and opacification lower lung roberts concerning for pulmonary edema. Bilateral pneumonia and pleural effusions cannot be excluded. Cardiomegaly. Stable.
CT brain: No acute intracranial abnormality noted.
CTA head/neck: No evidence of acute vascular pathology. No M1 nor M2 occlusion. Right vertebral artery pathology as described above. Unclear if chronic/congenital or acute. Large bilateral pleural effusions. New. Moderate bilateral lower lobe
consolidation. This may represent pneumonia or atelectasis. New. Multilevel degenerative disc disease.
Ventilator dependent respiratory failure
� In setting of unresponsiveness, hypotension/bradycardia; now with increased secretions
� Was holding off on extubation until rates of atrial fibrillation under control
� Trial SBT once hemodynamically stable
�CT imaging with no evidence of severe vascular occlusion
� Neurology was on board
� Continue propofol, fentanyl - attempt initiating Precedex to facilitate extubation
Atrial fibrillation with RVR:
-s/p LENARD/cardioversion January 2023, CV February 2023, started on Amio 01/2023
-h/o GIB due to hemorrhoids
-in the past pt did not want to have ablation
-was on a Cardizem gtt. On 05/24/25 pt developed bradycardia and hypotension while on the Cardizem drip, received 1mg epi, was intubated for airway protection. BB/ACEi/Aldactone held for hypotension.
-Mechanically ventilated, Goal RASS 0 to -2 (but arousable)
-cont eliquis
�Amiodarone
� digoxin
-Add back Coreg
#Fever, improving
-concern for developing VAP
-Cultures: Moraxella catarrhalis
-on Cefepime
--Neg MRSA
Acute on chronic HFrEF:
-due to Afib with RVR + medical noncompliance
-previously had a recovered EF, now EF 15-20%
-ACEi/Aldactone/Coreg/IV Lasix have been on hold with hypotension/cardiogenic shock
-Now off presors
- IV lasix - monitor BPs with fever
-daily wts, I/Os
-cards following
#Respiratory Alkalosis, improved
-Switch to ASV and monitor
-propofol as needed
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
MELANIA, likely pre-renal, cardiorenal
-due to hypoperfusion due to cardiogenic shock
-improving
Other problems:
Hyponatremia, likely SIADH, mild, trend with diuresis
Leukocytosis, likely reactive, no evidence of infection
Mild transaminitis, likely due to congestive hepatopathy
Essential HTN: Continue spironolactone; holding lisinopril due to MELANIA; Holding coreg with afib management and BP control
Obesity due to excess calories
FULL/Eliquis
Total critical care time spent = 43 min
Anticipated Discharge: > 48 hours
Subjective/Interval History
-
Date of Service: May 29, 2025
no acute events overnight, Trach secretions improved
Objective Data
-
Labs:
Laboratory Results
05/29/25 05/29/25
04:17 12:55
WBC 17.0 H
Hgb 13.5
Hct 42.5
Plt Count 139
HCO3 32.7 H 31.2 H
Sodium 136
Potassium 4.6
Chloride 101
Carbon Dioxide 30
BUN 33 H
Creatinine 0.9
Glucose 159 H
Calcium 7.9 L
Total Bilirubin 1.0
AST 26
ALT 90 H
Alkaline Phosphatase 100
Vital Signs:
Vital Signs
Temp Pulse Resp BP Pulse Ox
100.7 F H 129 23 130/66 97
05/29/25 11:45 05/29/25 12:49 05/29/25 12:49 05/29/25 08:18 05/29/25 12:49
I&O
05/28/25 05/29/25 05/30/25
06:59 06:59 06:59
Intake Total 1294.4 / 1370.3 2165.3 / 2258.7 433.6 / 433.6
Output Total 7080 / 7080 2114 / 5 1000 / 1000
Balance -5785.6 / -5709.7 50.3 / 93.7 -566.4 / -566.4
Review of Systems
-
History Source: Patient
All other systems: Not reviewed unless documented
Data Reviewed
-
Diagnostic Radiology: Report Reviewed by me
Labs: Labs Reviewed by me
--- NOTE | 2025-05-29 13:45 | PTCARENOTE ---
aware of ABG results. Propofol gtt turned off. Precedex gtt increased to 0.5 mcg/kg/hr. TF's placed on hold. Fentanyl remains infusing. Pt remains on CPAP/PSV wean. Will continue to monitor.
--- NOTE | 2025-05-29 14:21 | PN.CDI ---
CDI
- -
CDI:
Physician Documentation Request
Admit Date: 05/23/25 23:02
Dear Doctor Cori,
Clinical Indicators:
Patient admitted with Afib and acute on chronic HFrEF.
05/29 PN, '...concern for developing VAP -Cultures: Moraxella catarrhalis'
WBC:
05/28/25
04:14
WBC 15.7 H
Temp:
05/28/25
08:30
Temp 101.6 F H
HR/RR Trend:
05/28/25
08:00 05/28/25
09:00 05/28/25
10:00
Pulse 107 134 133
Resp Rate 21 22 22
05/28/25
11:30 05/28/25
14:30 05/28/25
16:00
Pulse 122 126 135
Resp Rate 23 26 32
Please clarify which of the following most accurately describes the status of the patient's infection:
Sepsis
- Systemic manifestations of infection, with 2 or more SIRS criteria which include:
- Fever >100.9 degrees F or hypothermia < 96.8 degrees F
- Leukocytosis - WBC > 12,000 or leukopenia - WBC < 4,000 or > 10% bands
- Tachycardia > 90 beats per minute
- Tachypnea - RR > 20 breaths per minute or PaCO2 , 32mmHg
Source: [employer]ck Manual 2013
Pneumonia Only, Without Systemic Illness
Other, please specify
Use of terms such as suspected, likely, concern for, or probable (associated with a specific diagnosis that is being evaluated, monitored, or treated as if it exists) are acceptable and can be coded in the inpatient setting, when documented at the
time of discharge.
Thank you,
DANIEL Lopez RN
CDI Specialist
available via tiger text
Please use your independent medical judgment in providing your response.
[2025-05-29] MEDS: LOPRESSOR 5 MG IV (14:33)
--- NOTE | 2025-05-29 14:38 | PTCARENOTE ---
aware of pt's increase HR and BP. Order rec'd to give IV lopressor. Will monitor response and update .
--- NOTE | 2025-05-29 14:57 | W.PN.INTV ---
Addendum entered and electronically signed by Sergey Oshea MD 05/29/25 17:30:
Patient was placed on pressure support which she tolerated well, follow-up ABG was reassuring
Sedation was weaned off and patient was extubated to nasal cannula
Original Note:
Today's Communication / Plan
Recommendations
- Start Precedex infusion
- Wean off propofol, initiate SAT and SBT on pressure support
- Check ABG 30 minutes after pressure support trial
- Lopressor 5 mg IV x 1 for RVR
- Anticipate extubation later today
Assessment
-
59-year-old male with history of nonischemic cardiomyopathy recovered in 2022 to 51%, atrial fibrillation with RVR, history of ablation in the past, noncompliant with medications, off anticoagulation, presents with worsening shortness of breath,
palpitations, increased lower extremity TJ admitted 05/23. Started on Cardizem drip, diuresis. Patient had episode of bradycardia with change in mental status, loss of consciousness 05/24. Patient did not lose pulse, did not require CPR. Cardizem
drip stopped, given IV fluids, 1 mg epinephrine with improvement in heart rate and blood pressure but patient with agonal breathing, decreased breath sounds. Decision was made to intubate, transferred to ICU 05/24
Conditions present prior to admission
Morbid obesity
Poor dentition
Tobacco history
Family history of coronary disease/heart failure (mother)
05/29 Overview: Patient currently intubated, mechanically ventilated, ASV mode @ 80%, tolerating well. 7.40 . Currently on propofol and fentanyl infusion. MAP of 92, not requiring any pressors. Saturating 98%. Low-grade temperature
overall improving, endotracheal secretions significantly improved.
Assessment and plan:
#1. Acute respiratory failure with altered mental status, bradycardia and agonal breathing (?cardizem related)
- Patient emergently intubated and mechanically ventilated on 05/24
- SAT attempt 05/26, patient developed significant rapid ventricular rate, SAT aborted and sedation resumed
- 07/15, continues to have rapid ventricular rate, SAT/SBT not attempted
- 05/29, secretions significantly improved after initiation of antibiotics and diuresis. Patient has been on ASV mode for the last 24 hours, tolerating well. Initiate SAT and SBT, wean sedation, start Precedex with the goal to extubate.
#2. Atrial fibrillation with rapid ventricular response
- Admitted to hospital 05/23, had been on Cardizem infusion which has been discontinued due to bradycardia and respiratory failure. Patient required calcium and glucagon in the setting of Cardizem related bradycardia
- Reportedly stopped taking medication as outpatient
- Currently on Eliquis 5 mg p.o. twice daily, amiodarone PO, digoxin started per cardiology service. Coreg on hold due to hypotension.
- Rapid ventricular rate suboptimally controlled but overall improving
- Lopressor 5 mg IV x 1
#3. Brief cardiogenic shock in the setting of bradycardia after IV Cardizem
- Patient briefly required pressors, received calcium and glucagon with resolution of bradycardia
- Currently patient is tachycardiac with rapid ventricular rate with underlying atrial fibrillation and is on multiple farooq blocking agents
- Cardiology service on case
- DC Levophed, will use phenylephrine on an as-needed basis, not requiring any pressors currently.
#4. 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
- Continue Lasix 40 mg IV daily.
- MELANIA improving with diuresis, suggestive of cardiorenal syndrome
- Bilateral pleural effusions significantly improved on chest x-ray today, responding well to ongoing diuresis.
#5. MELANIA
- Improving with diuresis, suggestive of cardiorenal syndrome
- Lasix dose lowered to once daily per cardiology service.
#6. Nonischemic cardiomyopathy
- Left heart cath in 2022 without significant obstructive coronary artery disease
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
#7. Mild respiratory alkalosis
- Switched to ASV mode
#8. Pulmonary hypertension
- Pulmonary artery systolic pressure around 33 with borderline dilated RV with hypokinesis with dilated right atrium on echo.
- Suspect group 2 related to left heart failure and also dilated cardiomyopathy.
- Continue to optimize volume, continue supplemental oxygen as needed to keep saturations above 90%
- Further workup as outpatient may include sleep study, pulmonary function testing etc.
#9. Purulent tracheobronchitis with Moraxella on sputum cultures. No obvious pneumonia noted on imaging
- Still febrile however overall improving
-Endotracheal secretions significantly improved after initiation of antibiotics, will aim for a total of 7 days.
DVT prophylaxis, currently anticoagulated with Eliquis p.o. twice daily
GI prophylaxis with IV PPI
Critical Care time 44 mins -- The patient is admitted for acute critical illness for the treatment of vital organ failure and/or prevention of further life-threatening conditions. Total care includes time spent in review of history, physical exam,
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
Data:
ECHO 05/2025: 1. Top normal left ventricular size with severe global hypokinesis, EF 15 to
20% with possible akinesis of the inferior segments
2. Thickened mitral leaflets, moderate mitral regurgitation, mitral annular
calcification, and dilated left atrium
3. Aortic sclerosis without stenosis or regurgitation
4. Borderline dilated right ventricle with hypokinesis and dilated right
atrium, mild tricuspid regurgitation, pulmonary artery systolic pressure 33
mmHg
Subjective Dataa
Subjective Data
Date of Service:
Date of Service: May 29, 2025
Subjective:
Patient currently sedated, intubated, mechanically ventilated
Review of Systems
General: Unobtainable - Sedation
Objective Data
Data Reviewed
Vital Signs / I&O / Oxygen:
Vital Signs
Temp Pulse Resp BP Pulse Ox
100.7 F H 125 24 142/67 97
05/29/25 11:45 05/29/25 14:33 05/29/25 13:48 05/29/25 14:33 05/29/25 13:48
Intake and Output
05/28/25 05/29/25 05/30/25
06:59 06:59 06:59
Intake Total 1294.4 / 1370.3 2165.3 / 2258.7 465.7 / 465.7
Output Total 7080 / 7080 2115 / 2165 1315 / 1315
Balance -5785.6 / -5709.7 50.3 / 93.7 -849.3 / -849.3
SaO2 [CPAP/PSV] 97
SaO2 [ASV] 98
SaO2 [A/C] 99
SaO2 97
Nasal Cannula flow liters per 3
minute
Physical Exam
General: Comfortable and Other
HEENT: Normocephalic and Anicteric
Cardiovascular: S1-S2, Irregular Rhythm (A-fib with RVR on monitor), Murmur (n) and Peripheral Edema (Resolving)
Respiratory: Wheeze (n), Crackles (Quite improved), Rhonchi (n), Non-Labored Respirations, Stridor (n), Crepitus (n), ET Tube and Other (Decreased breath sounds)
GI: Soft, Non Distended (Obese) and Non Tender
Neurology: Other (Lightly sedated, wakes up with little stimulation)
Skin: Good Color (n), Cyanosis (n) and Jaundice (n)
Labs/Micro/Reports
Lab Data
05/29/25 04:17
05/29/25 04:17
Laboratory Results
05/29/25 05/29/25
04:17 12:55
pH 7.45 7.49 H
pCO2 47 41
pO2 76 L 100
HCO3 32.7 H 31.2 H
O2 Delivery Level
Microbiology
05/27/25 12:13 Blood/Venous Blood Culture - Preliminary
No Growth in 48 hours- Final report to follow
05/27/25 12:13 Blood/Venous Blood Culture - Preliminary
No Growth in 48 hours- Final report to follow
05/27/25 11:40 Tracheal Aspirate Respiratory Culture - Final
Moraxella catarrhalis
05/27/25 11:40 Tracheal Aspirate Gram Stain - Final
05/28/25 21:42 Tracheal Aspirate Gram Stain - Preliminary
05/28/25 09:22 Blood/Venous Blood Culture - Preliminary
No Growth in 24 hours- Final report to follow
05/27/25 11:39 Nose Nasal Screen MRSA (PCR) - Final
MRSA not detected - performed by PCR methodology.
--- NOTE | 2025-05-29 14:59 | PTCARENOTE ---
Per ...pt extubated to 4L N/C at 1455. Sats 96-97%. Will monitor closely.
[2025-05-29 15:48] LABS: B.E. 7.2 mmol/L; HCO3 30.1 mmol/L (21-28); O2 Saturation % 97.7 % (94-98); PCO2 36 mmHg (35-48); PO2 79 mmHg (83-108)
--- NOTE | 2025-05-29 16:00 | PTCARENOTE ---
O2 increased to 6L N/C per . Sats 96%. Pt opens eyes to verbal stimuli...follows simple commands. Nods head yes and no. Moist NPC. Lungs diminished throughout w/ scattered posterior coarse rhonchi. Encouraged pt to cough and deep
breath. VS obtained. Febrile (101.7)...tylenol provided thru NGT. TF's to remain off per but keep dobhoff. Restraints removed. Pt not attempting to remove any medical equipment at present. Will continue to monitor.
[2025-05-29] MEDS: COREG 3.125 MG TUBE (19:55)
[2025-05-29] MEDS: ELIQUIS 5 MG TUBE (19:56)
[2025-05-30] VITALS (15 sets, daily range): BP systolic 93–134; BP diastolic 32–98; PULSE 115–138; O2SAT 95; BMI 27.9
--- NOTE | 2025-05-30 02:57 | PTCARENOTE ---
Pt received at 19:00. Ox1-2, drowsy. Restless at times. Currently requesting to go to the hospital tomorrow, when told that he is currently in the hospital he then asks when he can go home. Poor vocal quality, attempts to speak, mouths words and
intermittently soft whisper. Follows simple commands and nods y/n. Afib, HR low 100s-130s at times. L radial a-line zeroed and transduced. Radial pulses palpable, DP weak but palpable. Trace LE edema. 6L NC, pulse ox 96-98%, desats to 88-91 when O2
off. DHT R nare @ 70 cm, abdomen rounded, no BM noted. Ace in place, yellow/naif urine. Safe environment maintained, call moreira within reach.
[2025-05-30 05:09] LABS: B.E. 5.2 mmol/L; HCO3 29.0 mmol/L (21-28); O2 Saturation % 97.5 % (94-98); PCO2 39 mmHg (35-48); PO2 83 mmHg (83-108)
[2025-05-30 05:33] LABS: Hematocrit 43.8 % (39.0-52.0); Hemoglobin 14.0 g/dL (13.0-18.0); Mean Corp Hgb Conc. 32.0 g/dL (33.0-37.0); Mean Corpuscular Volume 97.3 fL (80.0-94.0); Platelet Count 159 10^3/uL (130-400); Red Cell Dist. Width 16.0 % (11.5-14.5)
[2025-05-30] MEDS: STERILE WATER FOR INJECTION 10 ML IV ×3 (06:42→17:24)
[2025-05-30] MEDS: MAXIPIME 1000 MG IV ×3 (06:42→17:24)
--- NOTE | 2025-05-30 07:38 | PTCARENOTE ---
unable to verify vitals from 05/29/25 at 1630 to 05/30/25 0600, previous shifts.
[2025-05-30] MEDS: LASIX 40 MG IV (07:39)
[2025-05-30] MEDS: SENOKOT-S 2 TABLET TUBE ×2 (07:39→20:06)
[2025-05-30] MEDS: ELIQUIS 5 MG TUBE ×2 (07:39→20:06)
[2025-05-30] MEDS: NSS (PRESERVATIVE FREE) 10 ML IV (07:39)
[2025-05-30] MEDS: PROTONIX IV 40 MG IV (07:39)
[2025-05-30] MEDS: COREG 3.125 MG TUBE (07:39)
[2025-05-30] MEDS: PACERONE 400 MG TUBE (07:39)
[2025-05-30] MEDS: MIRALAX 17 GRAMS TUBE (07:40)
[2025-05-30 08:16] LABS: ALT (SGPT) 63 U/L (0-50); AST (SGOT) 26 U/L (17-59); Albumin 3.1 g/dl (3.5-5.0); Alkaline Phosphatase 98 U/L (38-126); Blood Urea Nitrogen 34 mg/dl (9-20); Calcium 8.3 mg/dl (8.4-10.2); Carbon Dioxide 26 mmol/L (22-30); Chloride 105 mmol/L (98-107); Estimated Creatinine Clearance 111 ml/min; Glucose 119 mg/dl (70-99); Potassium 4.9 mmol/L (3.5-5.1); Sodium 138 mmol/L (135-145); Total Protein 5.7 g/dl (6.3-8.2); Triglycerides 118 mg/dl (10-149); eGFR > 60.00
[2025-05-30 08:21] LABS: Digoxin < 0.4 ng/ml (0.8-2.0)
--- NOTE | 2025-05-30 08:59 | PTCARENOTE ---
pt received from previous rn- pt oriented to self and place, occasionally time, forgetful. pt attempted to pull dobhoff and lines, right mitt placed per order. pt continuously reoriented and educated. left radial ramila zeroed and functioning, pt
afib on monitor 120s-130s. on 6LNC, no complaints at this time. syed draining yellow urine. am care provided. all safety precautions in place, call moreira within reach.
--- NOTE | 2025-05-30 09:52 | W.PN.CARDCBS ---
Today's Communication / Plan
-
Increase carvedilol to 6.25 mg p.o. twice daily.
Decrease amiodarone to 200 mg p.o. twice daily. Okay to continue digoxin for now but if ventricular rates are improved we will consider stopping digoxin.
Continue Lasix 40 mg IV daily. Weight is overall down.
Now extubated. Continue antibiotics and pulmonary care.
Hopefully resume lisinopril/spironolactone over next 24 to 48 hours if blood pressure tolerate.
Once recovers we will discuss SLG 2 inhibitors with him.
Impression / Plan
-
PCP: Dr. Baldwin
Day Care Aide: Dr Donaldson
Assessment:
AFib RVR
Acute heart failure with reduced EF, possibly tachycardia mediated
Transient cardiogenic shock in the setting of IV diltiazem, requiring pressors, calcium, glucagon
Elevated troponin
Nonischemic cardiomyopathy
HTN
Hyperglycemia
Leukocytosis
Previous cardiovascular testing:
Left heart cath 05/05/2023: Normal coronary arteries
Echo 02/06/2023: EF 41%, mild to moderate MR
Echo 06/29/2023: EF 51%
Echo 05/24/2025: EF 15 to 20%, top normal LV, possible inferior akinesis with severe global hypokinesis, moderate MR, MAC, dilated left atrium, aortic sclerosis, borderline dilated RV with hypokinesis and dilated RA, pulmonary artery pressure was 33
at the time of the study
Plan:
Now extubated. but in restraints.
He remains in atrial fibrillation with modestly elevated rates. Will increase Coreg to 6.25 mg p.o. twice daily.
Cont PO amiodarone and digoxin for rate control.
Avoid calcium blockers given systolic dysfunction. If blood pressure remains stable would consider adding lisinopril spironolactone back over next 24 to 48 hours
Continue antibiotics for pneumonia per
If rates remain difficult to control will need to consider direct-current cardioversion when optimized from a volume standpoint
Continue Eliquis
Regarding acute heart failure with severely reduced left ventricular ejection fraction, he is diuresing and Cr remains stable
Will continue IV Lasix 40 mg IV daily as he has diuresed significantly.
Low-level troponin elevation noted
Nonspecific ST/T wave changes on ECG are similar to prior tracings
Left heart catheterization in 2022 with normal coronaries
Overall suspect nonischemic myocardial injury troponin elevation due to acute heart failure and A-fib RVR
Discussed with nursing
Progress Note - Day Care Aide
Subjective
Date of Service: May 30, 2025
Patient is now extubated but in restraints. He denies chest pains or palpitations. A-fib remains poorly controlled.
Objective
Labs:
05/30/25 04:58
05/30/25 07:33
Labs
Hgb 14.0 g/dL (13.0-18.0) 05/30/25 04:58
Hct 43.8 % (39.0-52.0) 05/30/25 04:58
Plt Count 159 10^3/uL (130-400) 05/30/25 04:58
PT 20.2 Sec (11.4-14.6) H 05/24/25 12:43
INR 1.70 05/24/25 12:43
APTT 27.8 Sec (23.4-35.0) 05/24/25 12:43
Sodium 138 mmol/L (135-145) 05/30/25 07:33
Potassium 4.9 mmol/L (3.5-5.1) 05/30/25 07:33
BUN 34 mg/dl (9-20) H 05/30/25 07:33
Creatinine 0.7 mg/dL (0.7-1.3) 05/30/25 07:33
Glucose 119 mg/dl (70-99) H 05/30/25 07:33
Digoxin < 0.4 ng/ml (0.8-2.0) L 05/30/25 07:33
Vital Signs and I&O:
Vital Signs
Temp Pulse Resp BP Pulse Ox
100 F 123 24 115/82 97
05/30/25 07:38 05/30/25 09:00 05/30/25 09:00 05/30/25 04:58 05/30/25 08:00
Vital Signs
Temp Pulse Resp BP Pulse Ox
100 F 123 24 115/82 97
05/30/25 07:38 05/30/25 09:00 05/30/25 09:00 05/30/25 04:58 05/30/25 08:00
Intake & Output
05/28/25 05/29/25 05/30/25 05/31/25
06:59 06:59 06:59 06:59
Intake Total 1294.4 / 1370.3 2165.3 / 2258.7 876.3 / 876.3
Output Total 7080 / 7080 2115 / 2165 2075 / 2175 100 / 100
Balance -5785.6 / -5709.7 50.3 / 93.7 -1198.7 / -1298.7 -100 / -100
Physical Exam
Physical Exam
GEN: No distress, awake,
HEENT: supple, anicteric, mmm
LUNGS: scatt rhonchi
CV: Irreg, S1/S2, 1/6 syst LSB, no gallop
ABD: soft, BS+, NT/ND
EXT: trace edema
NEURO: Gross non-focal
SKIN: No rash
[2025-05-30] MEDS: KCL ELIXIR TUBE (10:03)
--- NOTE | 2025-05-30 10:43 | PTCARENOTE ---
arterial line removed as per order, pressure dressing applied and intact. frequent oral care provided. pt downgraded to imu level of care, on 2LNC, assessment unchanged further.
[2025-05-30] MEDS: LANOXIN 125 MCG TUBE (11:44)
[2025-05-30] MEDS: TYLENOL ORAL SOLUTION 650 MG TUBE (11:45)
--- NOTE | 2025-05-30 12:02 | W.PN.INTV ---
Today's Communication / Plan
Recommendations
- Patient stable for transfer out of ICU, orders placed for IMU
- Start physical therapy, Occupational Therapy, speech therapy evaluation, if able to take p.o. will discontinue feeding tube
- Incentive spirometry, sit in chair as tolerated
- Cardiac Care Unit Nurse service will sign off, please call as needed
Assessment
-
59-year-old male with history of nonischemic cardiomyopathy recovered in 2022 to 51%, atrial fibrillation with RVR, history of ablation in the past, noncompliant with medications, off anticoagulation, presents with worsening shortness of breath,
palpitations, increased lower extremity TJ admitted 05/23. Started on Cardizem drip, diuresis. Patient had episode of bradycardia with change in mental status, loss of consciousness 05/24. Patient did not lose pulse, did not require CPR. Cardizem
drip stopped, given IV fluids, 1 mg epinephrine with improvement in heart rate and blood pressure but patient with agonal breathing, decreased breath sounds. Decision was made to intubate, transferred to ICU 05/24
Conditions present prior to admission
Morbid obesity
Poor dentition
Tobacco history
Family history of coronary disease/heart failure (mother)
05/30 Overview: Patient currently extubated. Currently on nasal cannula at 6 L, saturating mid 90s, blood gas 7.48, 39, 83. MAP around 99, heart rate running around mid 120s.
Assessment and plan:
#1. Acute respiratory failure with altered mental status, bradycardia and agonal breathing (?cardizem related)
- Patient emergently intubated and mechanically ventilated on 05/24. successfully extubated to [place] on 05/29
- Currently on 6 L nasal cannula, saturating 94%, no cough or expectoration noted.
#2. Atrial fibrillation with rapid ventricular response
- Admitted to hospital 05/23, had been on Cardizem infusion which has been discontinued due to bradycardia and respiratory failure. Patient required calcium and glucagon in the setting of Cardizem related bradycardia
- Reportedly stopped taking medication as outpatient
- Currently on Eliquis 5 mg p.o. twice daily, amiodarone PO, digoxin started per cardiology service. Coreg resumed per cardiology service
- Continues to have intermittent tachycardia
#3. Brief cardiogenic shock in the setting of bradycardia after IV Cardizem
- Patient briefly required pressors, received calcium and glucagon with resolution of bradycardia
- Currently patient is tachycardiac with rapid ventricular rate with underlying atrial fibrillation and is on multiple farooq blocking agents
- Cardiology service on case
- Off all pressors now.
#4. 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
- Continue Lasix 40 mg IV daily.
- MELANIA improving with diuresis, suggestive of cardiorenal syndrome
- Bilateral pleural effusions significantly improved on chest x-ray today, responding well to ongoing diuresis.
#5. MELANIA
- Improving with diuresis, suggestive of cardiorenal syndrome
- Lasix dose lowered to once daily per cardiology service.
#6. Nonischemic cardiomyopathy
- Left heart cath in 2022 without significant obstructive coronary artery disease
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
#7. Mild respiratory alkalosis
- Resolved
#8. Pulmonary hypertension
- Pulmonary artery systolic pressure around 33 with borderline dilated RV with hypokinesis with dilated right atrium on echo.
- Suspect group 2 related to left heart failure and also dilated cardiomyopathy.
- Continue to optimize volume, continue supplemental oxygen as needed to keep saturations above 90%
- Further workup as outpatient may include sleep study, pulmonary function testing etc.
#9. Purulent tracheobronchitis with Moraxella on sputum cultures. No obvious pneumonia noted on imaging
- Fever spike going down, no significant cough, expectoration has resolved.
- Continue to monitor
DVT prophylaxis, currently anticoagulated with Eliquis p.o. twice daily
GI prophylaxis with IV PPI
Cardiac Care Unit Nurse service will sign off, patient stable for transfer to IMU.
Critical Care time 36 mins -- The patient is admitted for acute critical illness for the treatment of vital organ failure and/or prevention of further life-threatening conditions. Total care includes time spent in review of history, physical exam,
medications, hemodynamic/ventilator parameters, laboratory data, imaging and discussion with house staff, pharmacy, respiratory therapy, case operator, and nursing.
Data:
ECHO 05/2025: 1. Top normal left ventricular size with severe global hypokinesis, EF 15 to
20% with possible akinesis of the inferior segments
2. Thickened mitral leaflets, moderate mitral regurgitation, mitral annular
calcification, and dilated left atrium
3. Aortic sclerosis without stenosis or regurgitation
4. Borderline dilated right ventricle with hypokinesis and dilated right
atrium, mild tricuspid regurgitation, pulmonary artery systolic pressure 33
mmHg
Subjective Dataa
Subjective Data
Date of Service:
Date of Service: May 30, 2025
Subjective:
Patient successfully extubated, continues to improve, not in any acute distress.
Review of Systems
Genitourinary: Other (All 14 systems reviewed and negative except as stated above in the history of present illness.)
Objective Data
Data Reviewed
Vital Signs / I&O / Oxygen:
Vital Signs
Temp Pulse Resp BP Pulse Ox
100 F 140 21 112/80 97
05/30/25 10:44 05/30/25 11:44 05/30/25 11:21 05/30/25 11:21 05/30/25 11:00
Intake and Output
05/29/25 05/30/25 05/31/25
06:59 06:59 06:59
Intake Total 2165.3 / 2258.7 876.3 / 876.3
Output Total 2115 / 2165 2075 / 2175 1250 / 1250
Balance 50.3 / 93.7 -1198.7 / -1298.7 -1250 / -1250
SaO2 [CPAP/PSV] 97
SaO2 [ASV] 98
SaO2 [A/C] 99
SaO2 97
Nasal Cannula flow liters per 6
minute
Physical Exam
General: Comfortable and Other
HEENT: Normocephalic and Anicteric
Cardiovascular: S1-S2, Irregular Rhythm (A-fib with RVR on monitor), Murmur (n) and Peripheral Edema (Nearly resolved)
Respiratory: Wheeze (n), Crackles (Nearly resolved), Rhonchi (n), Non-Labored Respirations, Stridor (n), Crepitus (n), ET Tube and Other (Decreased breath sounds)
GI: Soft, Non Distended (Obese) and Non Tender
Neurology: Awake and Alert
Skin: Warm, Good Color (n), Cyanosis (n) and Jaundice (n)
Labs/Micro/Reports
Lab Data
05/30/25 04:58
05/30/25 07:33
Laboratory Results
05/29/25 05/29/25 05/30/25
12:55 15:38 04:58
pH 7.49 H 7.53 H 7.48 H
pCO2 41 36 39
pO2 100 79 L 83
HCO3 31.2 H 30.1 H 29.0 H
O2 Delivery Level
Microbiology
05/28/25 21:42 Tracheal Aspirate Respiratory Culture - Preliminary
NO GROWTH
05/28/25 21:42 Tracheal Aspirate Gram Stain - Preliminary
05/28/25 09:22 Blood/Venous Blood Culture - Preliminary
No Growth in 48 hours- Final report to follow
05/27/25 12:13 Blood/Venous Blood Culture - Preliminary
No Growth in 48 hours- Final report to follow
05/27/25 12:13 Blood/Venous Blood Culture - Preliminary
No Growth in 48 hours- Final report to follow
05/27/25 11:40 Tracheal Aspirate Respiratory Culture - Final
Moraxella catarrhalis
05/27/25 11:40 Tracheal Aspirate Gram Stain - Final
05/27/25 11:39 Nose Nasal Screen MRSA (PCR) - Final
MRSA not detected - performed by PCR methodology.
--- NOTE | 2025-05-30 14:14 | PTCARENOTE ---
report given to Rahel verdin, sister aware of transfer. syed removed, condom cath placed. pt oob for approx 2 hours with pt and ot.
--- NOTE | 2025-05-30 14:19 | W.PN.HOSP.TC ---
Today's Communication/Plan
-
abx
monitor fever curve, le dopplers if continued fevers and can add on eosinophils
iv diuretics
increase coreg
reduce amio, as per cards
dig
Assessment / Plan
Assessment / Plan
Gen: NAD, AAOx3.
Eyes: EOMI, PERRLA, no scleral icterus.
Neck: supple.
CV: tachy, irreg/irreg, +S1/S2, no m/r/g.
Resp: dec BS in the bases
Abd: +BS, soft, NT, ND
Skin: No rashes. 1+ B/L LE edema R>L
Neuro: CN 2-12 intact, non-focal.
Psych: Normal mood and affect.
CXR: Interstitial pulmonary edema with small bilateral pleural effusions.
Echo:
1. Top normal left ventricular size with severe global hypokinesis, EF 15 to 20% with possible akinesis of the inferior segments
2. Thickened mitral leaflets, moderate mitral regurgitation, mitral annular calcification, and dilated left atrium
3. Aortic sclerosis without stenosis or regurgitation
4. Borderline dilated right ventricle with hypokinesis and dilated right atrium, mild tricuspid regurgitation, pulmonary artery systolic pressure 33mmHg
In June 2023, the ejection fraction was 51%. The apical septum was akinetic there is mild mitral regurgitation.
CXR 05/25/25: Progressed prominence of the central vasculature and opacification lower lung roberts concerning for pulmonary edema. Bilateral pneumonia and pleural effusions cannot be excluded. Cardiomegaly. Stable.
CT brain: No acute intracranial abnormality noted.
CTA head/neck: No evidence of acute vascular pathology. No M1 nor M2 occlusion. Right vertebral artery pathology as described above. Unclear if chronic/congenital or acute. Large bilateral pleural effusions. New. Moderate bilateral lower lobe
consolidation. This may represent pneumonia or atelectasis. New. Multilevel degenerative disc disease.
Ventilator dependent respiratory failure
� In setting of unresponsiveness, hypotension/bradycardia; now with increased secretions
�CT imaging with no evidence of severe vascular occlusion
� Neurology was on board
� propofol, fentanyl, switch to Precedex for extubation
� Successfully extubated 05/29 evening, tolerating well
-IC/Acapella
#Sepsisimproving
-concern for developing VAP
-Cultures: Moraxella catarrhalis
-on Cefepime
--Neg MRSA
-monitor fever curve, wbc
#Atrial fibrillation with RVR:
-s/p LENARD/cardioversion January 2023, CV February 2023, started on Amio 01/2023
-h/o GIB due to hemorrhoids
-in the past pt did not want to have ablation
-was on a Cardizem gtt. On 05/24/25 pt developed bradycardia and hypotension while on the Cardizem drip, received 1mg epi, was intubated for airway protection. BB/ACEi/Aldactone held for hypotension.
-Mechanically ventilated, Goal RASS 0 to -2 (but arousable)
-cont eliquis
�Amiodarone
� digoxin
-Add back Coreg, increase as needed
#Acute metabolic encephalopathy
� Secondary to sepsis along with most likely delirium
� Monitor with resuscitation, now that extubated
#Acute on chronic HFrEF:
-due to Afib with RVR + medical noncompliance
-previously had a recovered EF, now EF 15-20%
-ACEi/Aldactone/Coreg/IV Lasix have been on hold with hypotension/cardiogenic shock
-Now off presors
- IV lasix - monitor BPs with fever
-daily wts, I/Os
-cards following
#Respiratory Alkalosis, improved
-Improved on ASV
MELANIA, likely pre-renal, cardiorenal
-due to hypoperfusion due to cardiogenic shock
-improving
Other problems:
Hyponatremia, likely SIADH, mild, trend with diuresis
Mild transaminitis, likely due to congestive hepatopathy - improving
Essential HTN: Continue spironolactone; holding lisinopril due to MELANIA;
Obesity due to excess calories
FULL/Eliquis
Anticipated Discharge: > 48 hours
Subjective/Interval History
-
Date of Service: May 30, 2025
Extubated yesterday evening, tolerating well, alert and oriented x 2
Objective Data
-
Labs:
Laboratory Results
05/30/25 05/30/25 05/30/25
04:58 06:31 07:33
WBC 15.1 H
Hgb 14.0
Hct 43.8
Plt Count 159
HCO3 29.0 H
Sodium Cancelled Cancelled 138
Potassium Cancelled Cancelled 4.9
Chloride Cancelled Cancelled 105
Carbon Dioxide Cancelled Cancelled 26
BUN Cancelled Cancelled 34 H
Creatinine Cancelled Cancelled 0.7
Glucose Cancelled Cancelled 119 H
Calcium Cancelled Cancelled 8.3 L
Total Bilirubin Cancelled Cancelled 1.4 H
AST Cancelled Cancelled 26
ALT Cancelled Cancelled 63 H
Alkaline Phosphatase Cancelled Cancelled 98
Vital Signs:
Vital Signs
Temp Pulse Resp BP Pulse Ox
100 F 125 21 107/73 92
05/30/25 10:44 05/30/25 14:00 05/30/25 14:00 05/30/25 14:00 05/30/25 14:00
I&O
05/29/25 05/30/25 05/31/25
06:59 06:59 06:59
Intake Total 2165.3 / 2258.7 876.3 / 876.3
Output Total 5 / 2165 2075 / 2175 1450 / 1450
Balance 50.3 / 93.7 -1198.7 / -1298.7 -1450 / -1450
Review of Systems
-
History Source: Patient
All other systems: Not reviewed unless documented
Data Reviewed
-
Diagnostic Radiology: Report Reviewed by me
Labs: Labs Reviewed by me
--- NOTE | 2025-05-30 16:06 | PTOTSP ---
Dysphagia Evaluation
Patient presents with signs concerning for oral/pharyngeal dysphagia suspected to be related to post-extubation after prolonged intubation (05/24-05/29) and acute encephalopathy. Severe dysphonia noted.
Recommend:
1. NPO; consider use of non-oral means in place (DHT)
2. Medications: via non-oral means
3. Aspiration Risk Hydration Protocol - hold given AMS
4. Oral care 3x daily with suctioning
5. THERAPEUTIC SUPPORT STAFF to f/u and determine if/when appropriate to initiate ARHP, diet, and/or instrumental swallowing assessment. May benefit from FEES.
--- NOTE | 2025-05-30 16:15 | CM ---
Extubated, IV/Lasix and Cefepime, med adjustments, now IMU. Discharge POC: Therapy rec for SNF. Medicare .Gov list provided.
--- NOTE | 2025-05-30 16:16 | PTCARENOTE ---
Patient seen by speech therapy and advised to keep patient NPO. advised to keep using DHT for meds and to continue holding TF and will re-eval tomorrow.
[2025-05-30] MEDS: COREG 6.25 MG TUBE (20:07)
[2025-05-30] MEDS: PACERONE 200 MG TUBE (20:07)
--- NOTE | 2025-05-30 23:20 | PTCARENOTE ---
Assumed care for patient overnight. Pt is very restless. Pt AAOx1, disoriented to time and place pt states [place] Attempted to reorient pt. Pt has a hoarse voice, and mouths words intermittently. SpO2 95% on 3L NC. Attempting to
wean. Pt has a frequent moist weak cough. Pt follows simple commands. A-fib on the monitor. HR 105. DHT R nare intact. Tube feeds still on hold until further evaluation, speech evaluated pt and pt is to remain NPO. Pt incontinent of urine and
bowels. Urine is naif in color. Pt had one small BM. R mitt is tied, see orders. Pt still attempting to pull at DHT. Pt tolerating frequent turning and repositioning. Bed alarm is on.
[2025-05-31] VITALS (14 sets, daily range): BP systolic 85–136; BP diastolic 61–103; BMI 26.4
[2025-05-31] MEDS: MAXIPIME 1000 MG IV ×4 (00:36→17:45)
[2025-05-31] MEDS: STERILE WATER FOR INJECTION 10 ML IV ×4 (00:36→17:46)
--- NOTE | 2025-05-31 02:48 | PTCARENOTE ---
Patient increasingly agitated and restless. Pt got R mitt off and pulled out L AC IV. Pulled tele leads off and was attempted to get gown off. Pt was disoriented to place but was able to be reoriented and calmed down. TABITHA Nava made aware, orders
for b/l mitts due to concern for pulling out DHT. Pt calm and resting at this time.
[2025-05-31 04:55] LABS: Hematocrit 44.8 % (39.0-52.0); Hemoglobin 14.3 g/dL (13.0-18.0); Mean Corp Hgb Conc. 31.9 g/dL (33.0-37.0); Mean Corpuscular Volume 97.8 fL (80.0-94.0); Platelet Count 195 10^3/uL (130-400); Red Cell Dist. Width 15.8 % (11.5-14.5)
[2025-05-31 05:22] LABS: ALT (SGPT) 52 U/L (0-50); AST (SGOT) 25 U/L (17-59); Albumin 3.3 g/dl (3.5-5.0); Alkaline Phosphatase 105 U/L (38-126); Blood Urea Nitrogen 46 mg/dl (9-20); Calcium 8.7 mg/dl (8.4-10.2); Carbon Dioxide 31 mmol/L (22-30); Chloride 102 mmol/L (98-107); Estimated Creatinine Clearance 85 ml/min; Glucose 112 mg/dl (70-99); Magnesium 2.7 mg/dl (1.6-2.3); Potassium 4.6 mmol/L (3.5-5.1); Sodium 140 mmol/L (135-145); Total Protein 6.1 g/dl (6.3-8.2); eGFR > 60.00
[2025-05-31] MEDS: COREG 6.25 MG TUBE ×2 (06:37→20:44)
[2025-05-31] MEDS: PACERONE 200 MG TUBE ×2 (06:37→20:43)
--- NOTE | 2025-05-31 06:55 | PTCARENOTE ---
Patient HR up to the 160s. Pt asymptomatic. TABITHA Nava made aware and to give 0800 Coreg and Amiodarone. See MAR.
[2025-05-31] MEDS: ELIQUIS 5 MG TUBE ×2 (08:07→20:43)
[2025-05-31] MEDS: MIRALAX 17 GRAMS TUBE (08:08)
[2025-05-31] MEDS: SENOKOT-S 2 TABLET TUBE (08:08)
[2025-05-31] MEDS: LASIX 40 MG IV (08:11)
--- NOTE | 2025-05-31 08:44 | W.PN.CARDCBS ---
Today's Communication / Plan
-
Maintain rate control agents at current doses today
Maintain oral anticoagulation.
Impression / Plan
-
PCP: Dr. Baldwin
Osteopathic Resident: Dr Donaldson
Assessment:
AFib RVR
Acute heart failure with reduced EF, possibly tachycardia mediated
Transient cardiogenic shock in the setting of IV diltiazem, requiring pressors, calcium, glucagon
Elevated troponin
Nonischemic cardiomyopathy
HTN
Hyperglycemia
Leukocytosis
Previous cardiovascular testing:
Left heart cath 05/05/2023: Normal coronary arteries
Echo 02/06/2023: EF 41%, mild to moderate MR
Echo 06/29/2023: EF 51%
Echo 05/24/2025: EF 15 to 20%, top normal LV, possible inferior akinesis with severe global hypokinesis, moderate MR, MAC, dilated left atrium, aortic sclerosis, borderline dilated RV with hypokinesis and dilated RA, pulmonary artery pressure was 33
at the time of the study
Plan:
Now extubated. but in restraints.
He remains in atrial fibrillation with modestly elevated rates but better controlled over the last 24 hours.
Coreg was increased to Coreg to 6.25 mg p.o. twice daily starting 05/30/2025, continue at this dose and reassess heart rate control over the next 24 hours
Remains on digoxin
Amiodarone was reduced from 400 mg 3 times daily to 200 mg twice daily on May 30, 2025
Avoid calcium blockers given systolic dysfunction.
Maintain Eliquis for atrial fibrillation related thromboembolic risk reduction
Heart failure with reduced ejection fraction
Lasix 40 mg IV daily for volume overload
Weight down 10 pounds (?) overnight
Fluid balance is -1350 mL
Creatinine is stable but BUN/creatinine ratio is rising slightly, potassium 4.6 and magnesium 2.7
If blood pressure remains stable would consider adding lisinopril and spironolactone back over next 24 to 48 hours
Continue antibiotics for pneumonia per
Low-level troponin elevation noted (on 05/23 and 05/24 trops 0.056, 0.064, 0.071)
Nonspecific ST/T wave changes on ECG are similar to prior tracings
Left heart catheterization in 2022 with normal coronaries
Overall suspect nonischemic myocardial injury troponin elevation due to acute heart failure and A-fib RVR
At this point we have no plan for ischemic evaluation.
Total time spent today was 52 minutes in preparing to see the patient, seeing the patient and coordination of care. This included review of recent laboratory evaluations, cardiact testing, imaging studies, primary care rtecords, specialty
consultations, hospital records, as well as personally interviewing and examining the patient, which included discussion of their tests, review/ordering medications, and communicating with other healthcare professionals and also treatment planning
as well as counseling.
Progress Note - Osteopathic Resident
Subjective
Date of Service: May 31, 2025
In bed, restraints on, NG tube in place.
He is able to communicate with me that he is hungry and he wants to eat. No chest pain or shortness of breath.
Objective
Labs:
05/31/25 04:43
05/31/25 04:43
Labs
Hgb 14.3 g/dL (13.0-18.0) 05/31/25 04:43
Hct 44.8 % (39.0-52.0) 05/31/25 04:43
Plt Count 195 10^3/uL (130-400) D 05/31/25 04:43
PT 20.2 Sec (11.4-14.6) H 05/24/25 12:43
INR 1.70 05/24/25 12:43
APTT 27.8 Sec (23.4-35.0) 05/24/25 12:43
Sodium 140 mmol/L (135-145) 05/31/25 04:43
Potassium 4.6 mmol/L (3.5-5.1) 05/31/25 04:43
BUN 46 mg/dl (9-20) H 05/31/25 04:43
Creatinine 0.9 mg/dL (0.7-1.3) 05/31/25 04:43
Glucose 112 mg/dl (70-99) H 05/31/25 04:43
Digoxin < 0.4 ng/ml (0.8-2.0) L 05/30/25 07:33
Vital Signs and I&O:
Vital Signs
Temp Pulse Resp BP Pulse Ox
98.4 F 105 20 111/73 97
05/31/25 04:14 05/31/25 08:11 05/31/25 06:18 05/31/25 08:11 05/31/25 06:18
Vital Signs
Temp Pulse Resp BP Pulse Ox
98.4 F 105 20 111/73 97
05/31/25 04:14 05/31/25 08:11 05/31/25 06:18 05/31/25 08:11 05/31/25 06:18
Intake & Output
05/29/25 05/30/25 05/31/25 06/01/25
06:59 06:59 06:59 06:59
Intake Total 2165.3 / 2258.7 876.3 / 876.3
Output Total 2115 / 2165 2075 / 2175 1450 / 1450 350 / 350
Balance 50.3 / 93.7 -1198.7 / -1298.7 -1450 / -1450 -350 / -350
Physical Exam
Physical Exam
In bed, restraints on, NG tube in place
Appears comfortable
Irregularly irregular mildly tachycardic with normal S1 and S2, no S3 no S4 grade 1/6 apical systolic murmur no rubs
Abdomen is soft and nondistended, nontender
Lungs are clear to auscultation anteriorly bilaterally
Extremities with +1 lower extremity edema bilaterally
[2025-05-31] MEDS: ZESTRIL PO (10:47)
[2025-05-31] MEDS: LANOXIN 125 MCG TUBE (12:11)
--- NOTE | 2025-05-31 14:16 | W.PN.HOSP.TC ---
Today's Communication/Plan
-
abx
iv lasix
amio, dig, bb
resume TF
Assessment / Plan
Assessment / Plan
Gen: NAD, AAOx3.
Eyes: EOMI, PERRLA, no scleral icterus.
Neck: supple.
CV: tachy, irreg/irreg, +S1/S2, no m/r/g.
Resp: dec BS in the bases
Abd: +BS, soft, NT, ND
Skin: No rashes. 1+ B/L LE edema R>L
Neuro: CN 2-12 intact, non-focal.
Psych: Normal mood and affect.
CXR: Interstitial pulmonary edema with small bilateral pleural effusions.
Echo:
1. Top normal left ventricular size with severe global hypokinesis, EF 15 to 20% with possible akinesis of the inferior segments
2. Thickened mitral leaflets, moderate mitral regurgitation, mitral annular calcification, and dilated left atrium
3. Aortic sclerosis without stenosis or regurgitation
4. Borderline dilated right ventricle with hypokinesis and dilated right atrium, mild tricuspid regurgitation, pulmonary artery systolic pressure 33mmHg
In June 2023, the ejection fraction was 51%. The apical septum was akinetic there is mild mitral regurgitation.
CXR 05/25/25: Progressed prominence of the central vasculature and opacification lower lung roberts concerning for pulmonary edema. Bilateral pneumonia and pleural effusions cannot be excluded. Cardiomegaly. Stable.
CT brain: No acute intracranial abnormality noted.
CTA head/neck: No evidence of acute vascular pathology. No M1 nor M2 occlusion. Right vertebral artery pathology as described above. Unclear if chronic/congenital or acute. Large bilateral pleural effusions. New. Moderate bilateral lower lobe
consolidation. This may represent pneumonia or atelectasis. New. Multilevel degenerative disc disease.
Ventilator dependent respiratory failure
� In setting of unresponsiveness, hypotension/bradycardia; now with increased secretions
�CT imaging with no evidence of severe vascular occlusion
� Neurology was on board
� propofol, fentanyl, switch to Precedex for extubation
� Successfully extubated 05/29 evening, tolerating well
-IC/Acapella
#Sepsis improving
-concern for developing VAP
-Cultures: Moraxella catarrhalis
-on Cefepime
--Neg MRSA
-monitor fever curve, wbc
#Atrial fibrillation with RVR:
-s/p LENARD/cardioversion January 2023, CV February 2023, started on Amio 01/2023
-h/o GIB due to hemorrhoids
-in the past pt did not want to have ablation
-was on a Cardizem gtt. On 05/24/25 pt developed bradycardia and hypotension while on the Cardizem drip, received 1mg epi, was intubated for airway protection. BB/ACEi/Aldactone held for hypotension.
-Mechanically ventilated, Goal RASS 0 to -2 (but arousable)
-cont eliquis
�Amiodarone
� digoxin
-Coreg, increase as needed
#Acute metabolic encephalopathy
� Secondary to sepsis along with most likely delirium
� Monitor with resuscitation, now that extubated
-AAOx3 yet still cant pass speech - resume TF
#Acute on chronic HFrEF:
-due to Afib with RVR + medical noncompliance
-previously had a recovered EF, now EF 15-20%
-ACEi/Aldactone/Coreg/IV Lasix have been on hold with hypotension/cardiogenic shock
-Now off presors
- IV lasix - monitor BPs with fever
-daily wts, I/Os
-cards following
#Respiratory Alkalosis, improved
-Improved on ASV
MELANIA, likely pre-renal, cardiorenal
-due to hypoperfusion due to cardiogenic shock
-improving
Other problems:
Hyponatremia, likely SIADH, mild, trend with diuresis
Mild transaminitis, likely due to congestive hepatopathy - improving
Essential HTN: Continue spironolactone; holding lisinopril due to MELANIA;
Obesity due to excess calories
FULL/Eliquis
Anticipated Discharge: > 48 hours
Subjective/Interval History
-
Date of Service: May 31, 2025
AAOx3, still did not tolerate speech eval
Objective Data
-
Labs:
Laboratory Results
05/31/25
04:43
WBC 14.8 H
Hgb 14.3
Hct 44.8
Plt Count 195 D
Sodium 140
Potassium 4.6
Chloride 102
Carbon Dioxide 31 H
BUN 46 H
Creatinine 0.9
Glucose 112 H
Calcium 8.7
Total Bilirubin 1.6 H
AST 25
ALT 52 H
Alkaline Phosphatase 105
Vital Signs:
Vital Signs
Temp Pulse Resp BP Pulse Ox
98.1 F 105 24 103/61 96
05/31/25 07:40 05/31/25 13:00 05/31/25 13:00 05/31/25 12:00 05/31/25 13:00
I&O
05/30/25 05/31/25 06/01/25
06:59 06:59 06:59
Intake Total 876.3 / 876.3
Output Total 2074 1450 / 1450 700 / 700
Balance -1198.7 / -1298.7 -1450 / -1450 -700 / -700
Review of Systems
-
History Source: Patient
All other systems: Not reviewed unless documented
Data Reviewed
-
Diagnostic Radiology: Report Reviewed by me
Labs: Labs Reviewed by me
--- NOTE | 2025-05-31 16:52 | PTCARENOTE ---
Pt pulled out dobhoff tube. New dht inserted and waiting for chest xray for placement. Hospitalist made aware and will order for pt to be placed back in b/l mitts.
[2025-05-31] MEDS: SENOKOT-S TUBE (20:43)
--- NOTE | 2025-05-31 21:18 | PTCARENOTE ---
Received pt from [facility]. Pt remains in B/L mitts. DHT in R nare, CXR not read yet. Radiology called, was told to reach out to furnace combustion analyst radiologist. Radiologist Arsalan tomlinson texted at 20:30, who was able to read CXR immediately. Once
results uploaded to [email or web address] and reviewed, guide wire removed and tube feeds resumed around 21:00 at a rate of 20ml/hr with a goal rate of 55ml/hr. Meds given through the tube as ordered. Pt remains aaox2-3, forgetful. Bed alarm on, though pt makes
no attempts to get OOB. Remains afib on the monitor, HR 90-100. VSS. Care ongoing.
[2025-06-01] VITALS (14 sets, daily range): BP systolic 102–122; BP diastolic 59–100; BMI 26.4
[2025-06-01] MEDS: MAXIPIME 1000 MG IV ×5 (01:03→23:30)
[2025-06-01] MEDS: STERILE WATER FOR INJECTION 10 ML IV ×5 (01:04→23:30)
[2025-06-01] MEDS: MELATONIN 5 MG TUBE (03:04)
[2025-06-01 05:54] LABS: Hematocrit 43.9 % (39.0-52.0); Hemoglobin 13.9 g/dL (13.0-18.0); Mean Corp Hgb Conc. 31.7 g/dL (33.0-37.0); Mean Corpuscular Volume 96.7 fL (80.0-94.0); Platelet Count 221 10^3/uL (130-400); Red Cell Dist. Width 15.5 % (11.5-14.5)
[2025-06-01 06:07] LABS: ALT (SGPT) 42 U/L (0-50); AST (SGOT) 30 U/L (17-59); Albumin 3.1 g/dl (3.5-5.0); Alkaline Phosphatase 98 U/L (38-126); Blood Urea Nitrogen 53 mg/dl (9-20); Calcium 8.6 mg/dl (8.4-10.2); Carbon Dioxide 32 mmol/L (22-30); Chloride 101 mmol/L (98-107); Estimated Creatinine Clearance 85 ml/min; Glucose 139 mg/dl (70-99); Magnesium 2.7 mg/dl (1.6-2.3); Potassium 4.3 mmol/L (3.5-5.1); Sodium 139 mmol/L (135-145); Total Protein 5.8 g/dl (6.3-8.2); eGFR > 60.00
[2025-06-01] MEDS: PACERONE 200 MG TUBE ×2 (09:21→19:34)
[2025-06-01] MEDS: SENOKOT-S 2 TABLET TUBE (09:21)
[2025-06-01] MEDS: ELIQUIS 5 MG TUBE ×2 (09:21→19:34)
[2025-06-01] MEDS: COREG 6.25 MG TUBE ×2 (09:22→19:34)
[2025-06-01] MEDS: ZESTRIL 5 MG PO (09:22)
[2025-06-01] MEDS: MIRALAX TUBE (09:22)
[2025-06-01] MEDS: LASIX 40 MG IV (09:22)
--- NOTE | 2025-06-01 09:48 | VATNOTE ---
Routine Rounds - obtained peripheral access and spoke to MD team to review indication for PICC line. Verified by MD that will remove PICC once peripheral access obtained. Awaiting MD order for PICC line removal.
--- NOTE | 2025-06-01 10:04 | W.PN.CARDCBS ---
Today's Communication / Plan
-
Maintain current rate control strategy and maintain current diuresis.
Impression / Plan
-
PCP: Dr. Baldwin
Digital Sales Director: Dr Donaldson
Assessment:
AFib RVR
Acute heart failure with reduced EF, possibly tachycardia mediated
Transient cardiogenic shock in the setting of IV diltiazem, requiring pressors, calcium, glucagon
Elevated troponin
Nonischemic cardiomyopathy
HTN
Hyperglycemia
Leukocytosis
Previous cardiovascular testing:
Left heart cath 05/05/2023: Normal coronary arteries
Echo 02/06/2023: EF 41%, mild to moderate MR
Echo 06/29/2023: EF 51%
Echo 05/24/2025: EF 15 to 20%, top normal LV, possible inferior akinesis with severe global hypokinesis, moderate MR, MAC, dilated left atrium, aortic sclerosis, borderline dilated RV with hypokinesis and dilated RA, pulmonary artery pressure was 33
at the time of the study
Plan:
Now extubated. but in restraints.
He remains in atrial fibrillation with modestly elevated rates but better controlled over the last 24 hours.
Coreg was increased to Coreg to 6.25 mg p.o. twice daily starting 05/30/2025, continue at this dose and reassess heart rate control
Remains on digoxin
Amiodarone was reduced from 400 mg 3 times daily to 200 mg twice daily on May 30, 2025
Avoid calcium blockers given systolic dysfunction.
Maintain Eliquis for atrial fibrillation related thromboembolic risk reduction
Heart failure with reduced ejection fraction
Lasix 40 mg IV daily for volume overload
Weight down 10 pounds (?)05/30 -> 05/31 and stable over the last 24 hours with a weight of 179 pounds 9 ounces.
Fluid balance was -1350 mL on 05/30 - > 05/31 and no fluid output recorded overnight into this morning.
Creatinine is stable but BUN/creatinine ratio has been steadily rising (BUN 44->46->53), potassium 4.3 and magnesium 2.7
If blood pressure remains stable would consider adding lisinopril and spironolactone back over next 24 to 48 hours
Continue antibiotics for pneumonia per primary service and infectious disease
Low-level troponin elevation noted (on 05/23 and 05/24 trops 0.056, 0.064, 0.071)
Nonspecific ST/T wave changes on ECG are similar to prior tracings
Left heart catheterization in 2022 with normal coronaries
Overall suspect nonischemic myocardial injury troponin elevation due to acute heart failure and A-fib RVR
At this point we have no plan for ischemic evaluation.
Total time spent today was 50 minutes in preparing to see the patient, seeing the patient and coordination of care. This included review of recent laboratory evaluations, cardiact testing, imaging studies, primary care rtecords, specialty
consultations, hospital records, as well as personally interviewing and examining the patient, which included discussion of their tests, review/ordering medications, and communicating with other healthcare professionals and also treatment planning
as well as counseling.
Progress Note - Digital Sales Director
Subjective
Date of Service: June 01, 2025
Denies chest pain shortness of breath palpitations or dizziness. Tells me that he is looking forward to getting the NG tube out and getting something to eat.
Objective
Labs:
06/01/25 05:19
06/01/25 05:19
Labs
Hgb 13.9 g/dL (13.0-18.0) 06/01/25 05:19
Hct 43.9 % (39.0-52.0) 06/01/25 05:19
Plt Count 221 10^3/uL (130-400) 06/01/25 05:19
PT 20.2 Sec (11.4-14.6) H 05/24/25 12:43
INR 1.70 05/24/25 12:43
APTT 27.8 Sec (23.4-35.0) 05/24/25 12:43
Sodium 139 mmol/L (135-145) 06/01/25 05:19
Potassium 4.3 mmol/L (3.5-5.1) 06/01/25 05:19
BUN 53 mg/dl (9-20) H 06/01/25 05:19
Creatinine 0.9 mg/dL (0.7-1.3) 06/01/25 05:19
Glucose 139 mg/dl (70-99) H 06/01/25 05:19
Digoxin < 0.4 ng/ml (0.8-2.0) L 05/30/25 07:33
Vital Signs and I&O:
Vital Signs
Temp Pulse Resp BP Pulse Ox
98.0 F 101 27 105/79 99
06/01/25 04:09 06/01/25 09:22 06/01/25 07:00 06/01/25 09:22 06/01/25 07:00
Vital Signs
Temp Pulse Resp BP Pulse Ox
98.0 F 101 27 105/79 99
06/01/25 04:09 06/01/25 09:22 06/01/25 07:00 06/01/25 09:22 06/01/25 07:00
Intake & Output
05/30/25 05/31/25 06/01/25 06/02/25
06:59 06:59 06:59 06:59
Intake Total 876.3 / 876.3 240 / 240
Output Total 2075 / 2175 1450 / 1450 700 / 700
Balance -1198.7 / -1298.7 -1450 / -1450 -460 / -460
Physical Exam
Physical Exam
In bed, restraints on, NG tube in place
Appears comfortable
Irregularly irregular mildly tachycardic with normal S1 and S2, no S3 no S4 grade 1/6 apical systolic murmur no rubs
Abdomen is soft and nondistended, nontender
Lungs are clear to auscultation anteriorly bilaterally
Extremities with +1 lower extremity edema bilaterally
[2025-06-01] MEDS: LANOXIN 125 MCG TUBE (12:36)
--- NOTE | 2025-06-01 14:22 | W.PN.HOSP.TC ---
Today's Communication/Plan
-
iv lasix, anticipating switching to PO within 24-48 hours
Abx
Speech eval, cont TF in the interim
Assessment / Plan
Assessment / Plan
Gen: NAD, AAOx3.
Eyes: EOMI, PERRLA, no scleral icterus.
Neck: supple.
CV: tachy, irreg/irreg, +S1/S2, no m/r/g.
Resp: dec BS in the bases
Abd: +BS, soft, NT, ND
Skin: No rashes. 1+ B/L LE edema R>L
Neuro: CN 2-12 intact, non-focal.
Psych: Normal mood and affect.
CXR: Interstitial pulmonary edema with small bilateral pleural effusions.
Echo:
1. Top normal left ventricular size with severe global hypokinesis, EF 15 to 20% with possible akinesis of the inferior segments
2. Thickened mitral leaflets, moderate mitral regurgitation, mitral annular calcification, and dilated left atrium
3. Aortic sclerosis without stenosis or regurgitation
4. Borderline dilated right ventricle with hypokinesis and dilated right atrium, mild tricuspid regurgitation, pulmonary artery systolic pressure 33mmHg
In June 2023, the ejection fraction was 51%. The apical septum was akinetic there is mild mitral regurgitation.
CXR 05/25/25: Progressed prominence of the central vasculature and opacification lower lung roberts concerning for pulmonary edema. Bilateral pneumonia and pleural effusions cannot be excluded. Cardiomegaly. Stable.
CT brain: No acute intracranial abnormality noted.
CTA head/neck: No evidence of acute vascular pathology. No M1 nor M2 occlusion. Right vertebral artery pathology as described above. Unclear if chronic/congenital or acute. Large bilateral pleural effusions. New. Moderate bilateral lower lobe
consolidation. This may represent pneumonia or atelectasis. New. Multilevel degenerative disc disease.
Ventilator dependent respiratory failure
� In setting of unresponsiveness, hypotension/bradycardia;
�CT imaging with no evidence of severe vascular occlusion
� Neurology was on board
� propofol, fentanyl, switch to Precedex for extubation
� Successfully extubated 05/29 evening, tolerating well
-IC/Acapella
#Sepsis improving
-concern for developing VAP
-Cultures: Moraxella catarrhalis
-on Cefepime
--Neg MRSA
-monitor fever curve, wbc
#Atrial fibrillation with RVR:
-s/p LENARD/cardioversion January 2023, CV February 2023, started on Amio 01/2023
-h/o GIB due to hemorrhoids
-in the past pt did not want to have ablation
-was on a Cardizem gtt. On 05/24/25 pt developed bradycardia and hypotension while on the Cardizem drip, received 1mg epi, was intubated for airway protection. BB/ACEi/Aldactone held for hypotension.
-Mechanically ventilated, Goal RASS 0 to -2 (but arousable)
-cont eliquis
�Amiodarone
� digoxin
-Coreg, increase as needed
#Acute metabolic encephalopathy
� Secondary to sepsis along with most likely delirium
� Monitor with resuscitation, now that extubated
-AAOx3 yet still cant pass speech - resume TF - daily speech eval
#Acute on chronic HFrEF:
-due to Afib with RVR + medical noncompliance
-previously had a recovered EF, now EF 15-20%
-ACEi/Aldactone/Coreg/IV Lasix have been on hold with hypotension/cardiogenic shock
-Now off presors
- IV lasix - monitor BPs with fever -bun trending up - anticipating switching to PO lasix within 24 -48 hours
-daily wts, I/Os
-cards following
#Respiratory Alkalosis, improved
-Improved on ASV
MELANIA, likely pre-renal, cardiorenal
-due to hypoperfusion due to cardiogenic shock
-improving
Other problems:
Hyponatremia, likely SIADH, mild, trend with diuresis
Mild transaminitis, likely due to congestive hepatopathy - improving
Essential HTN: holding spironolactone; holding lisinopril due to MELANIA;
Obesity due to excess calories
FULL/Eliquis
Anticipated Discharge: 24 - 48 hours
Subjective/Interval History
-
Date of Service: June 01, 2025
Appears a bit stronger today, still in restraints
Objective Data
-
Labs:
Laboratory Results
06/01/25
05:19
WBC 12.5 H
Hgb 13.9
Hct 43.9
Plt Count 221
Sodium 139
Potassium 4.3
Chloride 101
Carbon Dioxide 32 H
BUN 53 H
Creatinine 0.9
Glucose 139 H
Calcium 8.6
Total Bilirubin 1.2
AST 30
ALT 42
Alkaline Phosphatase 98
Vital Signs:
Vital Signs
Temp Pulse Resp BP Pulse Ox
98.0 F 89 14 120/94 98
06/01/25 04:09 06/01/25 12:36 06/01/25 10:00 06/01/25 10:00 06/01/25 11:33
I&O
05/31/25 06/01/25 06/02/25
06:59 06:59 06:59
Intake Total 240 / 240
Output Total 1450 / 1450 700 / 700
Balance -1450 / -1450 -460 / -460
Review of Systems
-
History Source: Patient
All other systems: Not reviewed unless documented
Data Reviewed
-
Diagnostic Radiology: Report Reviewed by me
Labs: Labs Reviewed by me
--- NOTE | 2025-06-01 15:50 | PTCARENOTE ---
Rec'd pt this AM. very confused, even with restraints makes efforts to pull out DHT. Requires frequent re-orientation and redirection. constantly requesting ice chips. Provided by staff as appropriate. VS stable. Sister visited at bedside.
[2025-06-01] MEDS: SENOKOT-S TUBE (19:34)
--- NOTE | 2025-06-01 21:25 | PTCARENOTE ---
Pt remains in B/L wrist restraints. DHT in R nare. Tube feedings increased to goal rate of 55ml/hr. Prosource given with PM meds through tube. Ice chips provided sparingly. Pt incontinent of multiple bowel movements today, pm inna held. Remains
on IV cefepime. VSS. Care ongoing.
[2025-06-01] MEDS: DESYREL 12.5 MG PO (23:30)
[2025-06-02] VITALS (18 sets, daily range): BP systolic 94–128; BP diastolic 51–97; PULSE 91–95; O2SAT 97–98; BMI 25.8
[2025-06-02] MEDS: MAXIPIME 1000 MG IV ×4 (06:30→23:00)
[2025-06-02] MEDS: STERILE WATER FOR INJECTION 10 ML IV ×4 (06:30→23:00)
[2025-06-02 06:55] LABS: Hematocrit 46.7 % (39.0-52.0); Hemoglobin 14.9 g/dL (13.0-18.0); Mean Corp Hgb Conc. 31.9 g/dL (33.0-37.0); Mean Corpuscular Volume 96.1 fL (80.0-94.0); Platelet Count 238 10^3/uL (130-400); Red Cell Dist. Width 15.2 % (11.5-14.5)
[2025-06-02 07:16] LABS: ALT (SGPT) 44 U/L (0-50); AST (SGOT) 32 U/L (17-59); Albumin 3.5 g/dl (3.5-5.0); Alkaline Phosphatase 106 U/L (38-126); Blood Urea Nitrogen 55 mg/dl (9-20); Calcium 8.9 mg/dl (8.4-10.2); Carbon Dioxide 32 mmol/L (22-30); Chloride 101 mmol/L (98-107); Estimated Creatinine Clearance 96 ml/min; Glucose 156 mg/dl (70-99); Magnesium 2.7 mg/dl (1.6-2.3); Potassium 4.1 mmol/L (3.5-5.1); Sodium 140 mmol/L (135-145); Total Protein 6.5 g/dl (6.3-8.2); Triglycerides 101 mg/dl (10-149); eGFR > 60.00
[2025-06-02] MEDS: MIRALAX TUBE (08:10)
[2025-06-02] MEDS: SENOKOT-S TUBE ×2 (08:11→21:01)
[2025-06-02] MEDS: ZESTRIL PO (08:41)
[2025-06-02] MEDS: PACERONE 200 MG TUBE ×2 (08:42→21:00)
[2025-06-02] MEDS: COREG 6.25 MG TUBE ×2 (08:42→21:00)
[2025-06-02] MEDS: ELIQUIS 5 MG TUBE ×2 (08:43→21:00)
[2025-06-02] MEDS: LASIX 40 MG IV (10:11)
--- NOTE | 2025-06-02 11:19 | W.PN.CARDCBS ---
Today's Communication / Plan
-
Cont IV diuresis
Impression / Plan
-
.
PCP: Dr. Baldwin
Securities Supervisor: Dr Donaldson
Impression:
AFib RVR
Acute heart failure with reduced EF, possibly tachycardia mediated
Transient cardiogenic shock in the setting of IV diltiazem, requiring pressors, calcium, glucagon
Elevated troponin, likely nonMI troponin elevation
Nonischemic cardiomyopathy
HTN
Hyperglycemia
Leukocytosis
Previous cardiovascular testing:
Left heart cath 05/05/2023: Normal coronary arteries
Echo 02/06/2023: EF 41%, mild to moderate MR
Echo 06/29/2023: EF 51%
Echo 05/24/2025: EF 15 to 20%, top normal LV, possible inferior akinesis with severe global hypokinesis, moderate MR, MAC, dilated left atrium, aortic sclerosis, borderline dilated RV with hypokinesis and dilated RA, pulmonary artery pressure was 33
at the time of the study
Plan:
Remains in atrial fibrillation with modestly elevated rates but better controlled over the last 24 hours.
Cont Coreg (was increased to Coreg to 6.25 mg p.o. twice daily starting 05/30/2025)
Cont Digoxin
Cont Amiodarone, which was reduced from 400 mg 3 times daily to 200 mg twice daily on May 30, 2025
Avoid calcium blockers given systolic dysfunction.
Maintain Eliquis for atrial fibrillation related thromboembolic risk reduction
Heart failure with reduced ejection fraction
Lasix 40 mg IV daily for volume overload
Weight continues to come down
Cont negative Is and Os.
Cr remains stable. BUN was steadily rising.
Cont ACEI and consider Aldactone over next 24 hrs.
Continue antibiotics for pneumonia per primary service and infectious disease
Cont medical therapy of nonMI troponin (Low-level troponin elevation noted on 05/23 and 05/24 0.056, 0.064, 0.071)
Nonspecific ST/T wave changes on ECG are similar to prior tracings
Left heart catheterization in 2022 with normal coronaries
Likely nonischemic myocardial injury troponin elevation due to acute heart failure and A-fib RVR
No plans currently for ischemic evaluation, could consider as outpt.
Progress Note - Securities Supervisor
Subjective
Date of Service: June 02, 2025
Pt seen and examined. Breathing improved.
Objective
Labs:
06/02/25 06:28
06/02/25 06:28
Labs
Hgb 14.9 g/dL (13.0-18.0) 06/02/25 06:28
Hct 46.7 % (39.0-52.0) 06/02/25 06:28
Plt Count 238 10^3/uL (130-400) 06/02/25 06:28
PT 20.2 Sec (11.4-14.6) H 05/24/25 12:43
INR 1.70 05/24/25 12:43
APTT 27.8 Sec (23.4-35.0) 05/24/25 12:43
Sodium 140 mmol/L (135-145) 06/02/25 06:28
Potassium 4.1 mmol/L (3.5-5.1) 06/02/25 06:28
BUN 55 mg/dl (9-20) H 06/02/25 06:28
Creatinine 0.8 mg/dL (0.7-1.3) 06/02/25 06:28
Glucose 156 mg/dl (70-99) H 06/02/25 06:28
Digoxin < 0.4 ng/ml (0.8-2.0) L 05/30/25 07:33
Vital Signs and I&O:
Vital Signs
Temp Pulse Resp BP Pulse Ox
97.7 F 90 20 113/65 97
06/02/25 11:18 06/02/25 10:11 06/02/25 10:00 06/02/25 10:11 06/02/25 10:20
Vital Signs
Temp Pulse Resp BP Pulse Ox
97.7 F 90 20 113/65 97
06/02/25 11:18 06/02/25 10:11 06/02/25 10:00 06/02/25 10:11 06/02/25 10:20
Intake & Output
05/31/25 06/01/25 06/02/25 06/03/25
06:59 06:59 06:59 06:59
Intake Total 240 / 240 1989 / 1989 480 / 480
Output Total 1450 / 1450 700 / 700 1650 / 1650 200 / 200
Balance -1450 / -1450 -460 / -460 340 / 340 280 / 280
Physical Exam
Physical Exam
General: No acute distress, AAOX3
Neck: Negative JVD
Heart: Irregularly irregular, Negative S3 positive S1/S2, Negative S4, No murmur
Lungs: Negative wheezes/rales/rhonchi
Abd: Positive BS, NT/ND, neg rebound/rigidity/guarding
Ext: Negative cyanosis/clubbing/edema
Neuro: nonfocal
[2025-06-02] MEDS: LANOXIN 125 MCG TUBE (11:46)
--- NOTE | 2025-06-02 12:03 | W.PN.HOSP.TC ---
Today's Communication/Plan
-
see plan
Assessment / Plan
Assessment / Plan
Gen: NAD, Awake and alert
Eyes: EOMI, PERRLA, no scleral icterus.
Neck: supple.
CV: irreg/irreg, +S1/S2, no m/r/g.
Resp: CTAB anteriorly, no rales, wheezes, or rhonchi.
Abd: +BS, soft, NT, ND
Skin: No rashes.
Neuro: CN 2-12 intact, non-focal.
Psych: Normal mood and affect.
05/28/25 09:22 Blood/Venous Blood Culture - Final
No Growth - Final Report
05/27/25 12:13 Blood/Venous Blood Culture - Final
No Growth - Final Report
05/27/25 12:13 Blood/Venous Blood Culture - Final
No Growth - Final Report
05/28/25 21:42 Tracheal Aspirate Respiratory Culture - Final
NO GROWTH
05/28/25 21:42 Tracheal Aspirate Gram Stain - Final
05/27/25 11:40 Tracheal Aspirate Respiratory Culture - Final
Moraxella catarrhalis
05/27/25 11:40 Tracheal Aspirate Gram Stain - Final
05/27/25 11:39 Nose Nasal Screen MRSA (PCR) - Final
MRSA not detected - performed by PCR methodology.
05/24/25 13:48 Endotracheal Respiratory Culture - Final
Usual Respiratory Viviane
05/24/25 13:48 Endotracheal Gram Stain - Final
CXR: Interstitial pulmonary edema with small bilateral pleural effusions.
Echo:
1. Top normal left ventricular size with severe global hypokinesis, EF 15 to 20% with possible akinesis of the inferior segments
2. Thickened mitral leaflets, moderate mitral regurgitation, mitral annular calcification, and dilated left atrium
3. Aortic sclerosis without stenosis or regurgitation
4. Borderline dilated right ventricle with hypokinesis and dilated right atrium, mild tricuspid regurgitation, pulmonary artery systolic pressure 33mmHg
In June 2023, the ejection fraction was 51%. The apical septum was akinetic there is mild mitral regurgitation.
CXR 05/25/25: Progressed prominence of the central vasculature and opacification lower lung roberts concerning for pulmonary edema. Bilateral pneumonia and pleural effusions cannot be excluded. Cardiomegaly. Stable.
CT brain: No acute intracranial abnormality noted.
CTA head/neck: No evidence of acute vascular pathology. No M1 nor M2 occlusion. Right vertebral artery pathology as described above. Unclear if chronic/congenital or acute. Large bilateral pleural effusions. New. Moderate bilateral lower lobe
consolidation. This may represent pneumonia or atelectasis. New. Multilevel degenerative disc disease.
Ventilator dependent respiratory failure:
-due to unresponsive episode due to Cardizem toxicity causing bradycardia and hypotension (cardiogenic shock) on 05/24/25
-extubated 05/29/25
-neuro saw in c/s, no evidence of CVA, imaging above
�CT imaging with no evidence of severe vascular occlusion
Sepsis due to purulent tracheobronchitis:
-with acute metabolic encephalopathy due to sepsis
-tracheal aspirate Cx 05/27/25 with Moraxella catarrhalis
-tracheal aspirate Cx 05/28/25 ND
-Cefepime started 05/27/25AM
-last fever 05/29/25PM, leukocytosis improving
-discussed with pulm, will stop Cefepime after 06/03/25AM dose which will complete 7 days
Atrial fibrillation with RVR:
-s/p LENARD/cardioversion January 2023, CV February 2023, started on Amio 01/2023
-h/o GIB due to hemorrhoids
-in the past pt did not want to have ablation
-was on a Cardizem gtt. On 05/24/25 pt developed bradycardia and hypotension while on the Cardizem drip, received 1mg epi, was intubated for airway protection. BB/ACEi/Aldactone held for hypotension at the time.
-coreg now resumed
-cont eliquis/amio/Dig
Acute on chronic HFrEF:
-due to Afib with RVR + medical noncompliance
-previously had a recovered EF, now EF 15-20%
-ACEi/Aldactone/Coreg/IV Lasix were on hold with hypotension/cardiogenic shock
-was on vasopressors for cardiogenic shock, now off pressors
-cont IV lasix
-daily wts, I/Os
-cards following
Other problems:
Respiratory Alkalosis, resolved
MELANIA due to CRS, resolved
Hyponatremia, likely SIADH, was mild, now resolved
Mild transaminitis, likely due to congestive hepatopathy, resolved
Essential HTN: cont BB/ACEi
FULL/Eliquis
Total time spent on today's encounter was 50 minutes which included time spent in counseling the patient/family regarding diagnosis and treatment plan as listed above, goals of care, and symptom management. Case was discussed with nursing staff,
specialists, and care coordinators/case management. All labs and imaging personally reviewed by me. Remainder the time spent in detailed review of previous records, lab data, imaging, and other medical provider documentation.
Anticipated Discharge: > 48 hours
Subjective/Interval History
-
Date of Service: June 02, 2025
currently denies CP/SOB.
Objective Data
-
Labs:
Laboratory Results
06/02/25
06:28
WBC 12.3 H
Hgb 14.9
Hct 46.7
Plt Count 238
Sodium 140
Potassium 4.1
Chloride 101
Carbon Dioxide 32 H
BUN 55 H
Creatinine 0.8
Glucose 156 H
Calcium 8.9
Total Bilirubin 1.2
AST 32
ALT 44
Alkaline Phosphatase 106
Vital Signs:
Vital Signs
Temp Pulse Resp BP Pulse Ox
97.7 F 109 20 113/65 97
06/02/25 11:18 06/02/25 11:46 06/02/25 10:00 06/02/25 10:11 06/02/25 10:20
I&O
06/01/25 06/02/25 06/03/25
06:59 06:59 06:59
Intake Total 240 / 240 1989 / 1989 480 / 480
Output Total 700 / 700 1650 / 1650 400 / 400
Balance -460 / -460 340 / 340 80 / 80
[2025-06-02] MEDS: ZESTRIL 5 MG PO (14:25)
--- NOTE | 2025-06-02 14:37 | PTCARENOTE ---
Dobhoff removed per MD order. Patient tolerated. Care ongoing.
--- NOTE | 2025-06-02 14:47 | CM ---
B/L pleural effusions. IV/Lasix. IV/Cefepime. Discharge POC: Therapy rec for SNF. Spoke with sister whose preferences are: [facility]. Referrals forwarded.
--- NOTE | 2025-06-02 17:12 | PTCARENOTE ---
Patient AOx2 (self and place). Patient is forgetful. Bed and chair alarm on and audible. Needs frequent reminders to not pull on heart monitor and to not get OOB without staff assistance. On RA with SpO2 greater than 92%. Tolerating oral diet.
Assist x1 with RW when OOB. Utilizes urinal. Call moreira within reach, bed in lowest position, and bed of wheels locked.
--- NOTE | 2025-06-02 17:35 | W.PN.UPDATE ---
Update Note
Progress Note Update
Called and talked with patient's sister by phone for 17 minutes. Reviewed admission thus far. Talked about PMH including admission in 2022. Talked about current ST report and plans for rehab. Talked about possible eventual LENARD?CV. Talked about
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 Talked about [facility] paperwork.
[2025-06-02] MEDS: DESYREL 12.5 MG PO (21:00)
--- NOTE | 2025-06-02 23:50 | PTCARENOTE ---
Pt off restraints since DHT has been removed. Pt took meds whole in applesauce with no difficulty, no cough upon oral intake. aaox3 with periods of confusion/forgetfulness. Call moreira in reach, bed alarm on, VSS, care ongoing.
[2025-06-03] VITALS (15 sets, daily range): BP systolic 97–130; BP diastolic 52–107; PULSE 88; BMI 25.8
--- NOTE | 2025-06-03 05:23 | DOWNTIME ---
There was a [employer] Client Online Education Manager Downtime on 06/03/2025 from 0100 to 06/03/2025 at 0220. Downtime documentation of patient's care, including medication administrations, has been reconciled in the electronic record per guidelines. Refer to the
patient's paper chart under the miscellaneous tab to see printed paper medication records and downtime forms.
[2025-06-03] MEDS: STERILE WATER FOR INJECTION 10 ML IV (05:36)
[2025-06-03] MEDS: MAXIPIME 1000 MG IV (05:36)
[2025-06-03 06:19] LABS: Hematocrit 43.7 % (39.0-52.0); Hemoglobin 14.1 g/dL (13.0-18.0); Mean Corp Hgb Conc. 32.3 g/dL (33.0-37.0); Mean Corpuscular Volume 95.4 fL (80.0-94.0); Platelet Count 256 10^3/uL (130-400); Red Cell Dist. Width 15.3 % (11.5-14.5)
[2025-06-03 06:39] LABS: ALT (SGPT) 39 U/L (0-50); AST (SGOT) 28 U/L (17-59); Albumin 3.2 g/dl (3.5-5.0); Alkaline Phosphatase 98 U/L (38-126); Blood Urea Nitrogen 45 mg/dl (9-20); Calcium 8.4 mg/dl (8.4-10.2); Carbon Dioxide 31 mmol/L (22-30); Chloride 99 mmol/L (98-107); Estimated Creatinine Clearance 96 ml/min; Glucose 106 mg/dl (70-99); Magnesium 2.4 mg/dl (1.6-2.3); Potassium 4.3 mmol/L (3.5-5.1); Sodium 135 mmol/L (135-145); Total Protein 5.9 g/dl (6.3-8.2); eGFR > 60.00
[2025-06-03] MEDS: MIRALAX TUBE (08:25)
[2025-06-03] MEDS: SENOKOT-S TUBE (08:25)
[2025-06-03] MEDS: ZESTRIL 5 MG PO (08:28)
[2025-06-03] MEDS: PACERONE 200 MG TUBE ×2 (08:28→19:18)
[2025-06-03] MEDS: ELIQUIS 5 MG TUBE ×2 (08:28→19:17)
[2025-06-03] MEDS: LASIX 40 MG IV (08:28)
[2025-06-03] MEDS: COREG 6.25 MG TUBE ×2 (08:28→19:15)
--- NOTE | 2025-06-03 09:29 | W.PN.CARDCBS ---
Today's Communication / Plan
-
Consideration for LENARD/cv later this week
Cont IV lasix
Impression / Plan
-
.
PCP: Dr. Baldwin
Heart Nurse: Dr Donaldson
Impression:
AFib RVR
Acute heart failure with reduced EF, possibly tachycardia mediated
Transient cardiogenic shock in the setting of IV diltiazem, requiring pressors, calcium, glucagon
Elevated troponin, likely nonMI troponin elevation
Nonischemic cardiomyopathy
HTN
Hyperglycemia
Leukocytosis
Previous cardiovascular testing:
Left heart cath 05/05/2023: Normal coronary arteries
Echo 02/06/2023: EF 41%, mild to moderate MR
Echo 06/29/2023: EF 51%
Echo 05/24/2025: EF 15 to 20%, top normal LV, possible inferior akinesis with severe global hypokinesis, moderate MR, MAC, dilated left atrium, aortic sclerosis, borderline dilated RV with hypokinesis and dilated RA, pulmonary artery pressure was 33
at the time of the study
Plan:
Remains in atrial fibrillation with modestly elevated rates but better controlled over the last 24 hours.
Cont Coreg (was increased to Coreg to 6.25 mg p.o. twice daily starting 05/30/2025)
Cont Digoxin
Cont Amiodarone, which was reduced from 400 mg 3 times daily to 200 mg twice daily on May 30, 2025
Avoid calcium blockers given systolic dysfunction.
Maintain Eliquis for atrial fibrillation related thromboembolic risk reduction
Discussed that given he has worsened CM likely tachycardia mediated that he may benefit from LENARD/CV prior to d/c
Heart failure with reduced ejection fraction
Lasix 40 mg IV daily for volume overload
Weight continues to come down
Cont negative Is and Os.
Cr remains stable. BUN was steadily rising now has flattened
Cont ACEI
Consider Aldactone if bp can tolerate over next 24 hrs.
Continue antibiotics for pneumonia per primary service and infectious disease
Cont medical therapy of nonMI troponin (Low-level troponin elevation noted on 05/23 and 05/24 0.056, 0.064, 0.071)
Nonspecific ST/T wave changes on ECG are similar to prior tracings
Left heart catheterization in 2022 with normal coronaries
Likely nonischemic myocardial injury troponin elevation due to acute heart failure and A-fib RVR
No plans currently for ischemic evaluation, could consider as outpt.
Discussed with nursing
Sister has been updated last 24 hrs. 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
Progress Note - Heart Nurse
Subjective
Date of Service: June 03, 2025
Pt seen and examined. No cp or dyspnea.
Objective
Labs:
06/03/25 05:50
06/03/25 05:50
Labs
Hgb 14.1 g/dL (13.0-18.0) 06/03/25 05:50
Hct 43.7 % (39.0-52.0) 06/03/25 05:50
Plt Count 256 10^3/uL (130-400) 06/03/25 05:50
PT 20.2 Sec (11.4-14.6) H 05/24/25 12:43
INR 1.70 05/24/25 12:43
APTT 27.8 Sec (23.4-35.0) 05/24/25 12:43
Sodium 135 mmol/L (135-145) 06/03/25 05:50
Potassium 4.3 mmol/L (3.5-5.1) 06/03/25 05:50
BUN 45 mg/dl (9-20) H 06/03/25 05:50
Creatinine 0.8 mg/dL (0.7-1.3) 06/03/25 05:50
Glucose 106 mg/dl (70-99) H 06/03/25 05:50
Digoxin < 0.4 ng/ml (0.8-2.0) L 05/30/25 07:33
Vital Signs and I&O:
Vital Signs
Temp Pulse Resp BP Pulse Ox
97.6 F 83 27 109/94 96
06/03/25 07:20 06/03/25 08:28 06/03/25 08:00 06/03/25 08:28 06/03/25 08:00
Vital Signs
Temp Pulse Resp BP Pulse Ox
97.6 F 83 27 109/94 96
06/03/25 07:20 06/03/25 08:28 06/03/25 08:00 06/03/25 08:28 06/03/25 08:00
Intake & Output
06/01/25 06/02/25 06/03/25 06/04/25
06:59 06:59 06:59 06:59
Intake Total 240 / 240 1989 / 1989 1520 / 1520
Output Total 700 / 700 1650 / 1650 700 / 700 150 / 150
Balance -460 / -460 340 / 340 820 / 820 -150 / -150
Physical Exam
Physical Exam
General: No acute distress, AAOX3
Neck: Negative JVD
Heart: Irregularlyi irregular, Negative S3 positive S1/S2, Negative S4, No murmur
Lungs: CTA b/l, negative wheezes/rales/rhonchi
Abd: Positive BS, NT/ND, neg rebound/rigidity/guarding
Ext: Negative cyanosis/clubbing/edema
Neuro: nonfocal
--- NOTE | 2025-06-03 10:55 | W.PN.HOSP.TC ---
Today's Communication/Plan
-
see plan
Assessment / Plan
Assessment / Plan
Gen: NAD, Awake and alert
Eyes: EOMI, PERRLA, no scleral icterus.
Neck: supple.
CV: remains irreg/irreg, +S1/S2, no m/r/g.
Resp: remains CTAB anteriorly, no rales, wheezes, or rhonchi.
Abd: remains +BS, soft, NT, ND
Skin: No rashes.
Neuro: CN 2-12 intact, non-focal.
Psych: Normal mood and affect.
05/28/25 09:22 Blood/Venous Blood Culture - Final
No Growth - Final Report
05/27/25 12:13 Blood/Venous Blood Culture - Final
No Growth - Final Report
05/27/25 12:13 Blood/Venous Blood Culture - Final
No Growth - Final Report
05/28/25 21:42 Tracheal Aspirate Respiratory Culture - Final
NO GROWTH
05/28/25 21:42 Tracheal Aspirate Gram Stain - Final
05/27/25 11:40 Tracheal Aspirate Respiratory Culture - Final
Moraxella catarrhalis
05/27/25 11:40 Tracheal Aspirate Gram Stain - Final
05/27/25 11:39 Nose Nasal Screen MRSA (PCR) - Final
MRSA not detected - performed by PCR methodology.
05/24/25 13:48 Endotracheal Respiratory Culture - Final
Usual Respiratory Viviane
05/24/25 13:48 Endotracheal Gram Stain - Final
CXR: Interstitial pulmonary edema with small bilateral pleural effusions.
Echo:
1. Top normal left ventricular size with severe global hypokinesis, EF 15 to 20% with possible akinesis of the inferior segments
2. Thickened mitral leaflets, moderate mitral regurgitation, mitral annular calcification, and dilated left atrium
3. Aortic sclerosis without stenosis or regurgitation
4. Borderline dilated right ventricle with hypokinesis and dilated right atrium, mild tricuspid regurgitation, pulmonary artery systolic pressure 33mmHg
In June 2023, the ejection fraction was 51%. The apical septum was akinetic there is mild mitral regurgitation.
CXR 05/25/25: Progressed prominence of the central vasculature and opacification lower lung roberts concerning for pulmonary edema. Bilateral pneumonia and pleural effusions cannot be excluded. Cardiomegaly. Stable.
CT brain: No acute intracranial abnormality noted.
CTA head/neck: No evidence of acute vascular pathology. No M1 nor M2 occlusion. Right vertebral artery pathology as described above. Unclear if chronic/congenital or acute. Large bilateral pleural effusions. New. Moderate bilateral lower lobe
consolidation. This may represent pneumonia or atelectasis. New. Multilevel degenerative disc disease.
Ventilator dependent respiratory failure:
-due to unresponsive episode due to Cardizem toxicity causing bradycardia and hypotension (cardiogenic shock) on 05/24/25
-extubated 05/29/25
-neuro saw in c/s, no evidence of CVA, imaging above
�CT imaging with no evidence of severe vascular occlusion
Sepsis due to purulent tracheobronchitis:
-with acute metabolic encephalopathy due to sepsis
-tracheal aspirate Cx 05/27/25 with Moraxella catarrhalis
-tracheal aspirate Cx 05/28/25 ND
-Cefepime started 05/27/25AM, stop now as pt has completed 7 days
-last fever 05/29/25PM, leukocytosis improved
Atrial fibrillation with RVR:
-s/p LENARD/cardioversion January 2023, CV February 2023, started on Amio 01/2023
-h/o GIB due to hemorrhoids
-in the past pt did not want to have ablation
-was on a Cardizem gtt. On 05/24/25 pt developed bradycardia and hypotension while on the Cardizem drip, received 1mg epi, was intubated for airway protection. BB/ACEi/Aldactone held for hypotension at the time.
-coreg now resumed
-cont eliquis/amio/Dig
Acute on chronic HFrEF:
-due to Afib with RVR + medical noncompliance
-previously had a recovered EF, now EF 15-20%
-ACEi/Aldactone/Coreg/IV Lasix were on hold with hypotension/cardiogenic shock
-was on vasopressors for cardiogenic shock, now off pressors
-cont IV lasix
-daily wts (down 19kg), I/Os
-possible TEECV later this week as per cards
Other problems:
Respiratory Alkalosis, resolved
MELANIA due to CRS, resolved
Hyponatremia, likely SIADH, was mild, now resolved
Mild transaminitis, likely due to congestive hepatopathy, resolved
Essential HTN: cont BB/ACEi
FULL/Eliquis
Total time spent on today's encounter was 51 minutes which included time spent in counseling the patient/family regarding diagnosis and treatment plan as listed above, goals of care, and symptom management. Case was discussed with nursing staff,
specialists, and care coordinators/case management. All labs and imaging personally reviewed by me. Remainder the time spent in detailed review of previous records, lab data, imaging, and other medical provider documentation.
Anticipated Discharge: > 48 hours
Subjective/Interval History
-
Date of Service: June 03, 2025
Denies CP/SOB.
Objective Data
-
Labs:
Laboratory Results
06/03/25
05:50
WBC 12.4 H
Hgb 14.1
Hct 43.7
Plt Count 256
Sodium 135
Potassium 4.3
Chloride 99
Carbon Dioxide 31 H
BUN 45 H
Creatinine 0.8
Glucose 106 H
Calcium 8.4
Total Bilirubin 1.0
AST 28
ALT 39
Alkaline Phosphatase 98
Vital Signs:
Vital Signs
Temp Pulse Resp BP Pulse Ox
97.6 F 88 30 109/94 96
06/03/25 07:20 06/03/25 10:00 06/03/25 10:00 06/03/25 08:28 06/03/25 08:00
I&O
06/02/25 06/03/25 06/04/25
06:59 06:59 06:59
Intake Total 1989 1520 / 1520
Output Total 1650 / 1650 700 / 700 150 / 150
Balance 340 / 340 820 / 820 -150 / -150
[2025-06-03] MEDS: LANOXIN 125 MCG TUBE (11:40)
--- NOTE | 2025-06-03 15:06 | PTCARENOTE ---
Patient AOx3. Patient is forgetful. Bed and chair alarm on and audible. Rings call moreira appropriately, On RA with SpO2 greater than 92%. A fib on the monitor. BP stable. Tolerating oral diet. Assist x1 with RW when OOB. Utilizes urinal. Aissatou
colored urine. Call moreira within reach, bed in lowest position, and bed of wheels locked.
--- NOTE | 2025-06-03 16:29 | PTOTSP ---
Speech Language Pathology
Pt seen for cognitive-linguistic evaluation via the [employer] Cognitive Assessment (MOCA), version 7.3. Pt with an overall score of 13/30 where normal range is 26-30. Pt with moderate cognitive deficits.
Pt also seen for dysphagia tx. Seen with P.O. trials of puree, regular solids, and thin liquids. Adequate mastication, bolus formation, and A-P transit with no oral residue. Pt denied any globus sensation, but suspect some pharyngeal residue based
on results of FEES completed yesterday. No overt signs of aspiration. Would not consider advancing diet until voice improves, as this is likely a good indicator of improvement of edema.
Recommend:
(1) Continue IDDSI Level 6 (soft/bite-sized) and thin liquids
(2) Aspiration precautions: sit upright, slow rate, single sips, frequent sips of liquids during meals/dry swallows post solids to aid in pharyngeal clearance, partial supervision
(3) Meds whole in puree
(4) Pt would benefit from rehab at discharge. Consider acute rehab if in line with PT/OT needs given dysphagia and cognitive deficits. 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
(5) INSTRUCTIONAL PARAPROFESSIONAL to continue to follow
[2025-06-03] MEDS: SENOKOT-S 2 TABLET TUBE (19:18)
[2025-06-03] MEDS: DESYREL 12.5 MG PO (22:15)
[2025-06-04] VITALS (16 sets, daily range): BP systolic 92–127; BP diastolic 52–103; PULSE 89; BMI 25.8
--- NOTE | 2025-06-04 00:19 | PTCARENOTE ---
Patient AAOx3, although forgetful at times. Pt on RA SpO2 95%. Pt has an occasional moist cough. A-fib the the monitor HR 81. VSS. Pt utilizing the urinal. Assessment and vitals as charted see worklist. Bed alarm on. Pt using the call moreira
appropriately.
[2025-06-04 04:41] LABS: Hematocrit 43.9 % (39.0-52.0); Hemoglobin 14.1 g/dL (13.0-18.0); Mean Corp Hgb Conc. 32.1 g/dL (33.0-37.0); Mean Corpuscular Volume 95.4 fL (80.0-94.0); Platelet Count 262 10^3/uL (130-400); Red Cell Dist. Width 15.2 % (11.5-14.5)
[2025-06-04 05:04] LABS: Magnesium 2.3 mg/dl (1.6-2.3)
--- NOTE | 2025-06-04 05:23 | PTCARENOTE ---
Patient removed L hand IV. IV found in the sheets. Pt does not recall. VAT team placed a new IV site.
--- NOTE | 2025-06-04 07:23 | PTCARENOTE ---
Patient removed R hand IV. IV found on bedside table. Pt does not recall removing IV. New IV placed. Care ongoing.
[2025-06-04] MEDS: PACERONE 200 MG TUBE ×2 (07:25→19:30)
[2025-06-04] MEDS: ZESTRIL 5 MG PO (07:25)
[2025-06-04] MEDS: SENOKOT-S 2 TABLET TUBE ×2 (07:25→19:30)
[2025-06-04] MEDS: COREG 6.25 MG TUBE (07:25)
[2025-06-04] MEDS: ELIQUIS 5 MG TUBE ×2 (07:25→19:29)
[2025-06-04] MEDS: MIRALAX 17 GRAMS TUBE (07:25)
[2025-06-04] MEDS: LASIX 40 MG IV (08:41)
--- NOTE | 2025-06-04 10:27 | PTCARENOTE ---
Assumed plan of care from [id number]. Patient AOx3, but confused at times. Patient is forgetful. Bed and chair alarm on and audible. Rings call moreira appropriately. On RA with SpO2 greater than 92%. A fib with PVC's on the monitor. BP stable.
Tolerating oral diet. Assist x1 with RW when OOB. Utilizes urinal. Large liquid/loose stools. Aissatou colored urine. Call moreira within reach, bed in lowest position, and bed of wheels locked.
--- NOTE | 2025-06-04 10:56 | W.PN.HOSP.TC ---
Today's Communication/Plan
-
see plan
Assessment / Plan
Assessment / Plan
Gen: NAD, Awake and alert
Eyes: EOMI, PERRLA, no scleral icterus.
Neck: supple.
CV: continues to remain irreg/irreg, +S1/S2, no m/r/g.
Resp: continues to remain CTAB anteriorly, no rales, wheezes, or rhonchi.
Abd: continues to remain +BS, soft, NT, ND
Skin: No rashes.
Neuro: CN 2-12 intact, non-focal.
Psych: Normal mood and affect.
05/28/25 09:22 Blood/Venous Blood Culture - Final
No Growth - Final Report
05/27/25 12:13 Blood/Venous Blood Culture - Final
No Growth - Final Report
05/27/25 12:13 Blood/Venous Blood Culture - Final
No Growth - Final Report
05/28/25 21:42 Tracheal Aspirate Respiratory Culture - Final
NO GROWTH
05/28/25 21:42 Tracheal Aspirate Gram Stain - Final
05/27/25 11:40 Tracheal Aspirate Respiratory Culture - Final
Moraxella catarrhalis
05/27/25 11:40 Tracheal Aspirate Gram Stain - Final
05/27/25 11:39 Nose Nasal Screen MRSA (PCR) - Final
MRSA not detected - performed by PCR methodology.
05/24/25 13:48 Endotracheal Respiratory Culture - Final
Usual Respiratory Viviane
05/24/25 13:48 Endotracheal Gram Stain - Final
CXR: Interstitial pulmonary edema with small bilateral pleural effusions.
Echo:
1. Top normal left ventricular size with severe global hypokinesis, EF 15 to 20% with possible akinesis of the inferior segments
2. Thickened mitral leaflets, moderate mitral regurgitation, mitral annular calcification, and dilated left atrium
3. Aortic sclerosis without stenosis or regurgitation
4. Borderline dilated right ventricle with hypokinesis and dilated right atrium, mild tricuspid regurgitation, pulmonary artery systolic pressure 33mmHg
In June 2023, the ejection fraction was 51%. The apical septum was akinetic there is mild mitral regurgitation.
CXR 05/25/25: Progressed prominence of the central vasculature and opacification lower lung roberts concerning for pulmonary edema. Bilateral pneumonia and pleural effusions cannot be excluded. Cardiomegaly. Stable.
CT brain: No acute intracranial abnormality noted.
CTA head/neck: No evidence of acute vascular pathology. No M1 nor M2 occlusion. Right vertebral artery pathology as described above. Unclear if chronic/congenital or acute. Large bilateral pleural effusions. New. Moderate bilateral lower lobe
consolidation. This may represent pneumonia or atelectasis. New. Multilevel degenerative disc disease.
Ventilator dependent respiratory failure:
-due to unresponsive episode due to Cardizem toxicity causing bradycardia and hypotension (cardiogenic shock) on 05/24/25
-extubated 05/29/25
-neuro saw in c/s, no evidence of CVA, imaging above
�CT imaging with no evidence of severe vascular occlusion
Sepsis due to purulent tracheobronchitis:
-with acute metabolic encephalopathy due to sepsis
-tracheal aspirate Cx 05/27/25 with Moraxella catarrhalis
-tracheal aspirate Cx 05/28/25 ND
-Cefepime started 05/27/25AM, stopped 06/03/25AM as pt completed 7 days
-last fever 05/29/25PM, leukocytosis improved
Atrial fibrillation with RVR:
-s/p LENARD/cardioversion January 2023, CV February 2023, started on Amio 01/2023
-h/o GIB due to hemorrhoids
-in the past pt did not want to have ablation
-was on a Cardizem gtt. On 05/24/25 pt developed bradycardia and hypotension while on the Cardizem drip, received 1mg epi, was intubated for airway protection. BB/ACEi/Aldactone held for hypotension at the time.
-coreg now resumed, increased today
-cont eliquis/amio/Dig
Acute on chronic HFrEF:
-due to Afib with RVR + medical noncompliance
-previously had a recovered EF, now EF 15-20%
-ACEi/Aldactone/Coreg/IV Lasix were on hold with hypotension/cardiogenic shock
-was on vasopressors for cardiogenic shock, now off pressors
-cont IV lasix
-back on Coreg, increased today
-daily wts (down 19kg), I/Os
-TEECV on 06/06/25
Other problems:
Respiratory Alkalosis, resolved
MELANIA due to CRS, resolved
Hyponatremia, likely SIADH, was mild, now resolved
Mild transaminitis, likely due to congestive hepatopathy, resolved
Essential HTN: cont BB/ACEi
FULL/Eliquis
Anticipated Discharge: > 48 hours
Subjective/Interval History
-
Date of Service: June 04, 2025
No new complaints.
Objective Data
-
Labs:
Laboratory Results
06/04/25
04:19
WBC 13.7 H
Hgb 14.1
Hct 43.9
Plt Count 262
Vital Signs:
Vital Signs
Temp Pulse Resp BP Pulse Ox
97.6 F 82 23 110/73 97
06/04/25 07:33 06/04/25 10:00 06/04/25 10:00 06/04/25 10:00 06/04/25 10:00
I&O
06/03/25 06/04/25 06/05/25
06:59 06:59 06:59
Intake Total 1520 / 1520 960 / 960 480 / 480
Output Total 700 / 700 1475 / 1475 400 / 400
Balance 820 / 820 -515 / -515 80 / 80
--- NOTE | 2025-06-04 11:03 | W.PN.CARDCBS ---
Today's Communication / Plan
-
Continues to slowly improve. Will increase Coreg to 12.5 mg p.o. twice daily. Continue lisinopril.
Will continue IV Lasix for another 24 hours.
Creat normal
Plan for LENARD cardioversion 06/06
Impression / Plan
-
.
PCP: Dr. Baldwin
Boardmarker: Dr Donaldson
Impression:
AFib RVR
Acute heart failure with reduced EF, possibly tachycardia mediated
Transient cardiogenic shock in the setting of IV diltiazem, requiring pressors, calcium, glucagon
Elevated troponin, likely nonMI troponin elevation
Nonischemic cardiomyopathy
HTN
Hyperglycemia
Leukocytosis
Previous cardiovascular testing:
Left heart cath 05/05/2023: Normal coronary arteries
Echo 02/06/2023: EF 41%, mild to moderate MR
Echo 06/29/2023: EF 51%
Echo 05/24/2025: EF 15 to 20%, top normal LV, possible inferior akinesis with severe global hypokinesis, moderate MR, MAC, dilated left atrium, aortic sclerosis, borderline dilated RV with hypokinesis and dilated RA, pulmonary artery pressure was 33
at the time of the study
Plan:
Remains in atrial fibrillation with modestly elevated rates but better controlled over the last 24 hours.
Increase Coreg 12.5 mg p.o. twice daily.
Cont Digoxin, will consider stopping over next 24 to 48 hours.
Cont Amiodarone, which was reduced from 400 mg 3 times daily to 200 mg twice daily on May 30, 2025
Avoid calcium blockers given systolic dysfunction.
Maintain Eliquis for atrial fibrillation related thromboembolic risk reduction
Plan will be for LENARD cardioversion 06/06
Heart failure with reduced ejection fraction
Lasix 40 mg IV daily for volume overload
Weight continues to come down
Cont negative Is and Os.
Cr stable at 0.8.
Cont ACEI
Consider Aldactone if bp can tolerate over next 24 hrs.
Continue antibiotics for pneumonia per primary service and infectious disease
Cont medical therapy of nonMI troponin (Low-level troponin elevation noted on 05/23 and 05/24 0.056, 0.064, 0.071)
Nonspecific ST/T wave changes on ECG are similar to prior tracings
Left heart catheterization in 2022 with normal coronaries
Likely nonischemic myocardial injury troponin elevation due to acute heart failure and A-fib RVR
No plans currently for ischemic evaluation, could consider as outpt.
Progress Note - Boardmarker
Subjective
Date of Service: June 04, 2025
Continues to slowly improve. Denies chest pains. Remains in A-fib.
Objective
Labs:
06/04/25 04:19
06/03/25 05:50
Labs
Hgb 14.1 g/dL (13.0-18.0) 06/04/25 04:19
Hct 43.9 % (39.0-52.0) 06/04/25 04:19
Plt Count 262 10^3/uL (130-400) 06/04/25 04:19
PT 20.2 Sec (11.4-14.6) H 05/24/25 12:43
INR 1.70 05/24/25 12:43
APTT 27.8 Sec (23.4-35.0) 05/24/25 12:43
Sodium 135 mmol/L (135-145) 06/03/25 05:50
Potassium 4.3 mmol/L (3.5-5.1) 06/03/25 05:50
BUN 45 mg/dl (9-20) H 06/03/25 05:50
Creatinine 0.8 mg/dL (0.7-1.3) 06/03/25 05:50
Glucose 106 mg/dl (70-99) H 06/03/25 05:50
Digoxin < 0.4 ng/ml (0.8-2.0) L 05/30/25 07:33
Vital Signs and I&O:
Vital Signs
Temp Pulse Resp BP Pulse Ox
97.6 F 82 23 110/73 97
06/04/25 07:33 06/04/25 10:00 06/04/25 10:00 06/04/25 10:00 06/04/25 10:00
Vital Signs
Temp Pulse Resp BP Pulse Ox
97.6 F 82 23 110/73 97
06/04/25 07:33 06/04/25 10:00 06/04/25 10:00 06/04/25 10:00 06/04/25 10:00
Intake & Output
06/02/25 06/03/25 06/04/25 06/05/25
06:59 06:59 06:59 06:59
Intake Total 1989 / 1989 1520 / 1520 960 / 960 480 / 480
Output Total 1650 / 1650 700 / 700 1475 / 1475 400 / 400
Balance 340 / 340 820 / 820 -515 / -515 80 / 80
Physical Exam
Physical Exam
GEN: No distress, awake, Ox3
HEENT: supple, anicteric, mmm
LUNGS: scatt rhonchi
CV: Irreg, S1/S2, 1/6 syst LSB, no gallop
ABD: soft, BS+, NT/ND
EXT: No edema
NEURO: Gross non-focal
SKIN: No rash
[2025-06-04] MEDS: LANOXIN 125 MCG TUBE (12:25)
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
[2025-06-04] MEDS: COREG 12.5 MG TUBE (19:29)
[2025-06-04] MEDS: DESYREL 12.5 MG PO (21:57)
[2025-06-05] VITALS (19 sets, daily range): BP systolic 97–134; BP diastolic 57–121; PULSE 90; BMI 25.6
--- NOTE | 2025-06-05 00:37 | PTCARENOTE ---
Patient AAOx3, forgetful at times, interactivity improving. SpO2 97% on room air. Non-productive cough. A-fib with PVCs on the monitor. HR 85. BP stable. Pt took oral medications with sips of water no issues. Assist x1 with RW OOB. Pt utilizing
urinal. Ringing call moreira appropriately. Bed alarm is on. Call moreira is within reach.
[2025-06-05 04:11] LABS: Hematocrit 46.4 % (39.0-52.0); Hemoglobin 15.6 g/dL (13.0-18.0); Mean Corp Hgb Conc. 33.6 g/dL (33.0-37.0); Mean Corpuscular Volume 93.2 fL (80.0-94.0); Platelet Count 248 10^3/uL (130-400); Red Cell Dist. Width 15.2 % (11.5-14.5)
[2025-06-05] MEDS: COREG 12.5 MG TUBE (09:26)
[2025-06-05] MEDS: PACERONE 200 MG TUBE (09:27)
[2025-06-05] MEDS: SENOKOT-S 2 TABLET TUBE (09:27)
[2025-06-05] MEDS: LASIX 40 MG IV (09:27)
[2025-06-05] MEDS: MIRALAX 17 GRAMS TUBE (09:27)
[2025-06-05] MEDS: ZESTRIL 5 MG PO (09:27)
[2025-06-05] MEDS: ELIQUIS 5 MG TUBE (09:27)
--- NOTE | 2025-06-05 11:23 | CM ---
CM spoke with sister to discuss additional SNF site preferences; reported that she was seeking a facility that can support short term skilled and long term acute care registered nurse care if needed; referrals sent via [facility]
Plan: Discharge to SNF pending bed availability and authorization approval
--- NOTE | 2025-06-05 12:24 | PTCARENOTE ---
Pt's assessment as documented. Afib on tele monitor. OOB to chair with PT. Voiding in urinal. Medications administered as ordered, see MAR. Ringing appropriately, call moreira within reach. Bed alarm in place for safety.
--- NOTE | 2025-06-05 12:49 | W.PN.HOSP.TC ---
Today's Communication/Plan
-
see plan
Assessment / Plan
Assessment / Plan
Gen: remains NAD, Awake and alert
Eyes: EOMI, PERRLA, no scleral icterus.
Neck: supple.
CV: tachy, irreg/irreg, +S1/S2, no m/r/g.
Resp: CTAB anteriorly, no rales, wheezes, or rhonchi.
Abd: +BS, soft, NT, ND
Skin: No rashes.
Neuro: CN 2-12 intact, non-focal.
Psych: Normal mood and affect.
05/28/25 09:22 Blood/Venous Blood Culture - Final
No Growth - Final Report
05/27/25 12:13 Blood/Venous Blood Culture - Final
No Growth - Final Report
05/27/25 12:13 Blood/Venous Blood Culture - Final
No Growth - Final Report
05/28/25 21:42 Tracheal Aspirate Respiratory Culture - Final
NO GROWTH
05/28/25 21:42 Tracheal Aspirate Gram Stain - Final
05/27/25 11:40 Tracheal Aspirate Respiratory Culture - Final
Moraxella catarrhalis
05/27/25 11:40 Tracheal Aspirate Gram Stain - Final
05/27/25 11:39 Nose Nasal Screen MRSA (PCR) - Final
MRSA not detected - performed by PCR methodology.
05/24/25 13:48 Endotracheal Respiratory Culture - Final
Usual Respiratory Viviane
05/24/25 13:48 Endotracheal Gram Stain - Final
CXR: Interstitial pulmonary edema with small bilateral pleural effusions.
Echo:
1. Top normal left ventricular size with severe global hypokinesis, EF 15 to 20% with possible akinesis of the inferior segments
2. Thickened mitral leaflets, moderate mitral regurgitation, mitral annular calcification, and dilated left atrium
3. Aortic sclerosis without stenosis or regurgitation
4. Borderline dilated right ventricle with hypokinesis and dilated right atrium, mild tricuspid regurgitation, pulmonary artery systolic pressure 33mmHg
In June 2023, the ejection fraction was 51%. The apical septum was akinetic there is mild mitral regurgitation.
CXR 05/25/25: Progressed prominence of the central vasculature and opacification lower lung roberts concerning for pulmonary edema. Bilateral pneumonia and pleural effusions cannot be excluded. Cardiomegaly. Stable.
CT brain: No acute intracranial abnormality noted.
CTA head/neck: No evidence of acute vascular pathology. No M1 nor M2 occlusion. Right vertebral artery pathology as described above. Unclear if chronic/congenital or acute. Large bilateral pleural effusions. New. Moderate bilateral lower lobe
consolidation. This may represent pneumonia or atelectasis. New. Multilevel degenerative disc disease.
Ventilator dependent respiratory failure:
-due to unresponsive episode due to Cardizem toxicity causing bradycardia and hypotension (cardiogenic shock) on 05/24/25
-extubated 05/29/25
-neuro saw in c/s, no evidence of CVA, imaging above
�CT imaging with no evidence of severe vascular occlusion
Sepsis due to purulent tracheobronchitis:
-with acute metabolic encephalopathy due to sepsis
-tracheal aspirate Cx 05/27/25 with Moraxella catarrhalis
-tracheal aspirate Cx 05/28/25 ND
-Cefepime started 05/27/25AM, stopped 06/03/25AM as pt completed 7 days
-last fever 05/29/25PM, leukocytosis improved
Atrial fibrillation with RVR:
-s/p LENARD/cardioversion January 2023, CV February 2023, started on Amio 01/2023
-h/o GIB due to hemorrhoids
-in the past pt did not want to have ablation
-was on a Cardizem gtt. On 05/24/25 pt developed bradycardia and hypotension while on the Cardizem drip, received 1mg epi, was intubated for airway protection. BB/ACEi/Aldactone held for hypotension at the time.
-coreg now resumed and increased
-cont eliquis/amio/Dig
Acute on chronic HFrEF:
-due to Afib with RVR + medical noncompliance
-previously had a recovered EF, now EF 15-20%
-ACEi/Aldactone/Coreg/IV Lasix were on hold with hypotension/cardiogenic shock
-was on vasopressors for cardiogenic shock, now off pressors
-cont IV lasix
-back on Coreg
-daily wts (down 20kg), I/Os
-TEECV on 06/06/25
Other problems:
Respiratory Alkalosis, resolved
MELNAIA due to CRS, resolved
Hyponatremia, likely SIADH, was mild, now resolved
Mild transaminitis, likely due to congestive hepatopathy, resolved
Essential HTN: cont BB/ACEi
FULL/Eliquis
Anticipated Discharge: 24 - 48 hours
Subjective/Interval History
-
Date of Service: June 05, 2025
Denies CP/SOB.
Objective Data
-
Labs:
Laboratory Results
06/05/25
03:59
WBC 12.8 H
Hgb 15.6
Hct 46.4
Plt Count 248
Vital Signs:
Vital Signs
Temp Pulse Resp BP Pulse Ox
97.6 F 91 26 134/78 97
06/05/25 07:14 06/05/25 10:00 06/05/25 10:00 06/05/25 10:00 06/05/25 08:02
I&O
06/04/25 06/05/25 06/06/25
06:59 06:59 06:59
Intake Total 960 / 960 720 / 720
Output Total 1475 / 1475 1200 / 1200
Balance -515 / -515 -480 / -480
[2025-06-05] MEDS: LANOXIN 125 MCG PO (13:21)
--- NOTE | 2025-06-05 14:31 | W.PN.CARDCBS ---
Today's Communication / Plan
-
Continue Coreg and amiodarone.
Plan for LENARD cardioversion in a.m.
Continue lisinopril.
Blood pressure remains marginal so would hold off on spironolactone.
Check repeat basic metabolic panel in AM to follow creatinine and potassium
Impression / Plan
-
.
PCP: Dr. Baldwin
Science And Operations Officer: Dr Donaldson
Impression:
AFib RVR
Acute heart failure with reduced EF, possibly tachycardia mediated
Transient cardiogenic shock in the setting of IV diltiazem, requiring pressors, calcium, glucagon
Elevated troponin, likely nonMI troponin elevation
Nonischemic cardiomyopathy
HTN
Hyperglycemia
Leukocytosis
Previous cardiovascular testing:
Left heart cath 05/05/2023: Normal coronary arteries
Echo 02/06/2023: EF 41%, mild to moderate MR
Echo 06/29/2023: EF 51%
Echo 05/24/2025: EF 15 to 20%, top normal LV, possible inferior akinesis with severe global hypokinesis, moderate MR, MAC, dilated left atrium, aortic sclerosis, borderline dilated RV with hypokinesis and dilated RA, pulmonary artery pressure was 33
at the time of the study
Plan:
Remains in atrial fibrillation with modestly elevated rates but better controlled over the last 24 hours.
Connt Coreg 12.5 mg p.o. twice daily.
will D/C Digoxin
Cont Amiodarone, which was reduced from 400 mg 3 times daily to 200 mg twice daily on May 30, 2025
Avoid calcium blockers given systolic dysfunction.
Maintain Eliquis for atrial fibrillation related thromboembolic risk reduction
Plan will be for LENARD cardioversion 06/06
Heart failure with reduced ejection fraction
Lasix 40 mg IV daily for volume overload
Weight continues to come down
Cont negative Is and Os.
Cr stable at 0.8. Repeat in AM
Cont ACEI
Consider Aldactone if bp can tolerate over next 24 hrs.
Continue antibiotics for pneumonia per primary service and infectious disease
Cont medical therapy of nonMI troponin (Low-level troponin elevation noted on 05/23 and 05/24 0.056, 0.064, 0.071)
Nonspecific ST/T wave changes on ECG are similar to prior tracings
Left heart catheterization in 2022 with normal coronaries
Likely nonischemic myocardial injury troponin elevation due to acute heart failure and A-fib RVR
No plans currently for ischemic evaluation, could consider as outpt.
Progress Note - Science And Operations Officer
Subjective
Date of Service: June 05, 2025
Continues to improve. Denies chest pain or palpitations. His breathing is better.
Objective
Labs:
06/05/25 03:59
06/03/25 05:50
Labs
Hgb 15.6 g/dL (13.0-18.0) 06/05/25 03:59
Hct 46.4 % (39.0-52.0) 06/05/25 03:59
Plt Count 248 10^3/uL (130-400) 06/05/25 03:59
PT 20.2 Sec (11.4-14.6) H 05/24/25 12:43
INR 1.70 05/24/25 12:43
APTT 27.8 Sec (23.4-35.0) 05/24/25 12:43
Sodium 135 mmol/L (135-145) 06/03/25 05:50
Potassium 4.3 mmol/L (3.5-5.1) 06/03/25 05:50
BUN 45 mg/dl (9-20) H 06/03/25 05:50
Creatinine 0.8 mg/dL (0.7-1.3) 06/03/25 05:50
Glucose 106 mg/dl (70-99) H 06/03/25 05:50
Digoxin < 0.4 ng/ml (0.8-2.0) L 05/30/25 07:33
Vital Signs and I&O:
Vital Signs
Temp Pulse Resp BP Pulse Ox
97.7 F 69 13 9763 97
06/05/25 11:13 06/05/25 14:00 06/05/25 14:00 06/05/25 14:00 06/05/25 08:02
Vital Signs
Temp Pulse Resp BP Pulse Ox
97.7 F 69 13 97
06/05/25 11:13 06/05/25 14:00 06/05/25 14:00 06/05/25 14:00 06/05/25 08:02
Intake & Output
06/03/25 06/04/25 06/05/25 06/06/25
06:59 06:59 06:59 06:59
Intake Total 1520 / 1520 960 / 960 720 / 720
Output Total 700 / 700 1475 / 1475 1200 / 1200
Balance 820 / 820 -515 / -515 -480 / -480
Physical Exam
Physical Exam
GEN: No distress, awake, Ox3
HEENT: supple, anicteric, mmm
LUNGS: CTA, no wheezes/rales
CV: Irreg, S1/S2, 1/6 syst LSB, no gallop
ABD: soft, BS+, NT/ND
EXT: No edema
NEURO: Gross non-focal
SKIN: No rash
[2025-06-05] MEDS: ELIQUIS 5 MG PO (19:43)
[2025-06-05] MEDS: COREG 12.5 MG PO (19:43)
[2025-06-05] MEDS: PACERONE 200 MG PO (19:44)
[2025-06-05] MEDS: SENOKOT-S 2 TABLET PO (19:44)
[2025-06-05] MEDS: DESYREL 12.5 MG PO (21:56)
--- NOTE | 2025-06-05 23:29 | PTCARENOTE ---
Assessment and vitals as charted. AAOx3, forgetful at times. A-fib on the monitor HR 71. Utilizing the urinal to void. Pt NPO at midnight for LENARD in AM. Pt understanding. Bed alarm on. Call moreira within reach.
[2025-06-06] VITALS (20 sets, daily range): BP systolic 82–126; BP diastolic 45–94; PULSE 77–89; BMI 25.2
--- NOTE | 2025-06-06 02:01 | PTCARENOTE ---
Patient pulled off wrap over IV site, IV dressing and pulled out IV catheter. Pt does not recall. VAT placed new IV site.
[2025-06-06 05:49] LABS: Hematocrit 45.2 % (39.0-52.0); Hemoglobin 14.6 g/dL (13.0-18.0); Mean Corp Hgb Conc. 32.3 g/dL (33.0-37.0); Mean Corpuscular Volume 95.0 fL (80.0-94.0); Platelet Count 289 10^3/uL (130-400); Red Cell Dist. Width 15.3 % (11.5-14.5)
[2025-06-06 06:13] LABS: Blood Urea Nitrogen 37 mg/dl (9-20); Calcium 8.6 mg/dl (8.4-10.2); Carbon Dioxide 27 mmol/L (22-30); Chloride 101 mmol/L (98-107); Estimated Creatinine Clearance 85 ml/min; Glucose 97 mg/dl (70-99); Potassium 4.5 mmol/L (3.5-5.1); Sodium 135 mmol/L (135-145); eGFR > 60.00
--- NOTE | 2025-06-06 08:00 | PTCARENOTE ---
Pt AAOx3 with some confusion at times. R forearm INT wrapped as pt has been known to pull out IV and doesn't know why he did it. Upset that he egan npt have a scheduled time for his pricedure, explained to pt that there can be emergencies and if he
were the emergency he would be first.Po meds given and Lasix with out incident with small amt of water.
[2025-06-06] MEDS: ELIQUIS 5 MG PO ×2 (08:10→19:53)
[2025-06-06] MEDS: COREG 12.5 MG PO ×2 (08:10→19:52)
[2025-06-06] MEDS: ZESTRIL 5 MG PO (08:11)
[2025-06-06] MEDS: PACERONE 200 MG PO ×2 (08:11→19:52)
[2025-06-06] MEDS: LASIX 40 MG IV (08:12)
[2025-06-06] MEDS: SENOKOT-S PO (08:39)
[2025-06-06] MEDS: MIRALAX PO (08:39)
--- NOTE | 2025-06-06 10:03 | PTCARENOTE ---
REport to medical lab specialist nurse and Pt aware
--- NOTE | 2025-06-06 11:44 | W.PN.HOSP.TC ---
Today's Communication/Plan
-
see plan
Assessment / Plan
Assessment / Plan
Gen: continues to remain NAD, Awake and alert
Eyes: EOMI, PERRLA, no scleral icterus.
Neck: supple.
CV: irreg/irreg, +S1/S2, no m/r/g.
Resp: CTAB anteriorly, no rales, wheezes, or rhonchi.
Abd: remains +BS, soft, NT, ND
Skin: No rashes.
Neuro: CN 2-12 intact, non-focal.
Psych: Normal mood and affect.
05/28/25 09:22 Blood/Venous Blood Culture - Final
No Growth - Final Report
05/27/25 12:13 Blood/Venous Blood Culture - Final
No Growth - Final Report
05/27/25 12:13 Blood/Venous Blood Culture - Final
No Growth - Final Report
05/28/25 21:42 Tracheal Aspirate Respiratory Culture - Final
NO GROWTH
05/28/25 21:42 Tracheal Aspirate Gram Stain - Final
05/27/25 11:40 Tracheal Aspirate Respiratory Culture - Final
Moraxella catarrhalis
05/27/25 11:40 Tracheal Aspirate Gram Stain - Final
05/27/25 11:39 Nose Nasal Screen MRSA (PCR) - Final
MRSA not detected - performed by PCR methodology.
05/24/25 13:48 Endotracheal Respiratory Culture - Final
Usual Respiratory Viviane
05/24/25 13:48 Endotracheal Gram Stain - Final
CXR: Interstitial pulmonary edema with small bilateral pleural effusions.
Echo:
1. Top normal left ventricular size with severe global hypokinesis, EF 15 to 20% with possible akinesis of the inferior segments
2. Thickened mitral leaflets, moderate mitral regurgitation, mitral annular calcification, and dilated left atrium
3. Aortic sclerosis without stenosis or regurgitation
4. Borderline dilated right ventricle with hypokinesis and dilated right atrium, mild tricuspid regurgitation, pulmonary artery systolic pressure 33mmHg
In June 2023, the ejection fraction was 51%. The apical septum was akinetic there is mild mitral regurgitation.
CXR 05/25/25: Progressed prominence of the central vasculature and opacification lower lung roberts concerning for pulmonary edema. Bilateral pneumonia and pleural effusions cannot be excluded. Cardiomegaly. Stable.
CT brain: No acute intracranial abnormality noted.
CTA head/neck: No evidence of acute vascular pathology. No M1 nor M2 occlusion. Right vertebral artery pathology as described above. Unclear if chronic/congenital or acute. Large bilateral pleural effusions. New. Moderate bilateral lower lobe
consolidation. This may represent pneumonia or atelectasis. New. Multilevel degenerative disc disease.
Ventilator dependent respiratory failure:
-due to unresponsive episode due to Cardizem toxicity causing bradycardia and hypotension (cardiogenic shock) on 05/24/25
-extubated 05/29/25
-neuro saw in c/s, no evidence of CVA, imaging above
�CT imaging with no evidence of severe vascular occlusion
Sepsis due to purulent tracheobronchitis:
-with acute metabolic encephalopathy due to sepsis
-tracheal aspirate Cx 05/27/25 with Moraxella catarrhalis
-tracheal aspirate Cx 05/28/25 ND
-Cefepime started 05/27/25AM, stopped 06/03/25AM as pt completed 7 days
-last fever 05/29/25PM, leukocytosis improved
Atrial fibrillation with RVR:
-s/p LENARD/cardioversion January 2023, CV February 2023, started on Amio 01/2023
-h/o GIB due to hemorrhoids
-in the past pt did not want to have ablation
-was on a Cardizem gtt. On 05/24/25 pt developed bradycardia and hypotension while on the Cardizem drip, received 1mg epi, was intubated for airway protection. BB/ACEi/Aldactone held for hypotension at the time.
-coreg now resumed and increased
-cont eliquis/amio/Dig
Acute on chronic HFrEF:
-due to Afib with RVR + medical noncompliance
-previously had a recovered EF, now EF 15-20%
-ACEi/Aldactone/Coreg/IV Lasix were on hold with hypotension/cardiogenic shock
-was on vasopressors for cardiogenic shock, now off pressors
-cont IV lasix
-back on Coreg
-daily wts (down 20kg), I/Os
-TEECV on 06/06/25 aborted due to SHERRY thrombus
Other problems:
Respiratory Alkalosis, resolved
MELANIA due to CRS, resolved
Hyponatremia, likely SIADH, was mild, now resolved
Mild transaminitis, likely due to congestive hepatopathy, resolved
Essential HTN: cont BB/ACEi
FULL/Eliquis
Dispo: d/c tomorrow as per discussion with Dr. Donaldson.
Anticipated Discharge: Within 24 hours
Subjective/Interval History
-
Date of Service: June 06, 2025
Denies chest pain or shortness of breath.
Objective Data
-
Labs:
Laboratory Results
06/06/25
05:24
WBC 12.1 H
Hgb 14.6
Hct 45.2
Plt Count 289
Sodium 135
Potassium 4.5
Chloride 101
Carbon Dioxide 27
BUN 37 H
Creatinine 0.9
Glucose 97
Calcium 8.6
Vital Signs:
Vital Signs
Temp Pulse Resp BP Pulse Ox
98.9 F 75 16 126/84 94
06/06/25 07:00 06/06/25 08:12 06/06/25 06:00 06/06/25 08:12 06/06/25 08:00
I&O
06/05/25 06/06/25 06/07/25
06:59 06:59 06:59
Intake Total 720 / 720
Output Total 1200 / 1200 400 / 400 925 / 925
Balance -480 / -480 -400 / -400 -925 / -925
--- NOTE | 2025-06-06 11:55 | W.PN.CARDCBS ---
Today's Communication / Plan
-
Underwent LENARD earlier today with possible SHERRY thrombus - DCCV was not performed
Continue Eliquis, Coreg and amio
Add aldactone
Suspect we can transition to PO lasix in the next 24-48hrs
Impression / Plan
-
PCP: Dr. Baldwin
Novelty Worker: Dr Donaldson
Impression:
AFib RVR
Acute heart failure with reduced EF, possibly tachycardia mediated
Transient cardiogenic shock in the setting of IV diltiazem, requiring pressors, calcium, glucagon
Elevated troponin, likely nonMI troponin elevation
Nonischemic cardiomyopathy
HTN
Hyperglycemia
Leukocytosis
Previous cardiovascular testing:
Left heart cath 05/05/2023: Normal coronary arteries
Echo 02/06/2023: EF 41%, mild to moderate MR
Echo 06/29/2023: EF 51%
Echo 05/24/2025: EF 15 to 20%, top normal LV, possible inferior akinesis with severe global hypokinesis, moderate MR, MAC, dilated left atrium, aortic sclerosis, borderline dilated RV with hypokinesis and dilated RA, pulmonary artery pressure was 33
at the time of the study
Plan:
Remains in atrial fibrillation
LENARD 06/06/25 with possible SHERRY thrombus and DCCV was not performed
Continue Eliquis with plan for repeat LENARD in ~6 weeks to reassess
Heart rates are better controlled today
Continue Coreg 12.5 mg p.o. twice daily with amiodarone 200mg daily for adjunct rate control -
Avoid calcium blockers given systolic dysfunction.
Heart failure with reduced ejection fraction
Lasix 40 mg IV daily for volume overload - suspect we can transition to PO lasix in the next 24-48hrs
Cont ACEI
Add low dose Aldactone
Continue antibiotics for pneumonia per primary service and infectious disease
Cont medical therapy of nonMI troponin (Low-level troponin elevation noted on 05/23 and 05/24 0.056, 0.064, 0.071)
Nonspecific ST/T wave changes on ECG are similar to prior tracings
Left heart catheterization in 2022 with normal coronaries
Likely nonischemic myocardial injury troponin elevation due to acute heart failure and A-fib RVR
No plans currently for ischemic evaluation, could consider as outpt.
Progress Note - Novelty Worker
Subjective
Date of Service: June 06, 2025
NAOE. Remains in IMU in rate controlled AFib. No cardiac complaints.
Underwent LENARD earlier today with possible SHERRY thrombus and DCCV was not performed.
Objective
Labs:
06/06/25 05:24
06/06/25 05:24
Labs
Hgb 14.6 g/dL (13.0-18.0) 06/06/25 05:24
Hct 45.2 % (39.0-52.0) 06/06/25 05:24
Plt Count 289 10^3/uL (130-400) 06/06/25 05:24
PT 20.2 Sec (11.4-14.6) H 05/24/25 12:43
INR 1.70 05/24/25 12:43
APTT 27.8 Sec (23.4-35.0) 05/24/25 12:43
Sodium 135 mmol/L (135-145) 06/06/25 05:24
Potassium 4.5 mmol/L (3.5-5.1) 06/06/25 05:24
BUN 37 mg/dl (9-20) H 06/06/25 05:24
Creatinine 0.9 mg/dL (0.7-1.3) 06/06/25 05:24
Glucose 97 mg/dl (70-99) 06/06/25 05:24
Digoxin < 0.4 ng/ml (0.8-2.0) L 05/30/25 07:33
Vital Signs and I&O:
Vital Signs
Temp Pulse Resp BP Pulse Ox
98.9 F 75 16 126/84 94
06/06/25 07:00 06/06/25 08:12 06/06/25 06:00 06/06/25 08:12 06/06/25 08:00
Vital Signs
Temp Pulse Resp BP Pulse Ox
98.9 F 75 16 126/84 94
06/06/25 07:00 06/06/25 08:12 06/06/25 06:00 06/06/25 08:12 06/06/25 08:00
Intake & Output
06/04/25 06/05/25 06/06/25 06/07/25
06:59 06:59 06:59 06:59
Intake Total 960 / 960 720 / 720
Output Total 1475 / 1475 1200 / 1200 400 / 400 925 / 925
Balance -515 / -515 -480 / -480 -400 / -400 -925 / -925
Physical Exam
Physical Exam
Gen: NAD, AAOx3
HEENT: NC/AT, sclera anicteric
Neck: No JVD
CV: Irregularly irregular, NL s1/s2, no M/R/G
Lungs: No increased WOB on 2L NC
Abd: S/ND
Ext: No LE edema
Skin: Warm, dry
Neuro: Non-focal
[2025-06-06] MEDS: ALDACTONE 12.5 MG PO (12:33)
--- NOTE | 2025-06-06 13:09 | CM ---
Addendum entered by Dennise Mae RN 06/06/25 17:14:
Received phone call from Bryce Martinez; SNF is approved from 06/06 to 06/12, subacute level 1, auth # [id number]. NR 06/13 fax [phone].
Spoke with Juan Razo [facility]; auth info relayed. They will be able to accept the patient tomorrow. The for report [phone], fax [phone].
Spoke with patient's sister Frances; provided update that patient was approved for [facility] for rehab with plan for d/c tomorrow.
Plan [facility] tomorrow.
Addendum entered by Dennise Mae RN 06/06/25 15:05:
Spoke with Juan Razo [facility]; they will be able to accept tomorrow once insurance approves.
Request for [facility] sent to [employer] via [employer], Reference Number [id number]. Clinicals sent via [employer] F[employer].
Plan [facility] tomorrow once insurance approves.
Original Note:
Patient with Dx VDRF extubated 05/29, Sepsis - tracheobronchitis, A fib with RVR, HF. LENARD today. Room air. Receiving IV Lasix. Dysphagia diet. PT/OT 06/05 recommends skilled rehab. Per nurse; confused/forgetful.
Message from Dr Villarreal; patient will be ready for d/c tomorrow.
Message to PT/OT that updated therapy notes are needed today for rehab.
Spoke with Juan Razo [facility]; they may be able to accept and will speak with his sister about a LTC andressa. She is aware patient will need [facility] insurance auth.
Spoke with patient's sister Frances; she is agreeable to the patient going to [facility] for STR followed by LTC if he remains confused. She is willing to assist with a LTC financial application.
Plan follow up with [facility] re; acceptance, request insurance auth once updated therapy notes are available.
Plan possible [facility] for STR/LTC.
[2025-06-06] MEDS: SENOKOT-S 2 TABLET PO (19:51)
[2025-06-06] MEDS: DESYREL 12.5 MG PO (19:51)
--- NOTE | 2025-06-06 21:56 | PTCARENOTE ---
Patient aao x2-3 since start of shift, confusion noted at times. Denies pain. Remains in afib at this time. Right forearm IV remains, will monitor IV site as patient known to remove IVs. Call moreira within reach, will continue to monitor patient
closely.
[2025-06-07] VITALS (14 sets, daily range): BP systolic 84–136; BP diastolic 50–81
[2025-06-07] MEDS: DESYREL 12.5 MG PO ×2 (00:47→20:33)
[2025-06-07 04:10] LABS: Hematocrit 45.4 % (39.0-52.0); Hemoglobin 15.0 g/dL (13.0-18.0); Mean Corp Hgb Conc. 33.0 g/dL (33.0-37.0); Mean Corpuscular Volume 93.8 fL (80.0-94.0); Platelet Count 275 10^3/uL (130-400); Red Cell Dist. Width 15.3 % (11.5-14.5)
[2025-06-07 04:36] LABS: Blood Urea Nitrogen 53 mg/dl (9-20); Calcium 8.7 mg/dl (8.4-10.2); Carbon Dioxide 26 mmol/L (22-30); Chloride 100 mmol/L (98-107); Estimated Creatinine Clearance 55 ml/min; Glucose 102 mg/dl (70-99); Potassium 5.0 mmol/L (3.5-5.1); Sodium 134 mmol/L (135-145); eGFR 56.83
--- NOTE | 2025-06-07 08:10 | W.PN.HOSP.TC ---
Today's Communication/Plan
-
see plan
Assessment / Plan
Assessment / Plan
Gen: NAD, Awake and alert
Eyes: EOMI, PERRLA, no scleral icterus.
Neck: supple.
CV: remains irreg/irreg, +S1/S2, no m/r/g.
Resp: remains CTAB anteriorly, no rales, wheezes, or rhonchi.
Abd: +BS, soft, NT, ND
Skin: No rashes.
Neuro: remains CN 2-12 intact, non-focal.
Psych: Normal mood and affect.
05/28/25 09:22 Blood/Venous Blood Culture - Final
No Growth - Final Report
05/27/25 12:13 Blood/Venous Blood Culture - Final
No Growth - Final Report
05/27/25 12:13 Blood/Venous Blood Culture - Final
No Growth - Final Report
05/28/25 21:42 Tracheal Aspirate Respiratory Culture - Final
NO GROWTH
05/28/25 21:42 Tracheal Aspirate Gram Stain - Final
05/27/25 11:40 Tracheal Aspirate Respiratory Culture - Final
Moraxella catarrhalis
05/27/25 11:40 Tracheal Aspirate Gram Stain - Final
05/27/25 11:39 Nose Nasal Screen MRSA (PCR) - Final
MRSA not detected - performed by PCR methodology.
05/24/25 13:48 Endotracheal Respiratory Culture - Final
Usual Respiratory Viviane
05/24/25 13:48 Endotracheal Gram Stain - Final
CXR: Interstitial pulmonary edema with small bilateral pleural effusions.
Echo:
1. Top normal left ventricular size with severe global hypokinesis, EF 15 to 20% with possible akinesis of the inferior segments
2. Thickened mitral leaflets, moderate mitral regurgitation, mitral annular calcification, and dilated left atrium
3. Aortic sclerosis without stenosis or regurgitation
4. Borderline dilated right ventricle with hypokinesis and dilated right atrium, mild tricuspid regurgitation, pulmonary artery systolic pressure 33mmHg
In June 2023, the ejection fraction was 51%. The apical septum was akinetic there is mild mitral regurgitation.
CXR 05/25/25: Progressed prominence of the central vasculature and opacification lower lung roberts concerning for pulmonary edema. Bilateral pneumonia and pleural effusions cannot be excluded. Cardiomegaly. Stable.
CT brain: No acute intracranial abnormality noted.
CTA head/neck: No evidence of acute vascular pathology. No M1 nor M2 occlusion. Right vertebral artery pathology as described above. Unclear if chronic/congenital or acute. Large bilateral pleural effusions. New. Moderate bilateral lower lobe
consolidation. This may represent pneumonia or atelectasis. New. Multilevel degenerative disc disease.
MELANIA:
-initially was due to CRS and resolved
-now Cr 1.4 from 0.9
-hold lasix/ACEi/aldactone
-check Cr in AM
Ventilator dependent respiratory failure:
-due to unresponsive episode due to Cardizem toxicity causing bradycardia and hypotension (cardiogenic shock) on 05/24/25
-extubated 05/29/25
-neuro saw in c/s, no evidence of CVA, imaging above
�CT imaging with no evidence of severe vascular occlusion
Sepsis due to purulent tracheobronchitis:
-with acute metabolic encephalopathy due to sepsis
-tracheal aspirate Cx 05/27/25 with Moraxella catarrhalis
-tracheal aspirate Cx 05/28/25 ND
-Cefepime started 05/27/25AM, stopped 06/03/25AM as pt completed 7 days
-last fever 05/29/25PM, leukocytosis improved
Atrial fibrillation with RVR:
-s/p LENARD/cardioversion January 2023, CV February 2023, started on Amio 01/2023
-h/o GIB due to hemorrhoids
-in the past pt did not want to have ablation
-was on a Cardizem gtt. On 05/24/25 pt developed bradycardia and hypotension while on the Cardizem drip, received 1mg epi, was intubated for airway protection. BB/ACEi/Aldactone held for hypotension at the time.
-coreg now resumed and increased
-cont eliquis/amio/Dig
Acute on chronic HFrEF:
-due to Afib with RVR + medical noncompliance
-previously had a recovered EF, now EF 15-20%
-ACEi/Aldactone/Coreg/IV Lasix were on hold with hypotension/cardiogenic shock
-was on vasopressors for cardiogenic shock, now off pressors
-stop IV lasix with MELANIA
-back on Coreg
-daily wts (down 20kg), I/Os
-TEECV on 06/06/25 aborted due to SHERRY thrombus
Other problems:
Respiratory Alkalosis, resolved
Hyponatremia, likely SIADH, mild
Mild transaminitis, likely due to congestive hepatopathy, resolved
Essential HTN: cont BB
FULL/Eliquis
Anticipated Discharge: Today
Subjective/Interval History
-
Date of Service: June 07, 2025
Denies CP/SOB.
Objective Data
-
Labs:
Laboratory Results
06/07/25
03:47
WBC 12.8 H
Hgb 15.0
Hct 45.4
Plt Count 275
Sodium 134 L
Potassium 5.0
Chloride 100
Carbon Dioxide 26
BUN 53 H
Creatinine 1.4 H
Glucose 102 H
Calcium 8.7
Vital Signs:
Vital Signs
Temp Pulse Resp BP Pulse Ox
97.3 F 74 20 109/61 96
06/07/25 07:00 06/07/25 06:00 06/07/25 06:00 06/07/25 06:00 06/07/25 04:09
I&O
06/06/25 06/07/25 06/08/25
06:59 06:59 06:59
Intake Total 480 / 480
Output Total 400 / 400 1375 / 1375
Balance -400 / -400 -895 / -895
--- NOTE | 2025-06-07 08:25 | W.PN.CARDCBS ---
Today's Communication / Plan
-
Remains in rate controlled atrial fibrillation
LENARD 06/06/25 with possible SHERRY thrombus and DCCV was not performed
Continue Eliquis with plan for repeat LENARD in ~6 weeks to reassess
Continue Coreg 12.5 mg p.o. twice daily with amiodarone 200mg daily for adjunct rate control
Avoid calcium blockers given systolic dysfunction.
Heart failure with reduced ejection fraction appears euvolemic
Cr now rising. Hold lasix and likely d/c on lasix 40 mg daily and cr in one week.
Monitor today and likely d/c next 24 hrs.
Hold ACEI and Aldactone and will consider resuming these as outpt.
Impression / Plan
-
PCP: Dr. Baldwin
Broadcast Operations Manager: Dr Donaldson
Impression:
AFib RVR, improved rate
Acute heart failure with reduced EF, possibly tachycardia mediated, improved
Transient cardiogenic shock in the setting of IV diltiazem, requiring pressors, calcium, glucagon, resolved
Acute renal insufficiency
Elevated troponin, likely nonMI troponin elevation
Nonischemic cardiomyopathy
HTN
Hyperglycemia
Leukocytosis
Previous cardiovascular testing:
Left heart cath 05/05/2023: Normal coronary arteries
Echo 02/06/2023: EF 41%, mild to moderate MR
Echo 06/29/2023: EF 51%
Echo 05/24/2025: EF 15 to 20%, top normal LV, possible inferior akinesis with severe global hypokinesis, moderate MR, MAC, dilated left atrium, aortic sclerosis, borderline dilated RV with hypokinesis and dilated RA, pulmonary artery pressure was 33
at the time of the study
Plan:
Remains in rate controlled atrial fibrillation
LENARD 06/06/25 with possible SHERRY thrombus and DCCV was not performed
Continue Eliquis with plan for repeat LENARD in ~6 weeks to reassess
Continue Coreg 12.5 mg p.o. twice daily with amiodarone 200mg daily for adjunct rate control
Avoid calcium blockers given systolic dysfunction.
Heart failure with reduced ejection fraction appears euvolemic
Cr now rising. Hold lasix and likely d/c on lasix 40 mg daily and cr in one week.
Monitor today and likely d/c next 24 hrs.
Hold ACEI and Aldactone and will consider resuming these as outpt.
Continue antibiotics for pneumonia per primary service and infectious disease
Cont medical therapy of nonMI troponin (Low-level troponin elevation noted on 05/23 and 05/24 0.056, 0.064, 0.071)
Nonspecific ST/T wave changes on ECG are similar to prior tracings
Left heart catheterization in 2022 with normal coronaries
Likely nonischemic myocardial injury troponin elevation due to acute heart failure and A-fib RVR
No plans currently for ischemic evaluation, could consider as outpt.
Discussed with primary service
Progress Note - Broadcast Operations Manager
Subjective
Date of Service: June 07, 2025
Pt seen and examined. No complaints. No chest pain or shortness of breath.
Objective
Labs:
06/07/25 03:47
06/07/25 03:47
Labs
Hgb 15.0 g/dL (13.0-18.0) 06/07/25 03:47
Hct 45.4 % (39.0-52.0) 06/07/25 03:47
Plt Count 275 10^3/uL (130-400) 06/07/25 03:47
PT 20.2 Sec (11.4-14.6) H 05/24/25 12:43
INR 1.70 05/24/25 12:43
APTT 27.8 Sec (23.4-35.0) 05/24/25 12:43
Sodium 134 mmol/L (135-145) L 06/07/25 03:47
Potassium 5.0 mmol/L (3.5-5.1) 06/07/25 03:47
BUN 53 mg/dl (9-20) H 06/07/25 03:47
Creatinine 1.4 mg/dL (0.7-1.3) H 06/07/25 03:47
Glucose 102 mg/dl (70-99) H 06/07/25 03:47
Digoxin < 0.4 ng/ml (0.8-2.0) L 05/30/25 07:33
Vital Signs and I&O:
Vital Signs
Temp Pulse Resp BP Pulse Ox
97.3 F 74 20 109/61 96
06/07/25 07:00 06/07/25 06:00 06/07/25 06:00 06/07/25 06:00 06/07/25 04:09
Vital Signs
Temp Pulse Resp BP Pulse Ox
97.3 F 74 20 109/61 96
06/07/25 07:00 06/07/25 06:00 06/07/25 06:00 06/07/25 06:00 06/07/25 04:09
Intake & Output
06/05/25 06/06/25 06/07/25 06/08/25
06:59 06:59 06:59 06:59
Intake Total 720 / 720 480 / 480
Output Total 1200 / 1200 400 / 400 1375 / 1375
Balance -480 / -480 -400 / -400 -895 / -895
Physical Exam
Physical Exam
General: No acute distress, AAOX3
Neck: Negative JVD
Heart: Irregularly iregular, Negative S3 positive S1/S2, Negative S4, No murmur
Lungs: CTA b/l, negative wheezes/rales/rhonchi
Abd: Positive BS, NT/ND, neg rebound/rigidity/guarding
Ext: Negative cyanosis/clubbing/edema
Neuro: nonfocal
--- NOTE | 2025-06-07 08:45 | PTCARENOTE ---
Pt AAOIx3 watching TV ambulating to BR as needed
[2025-06-07] MEDS: COREG 12.5 MG PO ×2 (08:58→20:33)
[2025-06-07] MEDS: SENOKOT-S 2 TABLET PO ×2 (09:00→20:32)
[2025-06-07] MEDS: LASIX IV (09:01)
[2025-06-07] MEDS: ELIQUIS 5 MG PO ×2 (09:01→20:32)
[2025-06-07] MEDS: ALDACTONE PO (09:01)
[2025-06-07] MEDS: ZESTRIL PO (09:01)
[2025-06-07] MEDS: PACERONE 200 MG PO ×2 (09:02→20:32)
[2025-06-07] MEDS: MIRALAX 17 GRAMS PO (09:02)
[2025-06-08] VITALS (7 sets, daily range): BP systolic 95–133; BP diastolic 54–111; BMI 25.2
[2025-06-08 05:39] LABS: Hematocrit 45.7 % (39.0-52.0); Hemoglobin 15.1 g/dL (13.0-18.0); Mean Corp Hgb Conc. 33.0 g/dL (33.0-37.0); Mean Corpuscular Volume 94.4 fL (80.0-94.0); Platelet Count 293 10^3/uL (130-400); Red Cell Dist. Width 15.0 % (11.5-14.5)
[2025-06-08 06:02] LABS: Blood Urea Nitrogen 39 mg/dl (9-20); Calcium 9.0 mg/dl (8.4-10.2); Carbon Dioxide 28 mmol/L (22-30); Chloride 102 mmol/L (98-107); Estimated Creatinine Clearance 70 ml/min; Glucose 95 mg/dl (70-99); Potassium 4.8 mmol/L (3.5-5.1); Sodium 136 mmol/L (135-145); eGFR > 60.00
--- NOTE | 2025-06-08 06:33 | PTCARENOTE ---
Pt denies complaints at this time. VSS. Call moreira within reach. Voiding in urinal independently. Care ongoing.
[2025-06-08] MEDS: MIRALAX 17 GRAMS PO (08:19)
[2025-06-08] MEDS: PACERONE 200 MG PO (08:20)
[2025-06-08] MEDS: COREG 12.5 MG PO (08:20)
[2025-06-08] MEDS: SENOKOT-S 2 TABLET PO (08:20)
[2025-06-08] MEDS: ELIQUIS 5 MG PO (08:21)
--- NOTE | 2025-06-08 08:38 | W.PN.CARDCBS ---
Addendum entered and electronically signed by Bobo Shea, DO 06/08/25 09:37:
.
Continue hold Lisinopril for now given hypotension and prior renal insufficiency
Original Note:
Today's Communication / Plan
-
Remains in rate controlled atrial fibrillation
LENARD 06/06/25 with possible SHERRY thrombus and DCCV was not performed
Continue Eliquis with plan for repeat LENARD in ~6 weeks to reassess
Continue Coreg 12.5 mg p.o. twice daily with amiodarone 200mg daily for adjunct rate control
Avoid calcium blockers given systolic dysfunction.
Heart failure with reduced ejection fraction appears euvolemic
Cr has normalized. Resume lasix at 40 mg daily.
Check BMP in one week.
Resume Lisinopril at 2.5 mg daily
Hold Aldactone and will consider resuming these as outpt.
Cont medical therapy of nonMI troponin
Impression / Plan
-
PCP: Dr. Baldwin
State Archivist: Dr Donaldson
Impression:
AFib RVR, improved rate
Acute heart failure with reduced EF, possibly tachycardia mediated, improved
Transient cardiogenic shock in the setting of IV diltiazem, requiring pressors, calcium, glucagon, resolved
Acute renal insufficiency
Elevated troponin, likely nonMI troponin elevation
Nonischemic cardiomyopathy
HTN
Hyperglycemia
Leukocytosis
Previous cardiovascular testing:
Left heart cath 05/05/2023: Normal coronary arteries
Echo 02/06/2023: EF 41%, mild to moderate MR
Echo 06/29/2023: EF 51%
Echo 05/24/2025: EF 15 to 20%, top normal LV, possible inferior akinesis with severe global hypokinesis, moderate MR, MAC, dilated left atrium, aortic sclerosis, borderline dilated RV with hypokinesis and dilated RA, pulmonary artery pressure was 33
at the time of the study
Plan:
Remains in rate controlled atrial fibrillation
LENARD 06/06/25 with possible SHERRY thrombus and DCCV was not performed
Continue Eliquis with plan for repeat LENARD in ~6 weeks to reassess
Continue Coreg 12.5 mg p.o. twice daily with amiodarone 200mg daily for adjunct rate control
Avoid calcium blockers given systolic dysfunction.
Heart failure with reduced ejection fraction appears euvolemic
Cr has normalized. Resume lasix at 40 mg daily.
Check BMP in one week.
Resume Lisinopril at 2.5 mg daily
Hold Aldactone and will consider resuming these as outpt.
Continue antibiotics for pneumonia per primary service and infectious disease
Cont medical therapy of nonMI troponin (Low-level troponin elevation noted on 05/23 and 05/24 0.056, 0.064, 0.071)
Nonspecific ST/T wave changes on ECG are similar to prior tracings
Left heart catheterization in 2022 with normal coronaries
Likely nonischemic myocardial injury troponin elevation due to acute heart failure and A-fib RVR
No plans currently for ischemic evaluation, could consider as outpt.
Discussed with primary service
Progress Note - State Archivist
Subjective
Date of Service: June 08, 2025
Pt seen and examined. No complaints. No chest pain or shortness of breath.
Objective
Labs:
06/08/25 05:12
06/08/25 05:12
Labs
Hgb 15.1 g/dL (13.0-18.0) 06/08/25 05:12
Hct 45.7 % (39.0-52.0) 06/08/25 05:12
Plt Count 293 10^3/uL (130-400) 06/08/25 05:12
PT 20.2 Sec (11.4-14.6) H 05/24/25 12:43
INR 1.70 05/24/25 12:43
APTT 27.8 Sec (23.4-35.0) 05/24/25 12:43
Sodium 136 mmol/L (135-145) 06/08/25 05:12
Potassium 4.8 mmol/L (3.5-5.1) 06/08/25 05:12
BUN 39 mg/dl (9-20) H 06/08/25 05:12
Creatinine 1.1 mg/dL (0.7-1.3) 06/08/25 05:12
Glucose 95 mg/dl (70-99) 06/08/25 05:12
Digoxin < 0.4 ng/ml (0.8-2.0) L 05/30/25 07:33
Vital Signs and I&O:
Vital Signs
Temp Pulse Resp BP Pulse Ox
97.8 F 81 11 133/91 96
06/08/25 03:00 06/08/25 06:02 06/08/25 06:02 06/08/25 06:02 06/07/25 21:18
Vital Signs
Temp Pulse Resp BP Pulse Ox
97.8 F 81 11 133/91 96
06/08/25 03:00 06/08/25 06:02 06/08/25 06:02 06/08/25 06:02 06/07/25 21:18
Intake & Output
06/06/25 06/07/25 06/08/25 06/09/25
06:59 06:59 06:59 06:59
Intake Total 480 / 480
Output Total 400 / 400 1375 / 1375 1250 / 1250
Balance -400 / -400 -895 / -895 -1250 / -1250
Physical Exam
Physical Exam
General: No acute distress, AAOX3
Neck: Negative JVD
Heart: Irregularly irregular, Negative S3 positive S1/S2, Negative S4, No murmur
Lungs: CTA b/l, negative wheezes/rales/rhonchi
Abd: Positive BS, NT/ND, neg rebound/rigidity/guarding
Ext: Negative cyanosis/clubbing/edema
Neuro: nonfocal
--- NOTE | 2025-06-08 08:44 | W.PN.HOSP.TC ---
Today's Communication/Plan
-
d/c
Assessment / Plan
Assessment / Plan
Gen: NAD, Awake and alert
Eyes: EOMI, PERRLA, no scleral icterus.
Neck: supple.
CV: continues to remain irreg/irreg, +S1/S2, no m/r/g.
Resp: continues to remain CTAB anteriorly, no rales, wheezes, or rhonchi.
Abd: +BS, soft, NT, ND
Skin: No rashes.
Neuro: continues to remain CN 2-12 intact, non-focal.
Psych: Normal mood and affect.
05/28/25 09:22 Blood/Venous Blood Culture - Final
No Growth - Final Report
05/27/25 12:13 Blood/Venous Blood Culture - Final
No Growth - Final Report
05/27/25 12:13 Blood/Venous Blood Culture - Final
No Growth - Final Report
05/28/25 21:42 Tracheal Aspirate Respiratory Culture - Final
NO GROWTH
05/28/25 21:42 Tracheal Aspirate Gram Stain - Final
05/27/25 11:40 Tracheal Aspirate Respiratory Culture - Final
Moraxella catarrhalis
05/27/25 11:40 Tracheal Aspirate Gram Stain - Final
05/27/25 11:39 Nose Nasal Screen MRSA (PCR) - Final
MRSA not detected - performed by PCR methodology.
05/24/25 13:48 Endotracheal Respiratory Culture - Final
Usual Respiratory Viviane
05/24/25 13:48 Endotracheal Gram Stain - Final
CXR: Interstitial pulmonary edema with small bilateral pleural effusions.
Echo:
1. Top normal left ventricular size with severe global hypokinesis, EF 15 to 20% with possible akinesis of the inferior segments
2. Thickened mitral leaflets, moderate mitral regurgitation, mitral annular calcification, and dilated left atrium
3. Aortic sclerosis without stenosis or regurgitation
4. Borderline dilated right ventricle with hypokinesis and dilated right atrium, mild tricuspid regurgitation, pulmonary artery systolic pressure 33mmHg
In June 2023, the ejection fraction was 51%. The apical septum was akinetic there is mild mitral regurgitation.
CXR 05/25/25: Progressed prominence of the central vasculature and opacification lower lung roberts concerning for pulmonary edema. Bilateral pneumonia and pleural effusions cannot be excluded. Cardiomegaly. Stable.
CT brain: No acute intracranial abnormality noted.
CTA head/neck: No evidence of acute vascular pathology. No M1 nor M2 occlusion. Right vertebral artery pathology as described above. Unclear if chronic/congenital or acute. Large bilateral pleural effusions. New. Moderate bilateral lower lobe
consolidation. This may represent pneumonia or atelectasis. New. Multilevel degenerative disc disease.
MELANIA:
-initially was due to CRS and resolved
-then Cr increased to 1.4 from 0.9 on 06/07/25
-lasix/ACEi/aldactone held and Cr now 1.1
Ventilator dependent respiratory failure:
-due to unresponsive episode due to Cardizem toxicity causing bradycardia and hypotension (cardiogenic shock) on 05/24/25
-extubated 05/29/25
-neuro saw in c/s, no evidence of CVA, imaging above
-CT imaging with no evidence of severe vascular occlusion
Sepsis due to purulent tracheobronchitis:
-with acute metabolic encephalopathy due to sepsis
-tracheal aspirate Cx 05/27/25 with Moraxella catarrhalis
-tracheal aspirate Cx 05/28/25 ND
-Cefepime started 05/27/25AM, stopped 06/03/25AM as pt completed 7 days
-last fever 05/29/25PM, leukocytosis improved
Atrial fibrillation with RVR:
-s/p LENARD/cardioversion January 2023, CV February 2023, started on Amio 01/2023
-h/o GIB due to hemorrhoids
-in the past pt did not want to have ablation
-was on a Cardizem gtt. On 05/24/25 pt developed bradycardia and hypotension while on the Cardizem drip, received 1mg epi, was intubated for airway protection. BB/ACEi/Aldactone held for hypotension at the time.
-coreg now resumed and increased
-cont eliquis/amio/Dig
Acute on chronic HFrEF:
-due to Afib with RVR + medical noncompliance
-previously had a recovered EF, now EF 15-20%
-ACEi/Aldactone/Coreg/IV Lasix were on hold with hypotension/cardiogenic shock
-was on vasopressors for cardiogenic shock, now off pressors
-was on IV lasix which was stopped with MELANIA 06/07/25
-back on Coreg
-no ACEi/aldactone with MELANIA
-daily wts (down 20kg), I/Os
-TEECV on 06/06/25 aborted due to SHERRY thrombus
Other problems:
Respiratory Alkalosis, resolved
Hyponatremia, likely SIADH, mild
Mild transaminitis, likely due to congestive hepatopathy, resolved
Essential HTN: cont BB
FULL/Eliquis
Total time spent on d/c = 35 min. This included today's physical exam, progress note, review of laboratory and diagnostic data, preparation of discharge documents and prescriptions, and discussions about the pt's hospital course and discharge plan
with the patient and other medical nurse involved in the patient's care.
Anticipated Discharge: Today
Subjective/Interval History
-
Date of Service: June 08, 2025
No new complaints.
Objective Data
-
Labs:
Laboratory Results
06/08/25
05:12
WBC 10.1
Hgb 15.1
Hct 45.7
Plt Count 293
Sodium 136
Potassium 4.8
Chloride 102
Carbon Dioxide 28
BUN 39 H
Creatinine 1.1
Glucose 95
Calcium 9.0
Vital Signs:
Vital Signs
Temp Pulse Resp BP Pulse Ox
97.8 F 81 11 133/91 96
06/08/25 03:00 06/08/25 06:02 06/08/25 06:02 06/08/25 06:02 06/07/25 21:18
I&O
06/07/25 06/08/25 06/09/25
06:59 06:59 06:59
Intake Total 480 / 480
Output Total 1375 / 1375 1250 / 1250
Balance -895 / -895 -1250 / -1250
--- NOTE | 2025-06-08 11:35 | CM ---
CM reviewed pt with attending- ready for dc
Bed confirmed at [facility] with admissions/Danni
B[facility]ce auth received on 06/06
Call with sister to provide update
Pt does not meet criteria for BLS transport at this time
Sister declined WC vans fees- she will transport to SNF
Update to pt bedside
Discharge Disposition- [facility] via family transport ([id number])
Phone- [phone] Fax- [phone]
--- NOTE | 2025-06-08 12:00 | PTCARENOTE ---
report given to rn at [facility]
--- NOTE | 2025-06-08 13:13 | W.DCSUMMARY ---
Discharge Summary
Discharge Data
Date of Admission: 05/23/25
Date of Discharge: 06/08/25
-
Pending Results: No
Hospital Course
Primary diagnoses:
Atrial fibrillation with a rapid ventricular response
Acute on chronic heart failure with reduced ejection fraction
Sepsis due to purulent tracheobronchitis
Ventilator dependent respiratory failure
Acute kidney injury
Cardiogenic shock
Secondary diagnoses:
Acute metabolic encephalopathy
h/o GIB due to hemorrhoids
Respiratory Alkalosis
Hyponatremia, likely due to SIADH
Mild transaminitis, likely due to congestive hepatopathy
Essential hypertension
Consultants:
Cardiology
Critical care
Neurology
Imaging:
CXR: Interstitial pulmonary edema with small bilateral pleural effusions.
Echo:
1. Top normal left ventricular size with severe global hypokinesis, EF 15 to 20% with possible akinesis of the inferior segments
2. Thickened mitral leaflets, moderate mitral regurgitation, mitral annular calcification, and dilated left atrium
3. Aortic sclerosis without stenosis or regurgitation
4. Borderline dilated right ventricle with hypokinesis and dilated right atrium, mild tricuspid regurgitation, pulmonary artery systolic pressure 33mmHg
In June 2023, the ejection fraction was 51%. The apical septum was akinetic there is mild mitral regurgitation.
CXR 05/25/25: Progressed prominence of the central vasculature and opacification lower lung roberts concerning for pulmonary edema. Bilateral pneumonia and pleural effusions cannot be excluded. Cardiomegaly. Stable.
CT brain: No acute intracranial abnormality noted.
CTA head/neck: No evidence of acute vascular pathology. No M1 nor M2 occlusion. Right vertebral artery pathology as described above. Unclear if chronic/congenital or acute. Large bilateral pleural effusions. New. Moderate bilateral lower lobe
consolidation. This may represent pneumonia or atelectasis. New. Multilevel degenerative disc disease.
60-year-old male presented with a chief complaint of dyspnea as outlined in the H&P done on admission. The patient had a prolonged complicated hospitalization and it might be beneficial to refer to the progress notes. Hospital course by problem
list:
Acute on chronic HFrEF: This was due to Afib with RVR + medical noncompliance.the patient previously had a recovered EF, now EF 15-20%. He was initially on ACEi/Aldactone/Coreg/IV Lasix had to be held with hypotension/cardiogenic shock
The patient was on vasopressors for cardiogenic shock which were weaned off. He was diuresed with IV lasix which was stopped with MELANIA 06/07/25. The patient's Coreg was resumed. He also was placed back on ACEi/aldactone which had to be stopped with
MELANIA. The patient's weight decreased by about 20 kg while hospitalized.
Atrial fibrillation with RVR: The patient had a h/o LENARD/cardioversion January 2023, CV February 2023, started on Amio 01/2023. The patient had a history of GIB due to hemorrhoids. Prior to admission the patient did not want to have an ablation.the
patient initially was on a Cardizem gtt. On 05/24/25 the patient developed bradycardia and hypotension while on the Cardizem drip, received 1mg epi, was intubated for airway protection. BB/ACEi/Aldactone held for hypotension at the time. The
patient's Coreg was able to be resumed. He was placed on digoxin, amiodarone, Eliquis. The patient was to have TEECV on 06/06/25 but this was aborted due to SHERRY thrombus.
MELANIA: This was initially was due to CRS and resolved. Then the patient's Cr increased to 1.4 from 0.9 on 06/07/25. Lasix/ACEi/aldactone were held and Cr improved to 1.1. At the time of discharge the patient's Lasix was resumed. ACEi/aldactone were
not resumed due to MELANIA.
Ventilator dependent respiratory failure: This was due to unresponsive episode due to Cardizem toxicity causing bradycardia and hypotension (cardiogenic shock) on 05/24/25. He was extubated 05/29/25. Neuro saw in c/s, no evidence of CVA, imaging
above. CT imaging with no evidence of severe vascular occlusion.
Sepsis due to purulent tracheobronchitis: This was associated with acute metabolic encephalopathy due to sepsis. Tracheal aspirate Cx 05/27/25 with Moraxella catarrhalis, tracheal aspirate Cx 05/28/25 no growth. Cefepime started 05/27/25, stopped
06/03/25 as the patient completed 7 days. His fever resolved and his leukocytosis improved.
Discharge Plan
-
Patient Disposition: Residential/SNF
Discharge Diagnosis/Procedures: Atrial fibrillation with a rapid ventricular response, acute on chronic heart failure with reduced ejection fraction, sepsis due to purulent tracheobronchitis, ventilator dependent respiratory failure, acute kidney
injury
Condition: Fair
Diet: Low Cholesterol, Low Sodium and Other diet
Additional Diets: fluid restrict to 1200cc/day
Activity: As tolerated
Driving Restrictions: Not until seen by your Dr
Blood Work: BMP and CBC in 5 days, prescription from PCP
Specialty Instructions: Weigh Daily- Call MD for wt gain/loss 3 lbs overnight/5 lbs in 1 week
Referrals:
Husam Baldwin MD [Family Provider, Family Practice]
Prescriptions:
New
furosemide 40 mg Tablet
40 mg PO DAILY Qty: 0 0RF
polyethylene glycol 3350 17 gram Powder In Packet
17 g PO DAILY Qty: 0 0RF
amiodarone [Pacerone] 200 mg Tablet
200 mg PO BID Qty: 1 0RF
carvedilol 3.125 mg Tablet
12.5 mg PO BID Qty: 1 0RF
Continued
acetaminophen [Tylenol] 325 mg Tablet
325 mg PO DAILYPRN PRN (Reason: mild pain)
Eliquis 5 mg Tablet
5 mg PO BID
Discontinued
carvedilol 6.25 mg Tablet
6.25 mg PO BID
spironolactone 25 mg Tablet
25 mg PO DAILY
lisinopril 5 mg Tablet
5 mg PO DAILY
Discharge Orders:
Discharge Patient (As Directed); Ordered 06/08/25
Ordered By: Giovanni Villarreal
Discharge Date and Time
Print Language: TURKISH
== END 2025-06-08 14:15 | DRG 291 ==
LOC: IMU 23:02
PROVIDERS: Emergency Medicine; Internal Medicine; Internal Medicine Cardiovascular Disease; Nurse Practitioner Primary Care; ADMITTING PHYSICIAN Internal Medicine; ATTENDING PHYSICIAN Internal Medicine; CONSULT PHYSICIAN Internal Medicine Critical Care Medicine; CONSULT PHYSICIAN Psychiatry & Neurology Neurology; EMERGENCY PHYSICIAN Student in an Organized Health Care Education/Training Program; FAMILY PHYSICIAN Family Medicine; OTHER PHYSICIAN Internal Medicine Cardiovascular Disease
PROC: 03HY32Z Insertion of Monitoring Device into Upper Artery, Percutaneous Approach (ICD-10-PCS; 2025-05-24)
PROC: 02HV33Z Insertion of Infusion Device into Superior Vena Cava, Percutaneous Approach (ICD-10-PCS; 2025-05-24)
PROC: 0BH17EZ Insertion of Endotracheal Airway into Trachea, Via Natural or Artificial Opening (ICD-10-PCS; 2025-05-24)
PROC: 5A1955Z Respiratory Ventilation, Greater than 96 Consecutive Hours (ICD-10-PCS; 2025-05-24)
PROC: B24BZZ4 Ultrasonography of Heart with Aorta, Transesophageal (ICD-10-PCS; 2025-06-06)
DX: I11.0 Hypertensive heart disease with heart failure (principal); A41.9 Sepsis, unspecified organism; I50.23 Acute on chronic systolic (congestive) heart failure; J96.00 Acute respiratory failure, unspecified whether with hypoxia or hypercapnia; R57.0 Cardiogenic shock; G93.41 Metabolic encephalopathy; I48.21 Permanent atrial fibrillation; N17.9 Acute kidney failure, unspecified; E87.3 Alkalosis; E22.2 Syndrome of inappropriate secretion of antidiuretic hormone; I5A Non-ischemic myocardial injury (non-traumatic); J40 Bronchitis, not specified as acute or chronic; I42.8 Other cardiomyopathies; R00.1 Bradycardia, unspecified; T46.1X5A Adverse effect of calcium-channel blockers, initial encounter; R73.9 Hyperglycemia, unspecified; K76.1 Chronic passive congestion of liver; I51.3 Intracardiac thrombosis, not elsewhere classified; G43.909 Migraine, unspecified, not intractable, without status migrainosus; E66.01 Morbid (severe) obesity due to excess calories; Z68.25 Body mass index [BMI] 25.0-25.9, adult; Z91.141 Patient's other noncompliance with medication regimen due to financial hardship; Z79.01 Long term (current) use of anticoagulants; Z82.49 Family history of ischemic heart disease and other diseases of the circulatory system; Z87.891 Personal history of nicotine dependence; Z87.19 Personal history of other diseases of the digestive system
CPT/HCPCS: 0042T; 36600; 70450; 70496; 70498; 71045; 71046; 80048; 80053; 80061; 80162; 82310; 82330; 82805; 82962; 83036; 83735; 83880; 84100; 84132; 84302; 84478; 84484; 85025; 85027; 85610; 85730; 87040; 87070; 87077; 87185; 87205; 87641; 92523; 92526; 92610; 92612; 93005; 93306; 93312; 93320; 93325; 94002; 94003; 96365; 96366; 96375; 97163; 97167; 97530; 97535; 99291; J1160; J1610; Q9967

== ENCOUNTER 2025-07-18 06:38 | Day surgery (SDC) | payer OTHER, SELFPAY ==
--- NOTE | 2025-07-21 14:06 | ITS.CL.CARDI ---
[facility] Monitor - Cardioversion
Cardioversion
Procedure Report:
Date of Procedure: 07/18/25
Procedure: Cardioversion
Indication: Symptomatic atrial fibrillation
Performing Physician: Allison Armendariz DO [facility]
Anticoagulation: Eliquis
Antiarrhythmic therapy: Amiodarone
Preprocedure transesophageal echocardiogram without left atrial appendage thrombus
Technique: The patient was brought to the holding area. Signed informed consent was obtained. A time out was called and performed. The patient was anesthetized by the anesthesia service. Anticoagulation status was reviewed and appropriate.
Transesophageal echocardiogram completed without complications; no left atrial appendage thrombus. R2 pads were placed anteriorly and posteriorly. A 200J synchronized biphasic shock restored normal sinus rhythm without significant bradycardia. There
were no complications.
Conclusion: Uncomplicated cardioversion from atrial fibrillation to sinus rhythm.
Recommendation: Routine post cardioversion care. 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
== END 2025-07-18 09:07 | disposition home or self-care (01) ==
LOC: CATH 06:38
PROVIDERS: ATTENDING PHYSICIAN Internal Medicine Cardiovascular Disease; FAMILY PHYSICIAN Family Medicine; OTHER PHYSICIAN Internal Medicine Cardiovascular Disease
DX: I48.19 Other persistent atrial fibrillation (principal); I11.0 Hypertensive heart disease with heart failure; I50.20 Unspecified systolic (congestive) heart failure; I42.8 Other cardiomyopathies; Z87.891 Personal history of nicotine dependence; R73.03 Prediabetes; Z79.01 Long term (current) use of anticoagulants; I08.3 Combined rheumatic disorders of mitral, aortic and tricuspid valves
CPT/HCPCS: 93312; 93320; 93325; 92960; 93005

== ENCOUNTER → 2025-09-05 10:12 | Outpatient (REF) | payer OTHER, SELFPAY | LOC: RCS 10:12 | PROVIDERS: ATTENDING PHYSICIAN Nurse Practitioner; FAMILY PHYSICIAN Family Medicine | DX: I50.20 Unspecified systolic (congestive) heart failure (principal) | CPT/HCPCS: 93306 ==